=== PATIENT | male | born 1940 | race Caucasian/White ===

== ENCOUNTER → 2016-10-23 | Outpatient (CLI) | payer MEDICARE ==
[2016-10-23 11:53] LABS: Appearance,Urine Clear (Clear); Bilirubin,Urine Negative (Negative); Glucose,Urine (UA) Negative (Negative); Ketones,Urine Negative (Negative); Leukocyte Esterase,Urine Negative (Negative); Nitrite,Urine Negative (Negative); PH, Urine 5.5 (5.0-8.0); Protein,Urine Negative (Negative); Specific Gravity,Urine 1.016 (1.001-1.035); UA Billing (MACRO vs. MICRO) CHEM; Urobilinogen,Urine <2.0 mg/dL (<2.0)
[2016-10-23 11:55] LABS: Basophils % (A) 1 %; CH 29.1; CHCM 33.1; Eosinophils # (A) 0.2 k/uL (0-0.7); Eosinophils % (A) 4 %; HCT 38.5 % (39.0-53.0); HGB 12.7 gm/dL (13.0-17.5); Luc # (Auto) 0.13; Luc % (Auto) 2; Lymphocytes # (A) 1.7 k/uL (1.0-4.8); Lymphocytes % (A) 28 %; MCH 29.2 pg (25.0-35.0); MCHC 33.1 g/dL (31.0-37.0); MCV 88.2 fL (80.0-100.0); Mean Platelet Volume 7.8; Monocytes # (A) 0.4 k/uL (0-1.0); Monocytes % (A) 7 %; Neutrophils # (A) 3.4 k/uL (1.3-7.7); Neutrophils % (A) 59 %; RBC 4.36 m/uL (4.30-5.90); RDW 14.1 % (11.5-15.5); WBC 5.8 k/uL (3.8-10.6); WBC (Perox) 5.81
[2016-10-23 12:04] LABS: Partial Thromboplastin Time 23.5 sec (22.0-30.0); Prothrombin Time 10.4 sec (9.0-12.0)
[2016-10-23 12:15] LABS: Anion Gap 9 mmol/L; Blood Urea Nitrogen 23 mg/dL (9-20); Calcium 9.8 mg/dL (8.4-10.2); Carbon Dioxide 27 mmol/L (22-30); Chloride 105 mmol/L (98-107); Glucose 94 mg/dL (74-99); Non-African American GFR(MDRD) >60 (>60 ml/min/1.73 sqM); Sodium 141 mmol/L (137-145)
--- NOTE | 2016-10-23 15:12 | XR ---
EXAMINATION TYPE: XR chest 2V DATE OF EXAM: 10/23/2016 11:43 AM COMPARISON: None HISTORY: 75-year-old male presurgical testing for spine surgery TECHNIQUE: Frontal and lateral views FINDINGS: Heart is normal size. Mild elongation of the thoracic aorta with arch calcifications. Some strandy at electasis in the lower lungs. No consolidation or pleural effusion. IMPRESSION: No acute cardiopulmonary process.
== END | disposition home or self-care (01) ==
LOC: LABPAT 11:13
PROVIDERS: ATTEND Orthopaedic Surgery Orthopaedic Surgery of the Spine
DX: Z01.810 Encounter for preprocedural cardiovascular examination (principal); Z01.812 Encounter for preprocedural laboratory examination; M48.02 Spinal stenosis, cervical region
CPT/HCPCS: 71020; 80048; 81003; 85025; 85610; 85730; 86850; 86900; 86901; 87070

== ENCOUNTER 2016-11-05 08:03 | Inpatient (IN) | payer MEDICARE ==
[2016-10-27 14:37] VITALS: BMI 31.2
[~2016-11-05 08:03] MED LIST: BACITRACIN 50,000 UNIT, POLYMYXIN B 500,000 UNIT in SODIUM CHLORIDE 0.9% IRRIGATIO 1,00... IRRIGATION ONE; FAMOTIDINE 20 MG/2 ML VIAL IV PRN; HYDROmorphone 1 MG/ML 1 ML SYRINGE IVP PRN; LACTATED RINGERS 1,000 ML IV SCH; LIDOCAINE 1% 20 ML VIAL (10MG/ML) FOR IV START INTRADERMA PRN; MIDAZOLAM 2 MG/2 ML VIAL IV PRN; ONDANSETRON 4 MG/2 ML VIAL IVP PRN; ceFAZolin 2 GM in SODIUM CHLORIDE 0.9% 100 ML IVPB ONE
[2016-11-05] MEDS ORDERED: fentaNYL (PF) 50 MCG/ML 2 ML AMP IV ONE (12:01)
[2016-11-05] MEDS ORDERED: MIDAZOLAM 2 MG/2 ML VIAL ONE (12:30)
[2016-11-05] MEDS ORDERED: HYDROmorphone (PF) 1 MG/ML ONE (12:30)
[2016-11-05] MEDS ORDERED: SUCCINYLCHOLINE CHLORIDE 100 MG/5 ML SYR IV ONE (12:30)
[2016-11-05] MEDS ORDERED: ePHEDrine 50 MG/ML 1 ML AMP ONE (12:30)
[2016-11-05] MEDS ORDERED: fentaNYL (PF) 50 MCG/ML 2 ML AMP ONE (12:30)
[2016-11-05] MEDS ORDERED: GELATIN SPONGE,ABSORB (SMALL) 1 EACH SPONGE TOPICAL ONE (12:30)
[2016-11-05] MEDS ORDERED: PROPOFOL 10 MG/ML 20 ML VIAL IV ONE (12:30)
[2016-11-05] MEDS ORDERED: LIDOCAINE 0.5%-EPI 1:200,000 50 ML VIAL SQ ONE ×2 (12:30)
[2016-11-05] MEDS ORDERED: DEXAMETHASONE SOD PHOS (MDV) 100 MG/10 ML VIAL ONE (12:30)
[2016-11-05] MEDS ORDERED: THROMBIN (BOVINE) 5,000 UNIT VIAL TOPICAL ONE (12:30)
[2016-11-05] MEDS ORDERED: LIDOCAINE 1% INJ 10MG/ML (20 ML MDV) ONE (12:30)
[2016-11-05] MEDS ORDERED: BUPIVACAINE (PF) 0.25% 30 ML VIAL SQ ONE ×2 (13:34→14:18)
--- NOTE | 2016-11-05 13:48 | XR ---
EXAMINATION TYPE: XR cervical spine 1V DATE OF EXAM: 11/05/2016 COMPARISON: NONE HISTORY: Neck surgery. TECHNIQUE: Single portable crosstable lateral view of cervical spine is obtained intraoperatively FINDINGS: Metallic pointer is placed for surgical planning at C4-C5 disc space. IMPRESSION: As above
[2016-11-05] MEDS ORDERED: LACTATED RINGERS 1,000 ML IV ONE (14:05)
--- NOTE | 2016-11-05 14:16 | XR ---
EXAMINATION TYPE: XR cervical spine 1V DATE OF EXAM: 11/05/2016 COMPARISON: NONE HISTORY: Anterior cervical fusion TECHNIQUE: Cross table cervical spine FINDINGS: There is an anterior cervical fusion at C4-5. Patient is intubated. Prevertebral space appe ars normal. IMPRESSION: 1. Post C4-5 anterior cervical fusion.
--- NOTE | 2016-11-05 14:54 | P.OP ---
Date of Procedure: 11/05/16 Preoperative Diagnosis: Cervical stenosis C4 5, degenerative disc disease C4 5, history of prior fusion C5 6 C6 7, neck pain with upper extremity radiculopathy Left middle finger trigger finger Postoperative Diagnosis: Same Procedure(s) Performed: Anterior cervical discectomy and fusion C4 5 Placement of interbody allograft bone graft C4 5 Application of anterior cervical plate C4 5 Left middle finger A1 liseth release for trigger finger release, done as a separate procedure under the same anesthesia Implants: Anesthesia: GETA Pathology: none sent Condition: stable Disposition: PACU Indications for Procedure: Operative Findings: Description of Procedure: BRIEF OPERATIVE NOTE Preoperative Diagnosis: Cervical stenosis C4 5, degenerative disc disease C4 5, history of prior fusion C5 6 C6 7, neck pain with upper extremity radiculopathy Trigger finger left middle finger Postoperative Diagnosis: Same Procedure: Anterior cervical decompression and fusion C4 5 Placement of interbody graft C4 5 Application of anterior cervical plate C4 5 Trigger finger release with release of A1 liseth at left middle finger Surgeon: Dr. Salamanca Core Java Engineer: Julio Ng is present throughout the entire the case persistence during positioning, dissection, exposure, visualization, and all crucial elements of the case as well as closure. Anesthesia: General anesthesia Estimated blood loss: Approximately 75 mL Complications: None apparent Components implanted: K2M Jackson anterior cervical plate system with screws and Vikos interbody allograft bone graft Tourniquet time: Tourniquet was utilized during the A1 liseth release of the left middle finger for 12 minutes Disposition: To recovery room in good stable condition. OPERATIVE INDICATIONS The patient has had long-standing issues in their neck and upper extremities. He had a history of cervical issues in the past and had undergone anterior cervical deep compression and fusion at C5 6 and C6 7 in the past with overall good results. He developed adjacent level degeneration and further stenosis at C4 5 which was causing him increased pain and symptoms which correlated with his imaging findings of significant stenosis and adjacent level degeneration at C4 5. The patient was also having significant pain in his left middle finger with painful triggering at the site. He has been through injections at that area in the past with only brief relief. The patient has been through conservative treatment for his cervical spine and for his left middle finger. We discussed various treatment options including surgery, and the patient wishes to proceed with surgery We discussed the risk, patient's alternatives and benefits of surgery including but not limited to, risk of bleeding risk of infection, risk of need for further surgery, risk of decreased, loss of motion, muscle function, malunion nonunion, hardware failure , nerve damage, paralysis, heart attack, and . I answered all the patient' s questions to the best of my ability and leg which she can understand and elected to proceed with surgery at his cervical spine as well as his left middle finger. OPERATIVE SUMMARY After discussing all the risks, patient alternatives and benefits at length, the patient elected to proceed with surgical intervention, signed informed consent, and presented for their procedure. The patient was seen and examined in the preoperative holding area and the surgical site was marked. The patient was given antibiotics and brought to the operating room. The patient was positioned on the operating room table in a supine position being careful to pad any bony prominences and pressure points. The patient was sedated and intubated by anesthesia in standard fashion. Once the airway and C- spine were stabilized the patient's arms were padded and tucked at her side, with her shoulders gently taped. The head was placed in a donut pad with the neck in good neutral alignment and position. We were careful to maintain the patient's cervical spine and good neutral alignment and position throughout. The patient was prepped and draped in a normal standard fashion. An appropriate timeout and keystone protocol performed. We were able to proceed with the surgery. The local wound area was infiltrated with local anesthetic. An incision was made transversely approximately 2-1/2 cm over the appropriate levels of C4 5. Dissection was taken down subcutaneously to the level of the platysma which was split in line with its fibers. Dissection was taken with a carotid approach, with the trachea and esophagus medial and the carotid sheath laterally. We dissected down to the anterior surface of the vertebral bodies. Intraoperative x-ray was taken which showed a marker at the appropriate level at C4 5 over the prior fusion at C5 6 and 7. With the appropriate level positively confirmed, we were able to proceed with discectomy at the appropriate levels. All of the operative levels were exposed appropriately. The patient had all their twitches back, and there was no evidence of recurrent laryngeal issue. The wound was copiously irrigated and suctioned dry as had been done periodically throughout the case. At the appropriate level/levels, I established an annulotomy with an 11 blade scalpel. A discectomy was performed with a combination of pituitary rongeurs, curettes, a high-speed bur, and Kerrison rongeurs. The posterior longitudinal ligament was taken down as were any posterior osteophytes. Note was made of significant stenosis at the bilateral neural foramen particularly on the left. I was able to get excellent decompression with removal of posterior spurs and disc protrusion and the posterior longitudinal ligament. This gave good central and bilateral foraminal decompression. There is no evidence of any dural tear or leak. The endplates were prepared with a high-speed bur. With the endplates in good parallel position, I was able to size for the appropriate size interbody graft. The wound was irrigated and suctioned dry the graft was prepared and malleted into position. It had good alignment and position with the anterior surface flush with the anterior surface of the vertebral bodies. With the grafts intact, I was able to measure and contour and appropriate sized plate. The plate was positioned at the midline over the appropriate levels at C4 5. Screw holes were established with a hand drill and drill guide. Screws were placed in good alignment and position with excellent bony purchase. They were seated under the locking device. The construct was checked and found to be stable. Intraoperative x-ray was taken which showed good alignment and position of the implants at the appropriate levels at C4 5. There was no evidence of any dural tear or leak. Good hemostasis was maintained. The wound was copiously irrigated and suctioned dry as had been done periodically throughout the case. The platysma was closed with absorbable suture. The subcutaneous tissue was closed. The subcuticular tissue was closed with absorbable suture. The wound was cleaned and dried and dressed appropriately. A soft cervical collar was placed appropriately. At this point the drapes were broken down and under the same anesthesia with his cervical spine maintained we are able to prep and drape his left upper extremity for the procedure at his left middle finger. A nonsterile tourniquet was placed over his left arm and his hand was prepped and draped in normal standard fashion. An appropriate keystone protocol was established an appropriate timeout was completed. The left upper extremity was elevated and the tourniquet was inflated to 250 mmHg. It was utilized to total of 12 minutes. At the left middle finger we were able to identify the area over the A1 liseth at the distal metacarpal of the middle finger. The local wound area was infiltrated with plain anesthetic. An incision was made approximately 1-1/ 2 cm transversely dissection was taken down to level of the A1 liseth. The liseth was identified and split longitudinally with a 15 blade scalpel and careful to protect the flexor tendon underneath. Care was taken to release proximally and distally at the full extent of the A1 liseth. Flexor tendon was easily identified and mobilized taken through a range of motion and found to have no evidence of any further triggering. The wound was copiously irrigated and suctioned dry. We will proceed with closure. The skin was closed with 5-0 nylon. The area was cleaned and dried and dressed with Adaptic 4 x 4's and a bulky hand dressing. The drapes were broken down. The patient was woken up by anesthesia, extubated, transferred back gently to their hospital bed and brought to the recovery room in good stable condition. The patient will be admitted to the hospital for appropriate postoperative care , medical management and monitoring. We will continue to follow them closely about the postoperative course.
[2016-11-05] MEDS ORDERED: DIAZEPAM 5 MG TAB PO PRN (14:55)
[2016-11-05] MEDS ORDERED: ONDANSETRON 4 MG/2 ML VIAL IVP PRN (14:55)
[2016-11-05] MEDS ORDERED: HYDROmorphone 1 MG/ML 1 ML SYRINGE IVP PRN ×2 (14:55)
[2016-11-05] MEDS ORDERED: BENZOCAINE/MENTHOL LOZENG 1 EACH LOZENGE MUCOUS MEM PRN (14:55)
[2016-11-05] MEDS ORDERED: HYDROcodone/APAP 5-325MG 1 EACH TAB PO PRN (14:55)
[2016-11-05] MEDS ORDERED: ACETAMINOPHEN TAB 325 MG TAB PO PRN (14:57)
[2016-11-05] MEDS: SODIUM CHLORIDE 0.9% 1,000 ML IV SCH (16:38)
[2016-11-05] MEDS: ceFAZolin 2 GM in SODIUM CHLORIDE 0.9% 100 ML IVPB SCH ×2 (16:41→23:55)
[2016-11-05 16:52] VITALS: RESP 18
[2016-11-05] MEDS: traMADol 50 MG TAB PO PRN ×2 (18:08→23:55)
[2016-11-06] MEDS: SODIUM CHLORIDE 0.9% 1,000 ML IV SCH (06:04)
[2016-11-06 07:51] VITALS: BP 133/74; PULSE 72; TEMP 97.3
[2016-11-06 08:13] LABS: Basophils % (A) 0 %; CHCM 32.6; Eosinophils % (A) 0 %; HDW 2.51; HGB 11.8 gm/dL (13.0-17.5); Luc # (Auto) 0.07; Luc % (Auto) 1; Lymphocytes # (A) 1.1 k/uL (1.0-4.8); Lymphocytes % (A) 9 %; MCH 29.3 pg (25.0-35.0); MCHC 32.7 g/dL (31.0-37.0); MCV 89.5 fL (80.0-100.0); Mean Platelet Volume 7.8; Monocytes # (A) 0.3 k/uL (0-1.0); Monocytes % (A) 3 %; Neutrophils % (A) 88 %; RBC 4.03 m/uL (4.30-5.90); RDW 14.3 % (11.5-15.5); WBC 12.5 k/uL (3.8-10.6); WBC (Perox) 13.31
[2016-11-06] MEDS: traMADol 50 MG TAB PO PRN (08:29)
[2016-11-06] MEDS ORDERED: BACLOFEN 10 MG TAB PO SCH (09:00)
[2016-11-06] MEDS ORDERED: ATORVASTATIN 10 MG TAB PO SCH (09:00)
[2016-11-06] MEDS ORDERED: ASPIRIN 81 MG CHEW PO SCH (09:00)
[2016-11-06] MEDS ORDERED: LOSARTAN 50 MG TAB PO SCH (09:00)
--- NOTE | 2016-11-06 09:09 | P.DS ---
Providers Date of admission: 11/05/16 09:43 Attending physician: Nataliya Salamanca [facility] Course: The patient presented on the day of admission as per his operative note. He had severe cervical stenosis at C4 5 as well as painful trigger finger at the left middle finger. He underwent his surgery as per his operative note. He feels he is significant improving in terms of his neck and upper extremity. He is no longer triggering in his finger. He still has some soreness at his left finger. Physical Exam The incision site is clean dry and intact. There is no erythema no drainage. There is no purulence no evidence of infection. His neck does not have any significant swelling or erythema. His neck is soft and supple. His left hand dressings intact with no drainage or erythema. He is not triggering at his finger. Neurovascularly he is intact Abdomen soft and nontender. Chest has good excursion with deep inspiration and expiration. The patient has active and passive range of motion intact at the upper and lower extremities. There is no acute change in neurologic status. Hospital Course Postoperative day #1 status post anterior cervical discectomy and fusion at C4 5 for severe stenosis with degenerative disc disease as well as release of A1 liseth for his left middle finger trigger finger. The patient has been making good progress postoperatively. He feels he is making progress in terms of his overall symptoms at his neck and his left hand. They have completed the prophylactic antibiotics without any signs or symptoms of infection. The patient has been able to advance their diet, and is tolerating diet adequately. The pain was initially controlled with IV medications and is now controlled appropriately with oral medications. The patient has been able to increase their mobilization. The patient has progressed appropriately. I think they are in good stable condition for discharge today. They will be sent home with appropriate prescriptions. I answered their questions to the best of my ability in a language that they can understand and they are agreeable with the plan. They will follow up as directed in approximately 1 week or sooner if he is having problems. Patient Condition at Discharge: Good Plan - Discharge Summary New Discharge Prescriptions: New traMADol HCl [Ultram] 50 mg PO Q6H PRN #90 tab PRN Reason: Pain No Action Ibuprofen [Motrin] 200 mg PO Q6HR PRN PRN Reason: Pain Cetirizine HCl [Zyrtec] 10 mg PO DAILY PRN PRN Reason: seasonal allergies Acetaminophen Tab [Tylenol Tab] 325 mg PO Q4H PRN PRN Reason: Pain Simvastatin [Zocor] 20 mg PO DAILY Multivit-Min/FA/Lycopen/Lutein [Centrum Silver Tablet] 1 tab PO DAILY Losartan [Cozaar] 50 mg PO DAILY Baclofen [Lioresal] 10 mg PO DAILY Aspirin [Adult Low Dose Aspirin EC] 81 mg PO DAILY Discharge Medication List Acetaminophen Tab [Tylenol Tab] 325 mg PO Q4H PRN 10/27/16 [History] Aspirin [Adult Low Dose Aspirin EC] 81 mg PO DAILY 10/27/16 [History] Baclofen [Lioresal] 10 mg PO DAILY 10/27/16 [History] Cetirizine HCl [Zyrtec] 10 mg PO DAILY PRN 10/27/16 [History] Ibuprofen [Motrin] 200 mg PO Q6HR PRN 10/27/16 [History] Losartan [Cozaar] 50 mg PO DAILY 10/27/16 [History] Multivit-Min/FA/Lycopen/Lutein [Centrum Silver Tablet] 1 tab PO DAILY 10/27/16 [ History] Simvastatin [Zocor] 20 mg PO DAILY 10/27/16 [History] traMADol HCl [Ultram] 50 mg PO Q6H PRN #90 tab 11/06/16 [Rx] Follow up Appointment(s)/Referral(s): Nataliya Salamanca DO [Doctor of Osteopathic Medicine] - 1 Week (Follow-up for right hand and neck procedures) Activity/Diet/Wound Care/Special Instructions: For his cervical spine Keep site clean. May shower with waterproof Tegaderm intact. Do not soak in a tub. On Thursday remove dressing and then may shower with area uncovered. Leave Steri- Strips intact and allow them to fray off on their own. Avoid heavy or rigorous activity. May ambulate to tolerance. For his left hand Keep dressing intact for 48 hours. Then may remove dressing. Avoid heavy or rigorous activity with left hand. Keep sutures clean and intact Discharge Disposition: HOME SELF-CARE
[2016-11-06] MEDS ORDERED: MULTIVITAMINS, THERA 1 EACH TAB PO SCH (12:00)
== END 2016-11-06 10:13 | disposition home or self-care (01) | DRG 473 ==
LOC: 2ORMAIN 09:43 → 5MS5E 14:48 → 5ONC 11-06 03:28
PROVIDERS: ADMIT Orthopaedic Surgery Orthopaedic Surgery of the Spine; ATTEND Orthopaedic Surgery Orthopaedic Surgery of the Spine
PROC: 0LN80ZZ Release Left Hand Tendon, Open Approach (ICD-10-PCS; principal; 2016-11-05 11:45)
PROC: 0RG10K0 Fusion of Cervical Vertebral Joint with Nonautologous Tissue Substitute, Anterior Approach, Anterior Column, Open Approach (ICD-10-PCS; principal; 2016-11-05 11:45)
PROC: 0RT30ZZ Resection of Cervical Vertebral Disc, Open Approach (ICD-10-PCS; principal; 2016-11-05 11:45)
DX: M48.02 Spinal stenosis, cervical region (principal); E78.5 Hyperlipidemia, unspecified; Z79.899 Other long term (current) drug therapy; M50.11 Cervical disc disorder with radiculopathy, high cervical region; Z87.891 Personal history of nicotine dependence; M65.339 Trigger finger, unspecified middle finger
CPT/HCPCS: 72020; 85025; 86850; 86900; 86901

== ENCOUNTER 2016-12-11 06:36 | Observation (INO) | payer MEDICARE ==
[2016-12-11] MEDS ORDERED: RX INFO: IV CONTRAST WAS GIVEN 1 EACH MISC MISCELLANE PRN (07:22)
[2016-12-11] MEDS ORDERED: NITROGLYCERIN SL TABS 0.4 MG TAB SUBLINGUAL STA ×3 (07:22)
[2016-12-11] MEDS ORDERED: ASPIRIN 81 MG CHEW PO STA (07:22)
--- NOTE | 2016-12-11 07:25 | ED ---
General Adult HPI - General Chief complaint: Chest Pain Stated complaint: Chest Pain Time Seen by Provider: 12/11/16 07:00 Source: patient, family, RN notes reviewed Mode of arrival: ambulatory Limitations: no limitations - History of Present Illness Initial comments: Patient is a pleasant 75-year-old male presenting to the emergency department complaining of chest discomfort. Discomfort feels like squeezing under the left breast. Discomfort has been waxing and waning but progressively worsening since 8:00 last night. Patient did move some furniture prior to onset of symptoms, around an hour however did not notice any discomfort at that time. Patient states it hurts to take a deep breath otherwise is breathing okay. No nausea or diaphoresis. No history of similar symptoms previously. Discomfort is starting to get severe. Patient did have cervical fusion done just over 1 month ago. - Related Data Home Medications Medication Instructions Recorded Confirmed Acetaminophen Tab [Tylenol Tab] 650 mg PO Q4H PRN 10/27/16 12/11/16 Aspirin [Adult Low Dose Aspirin EC] 81 mg PO DAILY 10/27/16 12/11/16 Baclofen [Lioresal] 10 mg PO BID PRN 10/27/16 12/11/16 Cetirizine HCl [Zyrtec] 10 mg PO DAILY PRN 10/27/16 12/11/16 Losartan [Cozaar] 50 mg PO DAILY 10/27/16 12/11/16 Multivit-Min/FA/Lycopen/Lutein 1 tab PO DAILY 10/27/16 12/11/16 [Centrum Silver Tablet] Simvastatin [Zocor] 20 mg PO HS 10/27/16 12/11/16 HYDROcodone/APAP 5-325MG [[place] 1 tab PO Q8H PRN 12/11/16 12/11/16 5-325] Allergies Allergy/AdvReac Type Severity Reaction Status Date / Time morphine Allergy Severe Itching Verified 12/11/16 07:29 hydrocodone [From Vicodin] Allergy Itching Verified 12/11/16 07:29 Review of Systems ROS Statement: Those systems with pertinent positive or pertinent negative responses have been documented in the HPI. ROS Other: All systems not noted in ROS Statement are negative. Constitutional: Denies: fever Eyes: Denies: eye pain ENT: Denies: ear pain Respiratory: Denies: cough Cardiovascular: Reports: chest pain Endocrine: Denies: fatigue Gastrointestinal: Denies: abdominal pain Genitourinary: Denies: dysuria Musculoskeletal: Denies: back pain Skin: Denies: rash Neurological: Denies: weakness Past Medical History Past Medical History: Hyperlipidemia, Hypertension, Sleep Apnea/CPAP/BIPAP Additional Past Medical History / Comment(s): muscle spasms, seasonal allergies History of Any Multi-Drug Resistant Organisms: None Reported Past Surgical History: Appendectomy, Back Surgery, Heart Catheterization, Joint Replacement, Orthopedic Surgery, Tonsillectomy Additional Past Surgical History / Comment(s): lumbar and cervical fusion, left knee replaced, guera rotator cuff, guera cataract sx with implants, Past Anesthesia/Blood Transfusion Reactions: No Reported Reaction Past Psychological History: No Psychological Hx Reported Smoking Status: Former smoker - Past Family History Mother Family Medical History: Cancer Additional Family Medical History / Comment(s): colon General Exam Limitations: no limitations General appearance: alert, in no apparent distress Head exam: Present: atraumatic Eye exam: Present: normal appearance, PERRL ENT exam: Present: normal oropharynx Neck exam: Present: normal inspection Respiratory exam: Present: normal lung sounds bilaterally. Absent: chest wall tenderness Cardiovascular Exam: Present: regular rate, normal rhythm Expanded Peripheral pulses: 2+: Radial (R), Radial (L), Dorsalis Pedis (R), Dorsalis Pedis (L) GI/Abdominal exam: Present: soft. Absent: tenderness Extremities exam: Present: normal inspection. Absent: pedal edema, calf tenderness Neurological exam: Present: alert Psychiatric exam: Present: normal affect, normal mood Skin exam: Present: normal color Course Vital Signs 12/11/16 12/11/16 12/11/16 06:39 07:29 07:34 Temperature 97.8 F Pulse Rate 74 69 75 Respiratory 18 18 20 Rate Blood Pressure 125/69 121/66 89/50 O2 Sat by Pulse 96 95 94 L Oximetry 12/11/16 08:12 Temperature Pulse Rate 72 Respiratory 18 Rate Blood Pressure 114/60 O2 Sat by Pulse 96 Oximetry - Reevaluation(s) Reevaluation #1: 12/11/16 08:47 Patient reevaluated and resting comfortably in bed. Patient and family updated on results and plan. They were specifically updated on concerns for thoracic aneurysm and need for follow-up with this. Patient already has known aortic aneurysm and does see Dr. Barajas from vascular surgery for this. They are agreeable to follow-up for thoracic aneurysm as well. EKG Findings - EKG Comments: EKG Findings:: Sinus rhythm at 76. First-degree AV block NC of 228. QRS 76. QT 380. QTC 427. Normal axis. Normal QRS. No acute ST change. Medical Decision Making - Medical Decision Making Case was discussed with Dr. Morocho, who will admit for Dr. Dudley. - Lab Data Result diagrams: 12/11/16 07:03 12/11/16 07:03 Lab Results 12/11/16 12/11/16 12/11/16 Range/Units 07:03 07:03 07:03 WBC 10.6 (3.8-10.6) k/uL RBC 4.28 L (4.30-5.90) m/uL Hgb 12.5 L (13.0-17.5) gm/dL Hct 36.7 L (39.0-53.0) % MCV 85.7 (80.0-100.0) fL MCH 29.3 (25.0-35.0) pg MCHC 34.2 (31.0-37.0) g/dL RDW 13.9 (11.5-15.5) % Plt Count 133 L (150-450) k/uL Neutrophils % 73 % Lymphocytes % 19 % Monocytes % 4 % Eosinophils % 2 % Basophils % 1 % Neutrophils # 7.7 (1.3-7.7) k/uL Lymphocytes # 2.1 (1.0-4.8) k/uL Monocytes # 0.4 (0-1.0) k/uL Eosinophils # 0.2 (0-0.7) k/uL Basophils # 0.1 (0-0.2) k/uL PT (9.0-12.0) sec INR (<1.1) APTT (22.0-30.0) sec Sodium 140 (137-145) mmol/L Potassium 4.0 (3.5-5.1) mmol/L Chloride 104 (98-107) mmol/L Carbon Dioxide 23 (22-30) mmol/L Anion Gap 13 mmol/L BUN 23 H (9-20) mg/dL Creatinine 0.85 (0.66-1.25) mg/dL Est GFR (MDRD) Af Amer >60 (>60 ml/min/1.73 sqM) Est GFR (MDRD) Non-Af >60 (>60 ml/min/1.73 sqM) Glucose 110 H (74-99) mg/dL Calcium 9.3 (8.4-10.2) mg/dL Magnesium 2.1 (1.6-2.3) mg/dL Total Bilirubin 0.5 (0.2-1.3) mg/dL AST 21 (17-59) U/L ALT 26 (21-72) U/L Alkaline Phosphatase 81 (38-126) U/L Total Creatine Kinase 125 (55-170) U/L CK-MB (CK-2) 1.6 (0.0-2.4) ng/mL CK-MB (CK-2) Rel Index 1.3 Troponin I <0.012 (0.000-0.034) ng/mL Total Protein 7.3 (6.3-8.2) g/dL Albumin 4.2 (3.5-5.0) g/dL 12/11/16 Range/Units 07:03 WBC (3.8-10.6) k/uL RBC (4.30-5.90) m/uL Hgb (13.0-17.5) gm/dL Hct (39.0-53.0) % MCV (80.0-100.0) fL MCH (25.0-35.0) pg MCHC (31.0-37.0) g/dL RDW (11.5-15.5) % Plt Count (150-450) k/uL Neutrophils % % Lymphocytes % % Monocytes % % Eosinophils % % Basophils % % Neutrophils # (1.3-7.7) k/uL Lymphocytes # (1.0-4.8) k/uL Monocytes # (0-1.0) k/uL Eosinophils # (0-0.7) k/uL Basophils # (0-0.2) k/uL PT 10.1 (9.0-12.0) sec INR 1.0 (<1.1) APTT 24.7 (22.0-30.0) sec Sodium (137-145) mmol/L Potassium (3.5-5.1) mmol/L Chloride (98-107) mmol/L Carbon Dioxide (22-30) mmol/L Anion Gap mmol/L BUN (9-20) mg/dL Creatinine (0.66-1.25) mg/dL Est GFR (MDRD) Af Amer (>60 ml/min/1.73 sqM) Est GFR (MDRD) Non-Af (>60 ml/min/1.73 sqM) Glucose (74-99) mg/dL Calcium (8.4-10.2) mg/dL Magnesium (1.6-2.3) mg/dL Total Bilirubin (0.2-1.3) mg/dL AST (17-59) U/L ALT (21-72) U/L Alkaline Phosphatase (38-126) U/L Total Creatine Kinase (55-170) U/L CK-MB (CK-2) (0.0-2.4) ng/mL CK-MB (CK-2) Rel Index Troponin I (0.000-0.034) ng/mL Total Protein (6.3-8.2) g/dL Albumin (3.5-5.0) g/dL - Radiology Data Radiology results: report reviewed (CT of the chest does show no pulmonary embolism. There is thoracic aortic aneurysm. Atelectasis versus early consolidation lung bases.), image reviewed (X-ray shows possible left base developing infiltrate.) Disposition Clinical Impression: Chest pain Disposition: ADMITTED IP TO THIS [facility] Referrals: Em Em MD [Primary Care Provider] - 1-2 days Decision Time: 09:23
[2016-12-11 07:35] LABS: Basophils # (A) 0.1 k/uL (0-0.2); Basophils % (A) 1 %; CH 28.7; CHCM 33.6; Eosinophils # (A) 0.2 k/uL (0-0.7); Eosinophils % (A) 2 %; HCT 36.7 % (39.0-53.0); HDW 2.57; HGB 12.5 gm/dL (13.0-17.5); Luc # (Auto) 0.13; Luc % (Auto) 1; Lymphocytes # (A) 2.1 k/uL (1.0-4.8); Lymphocytes % (A) 19 %; MCH 29.3 pg (25.0-35.0); MCHC 34.2 g/dL (31.0-37.0); MCV 85.7 fL (80.0-100.0); Mean Platelet Volume 7.8; Monocytes # (A) 0.4 k/uL (0-1.0); Monocytes % (A) 4 %; Neutrophils # (A) 7.7 k/uL (1.3-7.7); Neutrophils % (A) 73 %; RBC 4.28 m/uL (4.30-5.90); RDW 13.9 % (11.5-15.5); WBC 10.6 k/uL (3.8-10.6); WBC (Perox) 10.06
[2016-12-11 07:44] LABS: Partial Thromboplastin Time 24.7 sec (22.0-30.0); Prothrombin Time 10.1 sec (9.0-12.0)
[2016-12-11 07:47] LABS: ALT 26 U/L (21-72); AST 21 U/L (17-59); Alkaline Phosphatase 81 U/L (38-126); Anion Gap 13 mmol/L; Blood Urea Nitrogen 23 mg/dL (9-20); Calcium 9.3 mg/dL (8.4-10.2); Carbon Dioxide 23 mmol/L (22-30); Chloride 104 mmol/L (98-107); Glucose 110 mg/dL (74-99); Magnesium 2.1 mg/dL (1.6-2.3); Non-African American GFR(MDRD) >60 (>60 ml/min/1.73 sqM); Sodium 140 mmol/L (137-145); Total Bilirubin 0.5 mg/dL (0.2-1.3); Total Protein 7.3 g/dL (6.3-8.2)
--- NOTE | 2016-12-11 08:00 | XR ---
EXAMINATION TYPE: XR chest 2V DATE OF EXAM: 12/11/2016 COMPARISON: 10/23/2016 HISTORY: Shortness of breath TECHNIQUE: Frontal and lateral views of the chest are obtained. FINDINGS: Scattered senescent parenchymal changes noted. Hyperinflation compatible with COPD. Patchy density left medial lung base may reflect developing infiltrate. Correlate clinically and prog ress studies may be of value. Heart size is stable. Mediastinal structures are stable and grossly unremarkable. No evidence for hilar prominence. Degenerative changes dorsal spine. IMPRESSION: 1. Patchy density left medial lung base may reflect developing infiltrate. Correlate clinically and p rogress studies may be of value.
[2016-12-11 08:02] LABS: Creatine Kinase 125 U/L (55-170)
[2016-12-11 08:14] LABS: Creatine Kinase MB 1.6 ng/mL (0.0-2.4); Troponin I <0.012 ng/mL (0.000-0.034)
--- NOTE | 2016-12-11 08:25 | CT ---
EXAMINATION TYPE: CT angio chest DATE OF EXAM: 12/11/2016 8:13 AM COMPARISON: NONE HISTORY: SOB, Lt upper chest pain CT DLP: 583 mGycm Automated exposure control for dose reduction was used. CONTRAST: CTA scan of the thorax is performed with IV Contrast, patient injected with 100 mL of Omnipaque 350, pulmonary embolism protocol. . FINDINGS: There is dependent atelectasis or early consolidation at the lung bases. There is no significant axillary, mediastinal or hilar adenopathy. There is no evidence of pulmonary embolus. The aortic root is dilated measuring 4.1 cm. At the level of the proximal arch, the aorta measures 3. 8 cm. The proximal descending aorta is aneurysmal measuring 4 cm. At the level of the aortic hiatus, the aorta measures 3.2 cm. The heart is enlarged. There is no pleural or pericardial fluid. There is a 5.7 cm hypoechoic rounded structure in the right upper quadrant likely emanating from the right kidney and likely representing a cyst. Visualized portions of the upper abdomen are otherwise u nremarkable. There is hypertrophic spondylosis within the spine. IMPRESSION: 1. THERE IS NO EVIDENCE OF PULMONARY EMBOLUS. 2. THORACIC AORTIC ANEURYSM. 3. CARDIOMEGALY. 4. ATELECTASIS VERSUS EARLY CONSOLIDATION, BOTH LUNG BASES. 5. PROBABLE CYST ARISING FROM THE RIGHT KIDNEY. THIS COULD BE CONFIRMED WITH ULTRASOUND. 6. DEGENERATIVE CHANGES WITHIN THE SPINE.
[2016-12-11] MEDS ORDERED: NITROGLYCERIN SL TABS 0.4 MG TAB SUBLINGUAL PRN (09:23)
[2016-12-11] MEDS ORDERED: HYDROmorphone 1 MG/ML 1 ML SYRINGE IVP STA (09:27)
[2016-12-11] MEDS ORDERED: BACLOFEN 10 MG TAB PO PRN (10:38)
[2016-12-11] MEDS ORDERED: HYDROcodone/APAP 5-325MG 1 EACH TAB PO PRN (10:38)
[2016-12-11] MEDS ORDERED: LORATADINE 10 MG TAB PO PRN (10:38)
--- NOTE | 2016-12-11 10:52 | P.HPIM ---
History of Present Illness H&P Date: 12/11/16 Chief Complaint: Chest pain This is a 75-year-old male, patient of Dr. Dudley. He has a known past medical history of hypertension, hyperlipidemia and obstructive sleep apnea. Patient did also have her cervical fusion recently in October [address] Salamanca. Patient reports that his neck had been showing improvement. He does wear cervical collar. Yesterday evening around 6:00 patient moved some heavy furniture from his truck bed into the garage. He patient reports that he was sliding it and pulling it. After that around 8 PM he started having pains along the left rib cage. Mostly on the side and then it moved into the chest. Patient clinically comfortable to sleep last night. And he was still having the pains this morning. Therefore he came into the emergency room for further evaluation and treatment. Patient was given nitroglycerin, aspirin and Dilaudid. At this time his pain has shown some improvement. 2 first troponin is negative. EKG shows normal sinus rhythm with a first-degree AV block. Chest x-ray showing opacity density in the left medial lung base with questionable developing pneumonia. CTA of the chest was negative for a PE it did reveal a thoracic aortic aneurysm cardiomegaly, atelectasis versus early consolidation, probable cysts arising in the right kidney. And degenerative changes within the spine. Cardiology has been consulted. Patient has been admitted to the observation unit. He reports his last stress test was in October 2016 and it was negative. He required that before he went for his neck fusion. He says he's had a stress test several years ago and that was negative. Patient has no prior history of any heart attacks coronary artery disease heart failure. He had a mother who of a heart attack. He also reports an a brother who is had kidney cancer and had to have kidney removed. Patient does have some shortness of breath at times. He has chest pain when taking a deep breath. He denies any nausea or vomiting denies any diaphoresis. Denies any bowel movement changes or urinary symptoms. Denies any cough fever or chills or sweats. Review of Systems Please refer to HPI otherwise unremarkable Past Medical History Past Medical History: Coronary Artery Disease (CAD), Hyperlipidemia, Prostate Disorder, Sleep Apnea/CPAP/BIPAP Additional Past Medical History / Comment(s): Aortic aneurysm (small), ALEJANDRA with CPAP, muscle spasms, benign polyps, BPH, possible nephrolithiaisis, sinus problems History of Any Multi-Drug Resistant Organisms: None Reported Past Surgical History: Appendectomy, Back Surgery, Heart Catheterization, Joint Replacement, Orthopedic Surgery, Tonsillectomy Additional Past Surgical History / Comment(s): lumbar and cervical fusions with last cervical fusion 11/05/16, left knee replaced, guera rotator cuff, guera cataract sx with implants, cardiac cath-treated medically, EGD/colonoscopy/ polypectomies, R great toe with pin, bilateral tennis elbow surgery. Past Anesthesia/Blood Transfusion Reactions: No Reported Reaction Smoking Status: Former smoker (Quit smoking over 40 years ago) Past Alcohol Use History: Occasional - Past Family History Mother Family Medical History: Cancer Additional Family Medical History / Comment(s): Mother of colon cancer at the age of 75yrs. Father Family Medical History: Chest Pain / Angina, Respiratory Disorder Additional Family Medical History / Comment(s): Father had black lung (worked in coal [employer]s). He at the age of 94 yrs. Medications and Allergies Home Medications Medication Instructions Recorded Confirmed Type Acetaminophen Tab [Tylenol Tab] 650 mg PO Q4H PRN 10/27/16 12/11/16 History Aspirin [Adult Low Dose Aspirin EC] 81 mg PO DAILY 10/27/16 12/11/16 History Baclofen [Lioresal] 10 mg PO BID PRN 10/27/16 12/11/16 History Cetirizine HCl [Zyrtec] 10 mg PO DAILY PRN 10/27/16 12/11/16 History Losartan [Cozaar] 50 mg PO DAILY 10/27/16 12/11/16 History Multivit-Min/FA/Lycopen/Lutein 1 tab PO DAILY 10/27/16 12/11/16 History [Centrum Silver Tablet] Simvastatin [Zocor] 20 mg PO HS 10/27/16 12/11/16 History HYDROcodone/APAP 5-325MG [[place] 1 tab PO Q8H PRN 12/11/16 12/11/16 History 5-325] Allergies Allergy/AdvReac Type Severity Reaction Status Date / Time morphine Allergy Severe Itching Verified 12/11/16 07:29 hydrocodone [From Vicodin] Allergy Itching Verified 12/11/16 07:29 Physical Exam Vitals: Vital Signs Temp Pulse Pulse Resp BP BP Pulse Ox 12/11/16 10:02 97.4 F L 69 18 125/70 94 L 12/11/16 09:48 97.6 F 73 20 122/74 95 12/11/16 08:12 72 18 114/60 96 12/11/16 07:34 75 20 89/50 94 L 12/11/16 07:29 69 18 121/66 95 12/11/16 06:39 97.8 F 74 18 125/69 96 Intake and Output 12/10/16 12/11/16 12/11/16 22:59 06:59 14:59 Other: Weight 105.687 kg 107.4 kg Patient Weight 12/12/16 06:59 Weight 107.4 kg Head normocephalic Neck cervical collar in place. Removal cervical collar. Patient has range of motion in his neck slightly limited. The patient reports improved since surgery. Surgical incision clean dry and intact. Lungs diminished at the bases Heart regular rate and rhythm S1-S2, no rub or gallop Abdomen is soft nontender nondistended positive bowel sounds no hepatosplenomegaly Extremities no edema Neuro alert and orientated to 3. Hand corporate driver equal bilaterally. Radial pulses intact bilaterally Results CBC & Chem 7: 12/11/16 07:03 12/11/16 07:03 Labs: Abnormal Lab Results - Last 24 Hours (Table) 12/11/16 12/11/16 Range/Units 07:03 07:03 RBC 4.28 L (4.30-5.90) m/uL Hgb 12.5 L (13.0-17.5) gm/dL Hct 36.7 L (39.0-53.0) % Plt Count 133 L (150-450) k/uL BUN 23 H (9-20) mg/dL Glucose 110 H (74-99) mg/dL Thrombosis Risk Factor Assmnt - Choose All That Apply Any of the Below Risk Factors Present?: Yes Each Factor Represents 1 point: Obesity (BMI >25) Other Risk Factors: Yes Each Risk Factor Represents 3 Points: Age 75 years or older Other congenital or acquired thrombophilia - If yes, enter type in comment: No Thrombosis Risk Factor Assessment Total Risk Factor Score: 4 Thrombosis Risk Factor Assessment Level: Moderate Risk Assessment and Plan Plan: 1. Chest pain: First troponin negative. We'll monitor for the cardiac enzymes. EKG normal sinus rhythm with first-degree AV block. Cardiology has been consulted. CTA negative for PE. Pain could be musculoskeletal. Continue with the [place] as needed. 2. Atelectasis: Order incentive spirometry. Doubt pneumonia. Patient has no cough no fever and no elevation in white count 3. Thoracic aortic aneurysm with a known abdominal aortic aneurysm. Patient follows up with Dr. Barajas outpatient 4. Possible right kidney cyst noted on CAT scan. Patient will require a renal ultrasound for further evaluation. 5. Essential hypertension: Blood pressure stable resume Cozaar 6. Hyperlipidemia: Continue simvastatin 7. Obstructive sleep apnea: Usually uses his CPAP however dense his neck surgery he has not been comfortable with using the CPAP. GI prophylaxis Pepcid and DVT prophylaxis subcu heparin Time with Patient: Greater than 30 (Greater than 50% of the total time spent in counseling and coordination of care.I performed an examination of the patient and discussed their management with the physician Supervisor Painting Department. I have reviewed the Physician Supervisor Painting Department's notes and agree with the documented findings and plan of care)
[2016-12-11 11:47] VITALS: BP 119/70; PULSE 72; RESP 17; TEMP 97.5
[2016-12-11] MEDS ORDERED: NITROGLYCERIN OINT 1 INCH/GM PACKET TOPICAL SCH (12:00)
--- NOTE | 2016-12-11 12:18 | P.CRDCN ---
History of Present Illness Reason for Consult (text): Chest pain History of present illness: This patient's medical records were reviewed us patient came to the emergency room with the persistent chest pain in the lower left rib cage area. Patient gives a history that the patient he was moving some heavy furniture from his truck into the garage. He was sliding it and pulling it. Is currently patient started having the pain in the lower left rib cage area. Pain persisted throughout the night and so he came to the emergency room. An denies any significant shortness of breath cough or fever or chills AG admitted cardiac enzymes were normal in the emergency room and had a CT of the chest done which was normal. Patient has a history of for mild coronary artery disease by cardiac catheterization in 2009. Patient to had a stress test done 3 months ago prior to his cervical fusion surgery which was normal and denies any history of exertional angina syndrome has a history of for hypertension and hyperlipidemia. Past Medical History Past Medical History: Coronary Artery Disease (CAD), Hyperlipidemia, Prostate Disorder, Sleep Apnea/CPAP/BIPAP Additional Past Medical History / Comment(s): Aortic aneurysm (small), ALEJANDRA with CPAP, muscle spasms, benign polyps, BPH, possible nephrolithiaisis, sinus problems History of Any Multi-Drug Resistant Organisms: None Reported Past Surgical History: Appendectomy, Back Surgery, Heart Catheterization, Joint Replacement, Orthopedic Surgery, Tonsillectomy Additional Past Surgical History / Comment(s): lumbar and cervical fusions with last cervical fusion 11/05/16, left knee replaced, guera rotator cuff, guera cataract sx with implants, cardiac cath-treated medically, EGD/colonoscopy/ polypectomies, R great toe with pin, bilateral tennis elbow surgery. Past Anesthesia/Blood Transfusion Reactions: No Reported Reaction Smoking Status: Former smoker (Quit smoking over 40 years ago) Past Alcohol Use History: Occasional - Past Family History Mother Family Medical History: Cancer Additional Family Medical History / Comment(s): Mother of colon cancer at the age of 75yrs. Father Family Medical History: Chest Pain / Angina, Respiratory Disorder Additional Family Medical History / Comment(s): Father had black lung (worked in [employer]). He at the age of 94 yrs. Medications and Allergies Home Medications Medication Instructions Recorded Confirmed Type Acetaminophen Tab [Tylenol Tab] 650 mg PO Q4H PRN 10/27/16 12/11/16 History Aspirin [Adult Low Dose Aspirin EC] 81 mg PO DAILY 10/27/16 12/11/16 History Baclofen [Lioresal] 10 mg PO BID PRN 10/27/16 12/11/16 History Cetirizine HCl [Zyrtec] 10 mg PO DAILY PRN 10/27/16 12/11/16 History Losartan [Cozaar] 50 mg PO DAILY 10/27/16 12/11/16 History Multivit-Min/FA/Lycopen/Lutein 1 tab PO DAILY 10/27/16 12/11/16 History [Centrum Silver Tablet] Simvastatin [Zocor] 20 mg PO HS 10/27/16 12/11/16 History HYDROcodone/APAP 5-325MG [[place] 1 tab PO Q8H PRN 12/11/16 12/11/16 History 5-325] Allergies Allergy/AdvReac Type Severity Reaction Status Date / Time morphine Allergy Severe Itching Verified 12/11/16 07:29 hydrocodone [From Vicodin] Allergy Itching Verified 12/11/16 07:29 Physical Exam Vitals: Vital Signs Temp Pulse Pulse Resp BP BP Pulse Ox 12/11/16 11:45 97.5 F L 72 17 119/70 94 L 12/11/16 10:20 67 18 12/11/16 10:02 97.4 F L 69 18 125/70 94 L 12/11/16 09:48 97.6 F 73 20 122/74 95 12/11/16 08:12 72 18 114/60 96 12/11/16 07:34 75 20 89/50 94 L 12/11/16 07:29 69 18 121/66 95 12/11/16 06:39 97.8 F 74 18 125/69 96 Intake and Output 12/10/16 12/11/16 12/11/16 22:59 06:59 14:59 Other: Weight 105.687 kg 107.4 kg Patient Weight 12/12/16 06:59 Weight 107.4 kg Vital signs are reviewed. HEENT negative. Neck supple. No increase in jugular venous pressure. No carotid bruit noted. Chest. There is a localized tenderness on the left side of the chest. Heart. First and second heart sounds are normal no murmurs are heard. Lungs. Clinically clear to auscultation and percussion. Abdomen is soft. Extremities peripheral pulses since are 2+. EKG shows normal sinus rhythm without any acute ischemic changes First troponin is normal. Results 12/11/16 07:03 12/11/16 07:03 Cardiac Enzymes 12/11/16 12/11/16 Range/Units 07:03 07:03 AST 21 (17-59) U/L CK-MB (CK-2) 1.6 (0.0-2.4) ng/mL Troponin I <0.012 (0.000-0.034) ng/mL Coagulation 12/11/16 Range/Units 07:03 PT 10.1 (9.0-12.0) sec APTT 24.7 (22.0-30.0) sec CBC 12/11/16 Range/Units 07:03 WBC 10.6 (3.8-10.6) k/uL RBC 4.28 L (4.30-5.90) m/uL Hgb 12.5 L (13.0-17.5) gm/dL Hct 36.7 L (39.0-53.0) % Plt Count 133 L (150-450) k/uL Comprehensive Metabolic Panel 12/11/16 Range/Units 07:03 Sodium 140 (137-145) mmol/L Potassium 4.0 (3.5-5.1) mmol/L Chloride 104 (98-107) mmol/L Carbon Dioxide 23 (22-30) mmol/L BUN 23 H (9-20) mg/dL Creatinine 0.85 (0.66-1.25) mg/dL Glucose 110 H (74-99) mg/dL Calcium 9.3 (8.4-10.2) mg/dL AST 21 (17-59) U/L ALT 26 (21-72) U/L Alkaline Phosphatase 81 (38-126) U/L Total Protein 7.3 (6.3-8.2) g/dL Albumin 4.2 (3.5-5.0) g/dL Current Medications Generic Name Dose Route Start Last Admin Trade Name Freq PRN Reason Stop Dose Admin Hydrocodone Bitart/Acetaminophen 1 each 12/11/16 10:38 [place] 5-325 PO Q8H PRN Pain Aspirin 325 mg 12/12/16 09:00 Aspirin PO DAILY CHANTELLE Atorvastatin Calcium 10 mg 12/11/16 21:00 Lipitor PO HS [facility]ANTELLE Baclofen 10 mg 12/11/16 10:38 Lioresal PO BID PRN Muscle Spasm Famotidine 20 mg 12/12/16 09:00 Pepcid PO DAILY [facility] Heparin Sodium (Porcine) 5,000 unit 12/11/16 21:00 Heparin SQ Q12HR [facility]ANTELLE Loratadine 10 mg 12/11/16 10:38 Claritin PO DAILY PRN seasonal allergies Losartan Potassium 50 mg 12/12/16 09:00 Cozaar PO DAILY [facility] Miscellaneous Information 1 each 12/11/16 07:22 Rx Info: Iv Contrast Was Given MISCELLANE 12/13/16 07:23 DAILY PRN Per Protocol Multivitamins 1 each 12/12/16 12:00 Theragran PO 1200 [facility] Nitroglycerin 1 inch 12/11/16 12:00 Nitro-Bid Oint TOPICAL Q6HR [facility] Nitroglycerin 0.4 mg 12/11/16 09:23 Nitrostat SUBLINGUAL Q5M PRN Chest Pain Sodium Chloride 10 ml 12/11/16 21:00 Saline Flush IV BID [facility] Intake and Output 12/10/16 12/11/16 12/11/16 22:59 06:59 14:59 Other: Weight 105.687 kg 107.4 kg Patient Weight 12/12/16 06:59 Weight 107.4 kg 12/11/16 07:03 12/11/16 07:03 EKG Interpretations (text) EKG shows normal sinus rhythm without any ischemic changes. Assessment and Plan Plan: This patient's chest pain appears to be musculoskeletal chest wall pain. She' ll EKGs and troponins are normal symptomatic medical therapy is recommended the recent stress test was normal. EKG is normal.
[2016-12-11] MEDS ORDERED: ATORVASTATIN 20 MG TAB PO SCH (12:45)
[2016-12-11 13:35] LABS: Creatine Kinase 105 U/L (55-170)
--- NOTE | 2016-12-11 13:39 | P.DS ---
Providers Date of admission: 12/11/16 09:26 Expected date of discharge: 12/11/16 Attending physician: Jade Andujar Consults: 12/11/16 09:26 Consult Physician Urgent Consulting Provider: Narinder Leone Consult Reason/Comments: cp Do you want consulting provider notified?: Yes Primary care physician: Em Em [facility] Course: 1. Chest pain: Likely musculoskeletal secondary to moving furniture. First troponin negative. EKG normal sinus rhythm with first-degree AV block. Evaluated by cardiology service. They recommend starting an NSAID. Dr. Salamanca' s service was notified and they okayed to restart the Aleve. CTA negative for PE. Patient also has [place] as needed every 8 hours 2. Atelectasis: Order incentive spirometry. Doubt pneumonia. Patient has no cough no fever and no elevation in white count 3. Thoracic aortic aneurysm with a known abdominal aortic aneurysm. Will have patient follow-up with Dr. Barajas in 1 week 4. Possible right kidney cyst noted on CAT scan. Patient will require a renal ultrasound for further evaluation outpatient 5. Essential hypertension: Blood pressure stable resume Cozaar 6. Hyperlipidemia: Continue simvastatin 7. Obstructive sleep apnea: Usually uses his CPAP however dense his neck surgery he has not been comfortable with using the CPAP. Hospital course This is a 75-year-old male, patient of Dr. Dudley. He has a known past medical history of hypertension, hyperlipidemia and obstructive sleep apnea. Patient did also have her cervical fusion recently in October [address] Salamanca. Patient reports that his neck had been showing improvement. He does wear cervical collar. Yesterday evening around 6:00 patient moved some heavy furniture from his truck bed into the garage. He patient reports that he was sliding it and pulling it. After that around 8 PM he started having pains along the left rib cage. Mostly on the side and then it moved into the chest. Patient clinically comfortable to sleep last night. And he was still having the pains this morning. Therefore he came into the emergency room for further evaluation and treatment. Patient was given nitroglycerin, aspirin and Dilaudid. At this time his pain has shown some improvement. 2 first troponin is negative. EKG shows normal sinus rhythm with a first-degree AV block. Chest x-ray showing opacity density in the left medial lung base with questionable developing pneumonia. CTA of the chest was negative for a PE it did reveal a thoracic aortic aneurysm cardiomegaly, atelectasis versus early consolidation, probable cysts arising in the right kidney. And degenerative changes within the spine. Cardiology has been consulted. Patient has been admitted to the observation unit. He reports his last stress test was in October 2016 and it was negative. He required that before he went for his neck fusion. He says he's had a stress test several years ago and that was negative. Patient has no prior history of any heart attacks coronary artery disease heart failure. He had a mother who of a heart attack. He also reports an a brother who is had kidney cancer and had to have kidney removed. Patient does have some shortness of breath at times. He has chest pain when taking a deep breath. He denies any nausea or vomiting denies any diaphoresis. Denies any bowel movement changes or urinary symptoms. Denies any cough fever or chills or sweats. Patient evaluated by cardiology. They felt that chest pain was likely musculoskeletal from patient moving furniture. They recommended starting an NSAID. This was okayed by Dr. Salamanca service. Dr. Salamanca had recommended no NSAIDs after patient had had a cervical fusion. But at this time Dr. Salamanca did okay to restart consulted. Patient doesn't like Aleve [id number]. Recommend that he takes one Aleve twice a day 1 week. And then after that take as needed. Patient is medically stable for discharge. Please refer to chart for any further details. Patient Condition at Discharge: Stable Plan - Discharge Summary New Discharge Prescriptions: New Naproxen Sodium [Aleve] 220 mg PO Q12HR #14 tab Continue Cetirizine HCl [Zyrtec] 10 mg PO DAILY PRN PRN Reason: seasonal allergies Acetaminophen Tab [Tylenol] 650 mg PO Q4H PRN PRN Reason: Pain Simvastatin [Zocor] 20 mg PO HS Multivit-Min/FA/Lycopen/Lutein [[place] Silver Tablet] 1 tab PO DAILY Losartan [Cozaar] 50 mg PO DAILY Baclofen [Lioresal] 10 mg PO BID PRN PRN Reason: Muscle Spasm Aspirin [Adult Low Dose Aspirin EC] 81 mg PO DAILY HYDROcodone/APAP 5-325MG [[place] 5-325] 1 tab PO Q8H PRN PRN Reason: Pain Discharge Medication List Acetaminophen Tab [Tylenol] 650 mg PO Q4H PRN 10/27/16 [History] Aspirin [Adult Low Dose Aspirin EC] 81 mg PO DAILY 10/27/16 [History] Baclofen [Lioresal] 10 mg PO BID PRN 10/27/16 [History] Cetirizine HCl [Zyrtec] 10 mg PO DAILY PRN 10/27/16 [History] Losartan [Cozaar] 50 mg PO DAILY 10/27/16 [History] Multivit-Min/FA/Lycopen/Lutein [[place] Silver Tablet] 1 tab PO DAILY 10/27/16 [ History] Simvastatin [Zocor] 20 mg PO HS 10/27/16 [History] HYDROcodone/APAP 5-325MG [[place] 5-325] 1 tab PO Q8H PRN 12/11/16 [History] Naproxen Sodium [Aleve] 220 mg PO Q12HR #14 tab 12/11/16 [Rx] Follow up Appointment(s)/Referral(s): Em Em MD [Primary Care Provider] - 1 Week Rosendo Barajas DO [Doctor of Osteopathic Medicine] - 1 Week Activity/Diet/Wound Care/Special Instructions: diet: cardiac Activity: as tolerated Discharge Disposition: HOME SELF-CARE
[2016-12-11 13:47] LABS: Creatine Kinase MB 1.5 ng/mL (0.0-2.4); Troponin I <0.012 ng/mL (0.000-0.034)
[2016-12-11] MEDS ORDERED: HEPARIN SODIUM,PORCINE 5,000 UNIT/ML 1 ML VIAL SQ SCH (21:00)
[2016-12-11] MEDS ORDERED: ATORVASTATIN 10 MG TAB PO SCH (21:00)
[2016-12-12] MEDS ORDERED: ASPIRIN 325 MG TAB PO SCH (09:00)
[2016-12-12] MEDS ORDERED: FAMOTIDINE 20 MG TAB PO SCH (09:00)
[2016-12-12] MEDS ORDERED: LOSARTAN 50 MG TAB PO SCH (09:00)
[2016-12-12] MEDS ORDERED: MULTIVITAMINS, THERA 1 EACH TAB PO SCH (12:00)
== END 2016-12-11 15:00 | disposition home or self-care (01) ==
LOC: EC 06:36 → 3OBS 09:26
PROVIDERS: ADMIT Internal Medicine; ATTEND Internal Medicine
DX: R07.89 Other chest pain (principal); J98.11 Atelectasis; I10 Essential (primary) hypertension; E78.5 Hyperlipidemia, unspecified; I44.0 Atrioventricular block, first degree; I71.2 Thoracic aortic aneurysm, without rupture; I25.10 Atherosclerotic heart disease of native coronary artery without angina pectoris; G47.33 Obstructive sleep apnea (adult) (pediatric); N40.0 Benign prostatic hyperplasia without lower urinary tract symptoms; I71.4 Abdominal aortic aneurysm, without rupture; Z79.899 Other long term (current) drug therapy; Z79.82 Long term (current) use of aspirin; Z88.5 Allergy status to narcotic agent; Z82.49 Family history of ischemic heart disease and other diseases of the circulatory system; Z87.891 Personal history of nicotine dependence; Z98.1 Arthrodesis status
CPT/HCPCS: 99285; 36415; 93005; 80053; 82550; 82553; 83735; 84484; 85025; 85610; 85730; 71020; 71275; G0378; Q9967; J1170

== ENCOUNTER → 2018-04-07 | Outpatient (CLI) | payer MEDICARE ==
--- NOTE | 2018-04-07 14:44 | US ---
EXAMINATION TYPE: US venous doppler duplex LE DATE OF EXAM: 04/07/2018 1:12 PM COMPARISON: LOWER EXTREMITY VENOUS INSUFFICIENCY SIDE PERFORMED: bilateral 1) Color flow is present and patency is documented in the following vessels. No DVT or SVT is noted . EIV Common Femoral Vein Deep Femoral Vein Femoral Vein Popliteal Vein Proximal Calf Veins Greater Saph Vein Upper Small Saph Vein 2) There is venous reflux noted at the following venous levels: No reflux visualized IMPRESSION: No evidence for reflux at this time. No evidence for DVT.
== END | disposition home or self-care (01) ==
LOC: RADUSWWP 13:10
PROVIDERS: ATTEND Thoracic Surgery (Cardiothoracic Vascular Surgery)
DX: S91.302A Unspecified open wound, left foot, initial encounter (principal); M79.605 Pain in left leg
CPT/HCPCS: 93923; 93970

== ENCOUNTER 2018-04-11 11:21 | Inpatient (IN) | payer MEDICARE ==
--- NOTE | 2018-04-11 11:39 | ED ---
General Adult HPI - General Chief complaint: Skin/Abscess/Foreign Body Stated complaint: wound on foot Time Seen by Provider: 04/11/18 11:37 Source: patient, RN notes reviewed Mode of arrival: ambulatory Limitations: no limitations - History of Present Illness Initial comments: 77-year-old male with a past medical history of coronary artery disease, hyperlipidemia presents to the emergency department for a chief complaint of infection of the left foot. Patient states this has been exacerbated in the past one day. He states he had a bunionectomy performed 3 months ago. He states that since that time he has had difficulty wound healing and has been seeing wound care. He states he has a chronic wound to the dorsal first mtp joint. He states that he has been on multiple rounds of oral antibiotics. He states the last round of antibiotics was 2 weeks ago when he had Keflex and Bactrim. He states that the erythema did improve at that time but then worsened again today. He states he has pain on the dorsal and plantar aspect of the foot. He states Dr. Ivey has been seeing him for this issue and is concerned he may be rejecting the metal pins from his surgery. He denies any fevers or chills. He denies any history of diabetes. Patient is currently being evaluated for PAD. Patient has no other complaints at this time including shortness of breath, chest pain, abdominal pain, nausea or vomiting, headache, or visual changes. - Related Data Home Medications Medication Instructions Recorded Confirmed Acetaminophen Tab [Tylenol] 650 mg PO Q4H PRN 10/27/16 04/06/18 Aspirin [Adult Low Dose Aspirin EC] 81 mg PO DAILY 10/27/16 04/06/18 Cetirizine HCl [Zyrtec] 10 mg PO DAILY PRN 10/27/16 04/06/18 Losartan [Cozaar] 50 mg PO DAILY 10/27/16 04/06/18 Simvastatin [Zocor] 20 mg PO HS 10/27/16 04/06/18 Previous Rx's Medication Instructions Recorded Naproxen Sodium [Aleve] 220 mg PO Q12HR #14 tab 12/11/16 Allergies Allergy/AdvReac Type Severity Reaction Status Date / Time morphine Allergy Severe Itching Verified 04/11/18 11:26 hydrocodone [From Vicodin] Allergy Itching Verified 04/11/18 11:26 Review of Systems ROS Statement: Those systems with pertinent positive or pertinent negative responses have been documented in the HPI. ROS Other: All systems not noted in ROS Statement are negative. Past Medical History Past Medical History: Coronary Artery Disease (CAD), Hyperlipidemia, Prostate Disorder, Sleep Apnea/CPAP/BIPAP Additional Past Medical History / Comment(s): Aortic aneurysm (small), ALEJANDRA with CPAP, muscle spasms, benign polyps, BPH, possible nephrolithiaisis, sinus problems History of Any Multi-Drug Resistant Organisms: None Reported Past Surgical History: Appendectomy, Back Surgery, Heart Catheterization, Joint Replacement, Orthopedic Surgery, Tonsillectomy Additional Past Surgical History / Comment(s): lumbar and cervical fusions with last cervical fusion 11/05/16, left knee replaced, guera rotator cuff, guera cataract sx with implants, cardiac cath-treated medically, EGD/colonoscopy/ polypectomies, R great toe with pin, bilateral tennis elbow surgery, left foot surgery 01/28/18 Past Anesthesia/Blood Transfusion Reactions: No Reported Reaction Past Psychological History: No Psychological Hx Reported Smoking Status: Former smoker Past Alcohol Use History: Occasional Past Drug Use History: None Reported - Past Family History Mother Family Medical History: Cancer Additional Family Medical History / Comment(s): Mother of colon cancer at the age of 75yrs. Father Family Medical History: Chest Pain / Angina, Respiratory Disorder Additional Family Medical History / Comment(s): Father had black lung (worked in [employer]). He at the age of 94 yrs. General Exam Limitations: no limitations General appearance: alert, in no apparent distress Head exam: Present: atraumatic, normocephalic, normal inspection Eye exam: Present: normal appearance, PERRL, EOMI. Absent: scleral icterus, conjunctival injection, periorbital swelling ENT exam: Present: normal exam, mucous membranes moist Neck exam: Present: normal inspection, full ROM. Absent: tenderness, meningismus, lymphadenopathy Respiratory exam: Present: normal lung sounds bilaterally. Absent: respiratory distress, wheezes, rales, rhonchi, stridor Cardiovascular Exam: Present: regular rate, normal rhythm, normal heart sounds. Absent: systolic murmur, diastolic murmur, rubs, gallop, clicks Extremities exam: Present: full ROM (Full range of motion of the left lower extremity), tenderness (tenderness to the distal left foot), normal capillary refill (Capillary refill less than 2 seconds and DP pulse 2+ in the left lower extremity), other (Patient has erythema extending from the distal first left toe to the mid foot. Patient does appear to have a chronic wound over the dorsal first MTP joint, it does appear to be healing.) Course Vital Signs 04/11/18 11:24 Temperature 98.4 F Pulse Rate 66 Respiratory 16 Rate Blood Pressure 162/80 O2 Sat by Pulse 98 Oximetry Medical Decision Making - Medical Decision Making 77-year-old male presents to the emergency department for a chief complaint of cellulitis and chronic wound over the left first MTP joint. Patient states he had a bunionectomy 3 months ago and has been on oral antibiotics 3 times since then. He states they do help somewhat but the infection continues to recur. He denies fevers or chills. Patient states today the erythema is worsened. On exam patient does have what is noted to be a healing chronic wound over the dorsal first MTP joint of the left great toe. He also has an erythema consistent with a cellulitic infection extending into the forefoot. CBC and CMP are unremarkable. Lactate 1.0. CRP is 59. X-ray cannot exclude osteomyelitis of the first great toe. Patient was started on Rocephin and vancomycin here in the emergency department. Blood cultures were drawn prior to this. Patient will be admitted for IV antibiotics at this time. - Lab Data Result diagrams: 04/11/18 12:40 04/11/18 12:40 Lab Results 04/11/18 04/11/18 04/11/18 Range/Units 12:40 12:40 12:40 WBC 9.1 (3.8-10.6) k/uL RBC 4.27 L (4.30-5.90) m/uL Hgb 12.3 L (13.0-17.5) gm/dL Hct 37.0 L (39.0-53.0) % MCV 86.7 (80.0-100.0) fL MCH 28.7 (25.0-35.0) pg MCHC 33.1 (31.0-37.0) g/dL RDW 14.1 (11.5-15.5) % Plt Count 138 L (150-450) k/uL Neutrophils % 70 % Lymphocytes % 20 % Monocytes % 6 % Eosinophils % 2 % Basophils % 1 % Neutrophils # 6.3 (1.3-7.7) k/uL Lymphocytes # 1.9 (1.0-4.8) k/uL Monocytes # 0.6 (0-1.0) k/uL Eosinophils # 0.2 (0-0.7) k/uL Basophils # 0.0 (0-0.2) k/uL Sodium 137 (137-145) mmol/L Potassium 4.7 (3.5-5.1) mmol/L Chloride 105 (98-107) mmol/L Carbon Dioxide 23 (22-30) mmol/L Anion Gap 9 mmol/L BUN 25 H (9-20) mg/dL Creatinine 0.93 (0.66-1.25) mg/dL Est GFR (CKD-EPI)AfAm >90 (>60 ml/min/1.73 sqM) Est GFR (CKD-EPI)NonAf 79 (>60 ml/min/1.73 sqM) Glucose 97 (74-99) mg/dL Plasma Lactic Acid Valeriy 1.0 (0.7-2.0) mmol/L Calcium 9.4 (8.4-10.2) mg/dL Total Bilirubin 0.7 (0.2-1.3) mg/dL AST 27 (17-59) U/L ALT 24 (21-72) U/L Alkaline Phosphatase 44 (38-126) U/L C-Reactive Protein 59.4 H (<10.0) mg/L Total Protein 7.4 (6.3-8.2) g/dL Albumin 4.0 (3.5-5.0) g/dL Disposition Clinical Impression: Chronic wound of extremity, Cellulitis, Osteomyelitis Disposition: ADMITTED IP TO THIS [facility] Condition: Poor Referrals: Em Em MD [Primary Care Provider] - 1-2 days
[2018-04-11] MEDS ORDERED: SODIUM CHLORIDE 0.9% 500 ML 500 ML IV STA (12:07)
[2018-04-11 13:04] LABS: Basophils % (A) 1 %; Eosinophils # (A) 0.2 k/uL (0-0.7); Eosinophils % (A) 2 %; HGB 12.3 gm/dL (13.0-17.5); Lymphocytes # (A) 1.9 k/uL (1.0-4.8); Lymphocytes % (A) 20 %; MCH 28.7 pg (25.0-35.0); MCHC 33.1 g/dL (31.0-37.0); MCV 86.7 fL (80.0-100.0); Mean Platelet Volume 7.8; Monocytes # (A) 0.6 k/uL (0-1.0); Monocytes % (A) 6 %; Neutrophils # (A) 6.3 k/uL (1.3-7.7); Neutrophils % (A) 70 %; Platelet Count 138 k/uL (150-450); RBC 4.27 m/uL (4.30-5.90); RDW 14.1 % (11.5-15.5); WBC 9.1 k/uL (3.8-10.6)
--- NOTE | 2018-04-11 13:23 | XR ---
EXAMINATION TYPE: XR foot complete LT , 3 VIEWS DATE OF EXAM ORDERED: 04/11/2018 HISTORY: Pain. COMPARISON: None. FINDINGS: Previous bunionectomy. There is been sideplate and screw fixation and arthrodesis of the first MTP alee int. There is loss of cortical distinctness in the distal first metatarsal. There are hammertoe defor mities of the second through fifth digits. There is a plantar calcaneal spur. IMPRESSION: I CANNOT EXCLUDE OSTEOMYELITIS OF THE DISTAL FIRST METATARSAL.
[2018-04-11 13:25] LABS: Anion Gap 9 mmol/L; Blood Urea Nitrogen 25 mg/dL (9-20); C Reactive Protein 59.4 mg/L (<10.0); Calcium 9.4 mg/dL (8.4-10.2); Carbon Dioxide 23 mmol/L (22-30); Chloride 105 mmol/L (98-107); Glucose 97 mg/dL (74-99); Sodium 137 mmol/L (137-145); Total Bilirubin 0.7 mg/dL (0.2-1.3); Total Protein 7.4 g/dL (6.3-8.2)
[2018-04-11 13:29] LABS: ALT 24 U/L (21-72); AST 27 U/L (17-59); Alkaline Phosphatase 44 U/L (38-126); Potassium 4.7 mmol/L (3.5-5.1)
[2018-04-11] MEDS ORDERED: VANCOMYCIN IV PER PHARMACY 1 EACH MISC MISCELLANE PRN (13:54)
[2018-04-11] MEDS ORDERED: NALOXONE 0.4 MG/ML 1 ML VIAL IV PRN (14:01)
[2018-04-11] MEDS ORDERED: ACETAMINOPHEN TAB 500 MG TAB PO PRN (14:07)
[2018-04-11] MEDS ORDERED: VANCOMYCIN 2,000 MG in SODIUM CHLORIDE 0.9% 500 ML 500 ML IVPB ONE (14:30)
[2018-04-11] MEDS: SODIUM CHLORIDE 0.9% 1,000 ML IV SCH (15:02)
[2018-04-11 15:59] VITALS: BMI 30.9
[2018-04-11] MEDS ORDERED: ACETAMINOPHEN TAB 325 MG TAB PO PRN (19:07)
[2018-04-11] MEDS: HYDROcodone/APAP 5-325MG 1 EACH TAB PO SCH (21:49)
[2018-04-11] MEDS: ATORVASTATIN 10 MG TAB PO SCH (21:49)
[2018-04-11] MEDS: NAPROXEN 250 MG TAB PO SCH (21:49)
[2018-04-12] MEDS: SODIUM CHLORIDE 0.9% 1,000 ML IV SCH ×3 (00:17→19:59)
[2018-04-12] MEDS: ceFAZolin IN SWFI 2 GM/20 ML SYRINGE IVP SCH ×4 (00:18→23:55)
[2018-04-12] MEDS: VANCOMYCIN 2,000 MG in SODIUM CHLORIDE 0.9% 500 ML 500 ML IVPB SCH ×3 (00:18→23:55)
[2018-04-12] MEDS ORDERED: COLLAGENASE 250 UNIT/GM OINTMENT 30 GM TUBE TOPICAL SCH (09:00)
[2018-04-12 09:06] LABS: Basophils % (A) 0 %; Eosinophils # (A) 0.2 k/uL (0-0.7); Eosinophils % (A) 4 %; HCT 34.1 % (39.0-53.0); HGB 11.2 gm/dL (13.0-17.5); Lymphocytes # (A) 1.3 k/uL (1.0-4.8); Lymphocytes % (A) 21 %; MCH 28.5 pg (25.0-35.0); MCHC 32.8 g/dL (31.0-37.0); MCV 86.7 fL (80.0-100.0); Mean Platelet Volume 7.9; Monocytes # (A) 0.3 k/uL (0-1.0); Monocytes % (A) 5 %; Neutrophils # (A) 4.4 k/uL (1.3-7.7); Neutrophils % (A) 70 %; Platelet Count 123 k/uL (150-450); RBC 3.94 m/uL (4.30-5.90); RDW 14.2 % (11.5-15.5); WBC 6.4 k/uL (3.8-10.6)
[2018-04-12] MEDS: LOSARTAN 50 MG TAB PO SCH (09:20)
[2018-04-12] MEDS: ASPIRIN 81 MG PO SCH (09:20)
[2018-04-12] MEDS: NAPROXEN 250 MG TAB PO SCH ×2 (09:20→21:25)
[2018-04-12] MEDS: HYDROcodone/APAP 5-325MG 1 EACH TAB PO SCH ×4 (09:22→23:09)
[2018-04-12 09:24] LABS: Albumin 3.3 g/dL (3.5-5.0); Calcium 8.9 mg/dL (8.4-10.2); Potassium 3.9 mmol/L (3.5-5.1); Total Bilirubin 0.5 mg/dL (0.2-1.3); Total Protein 6.2 g/dL (6.3-8.2)
--- NOTE | 2018-04-12 10:49 | P.HPIM ---
History of Present Illness H&P Date: 04/12/18 Chief Complaint: Chronic wound cellulitis This is a 77-year-old male patient of Dr. De La Cruz. Patient presented to the emergency room with complaints of left greater toe pain and swelling. Patient states in January of this year he had a bunion surgery with Dr. Villa to that left toe and patient states that ever since surgery he's had multiple issues with healing and required antibiotics. Patient recently referred to Dr. Silverman and underwent debridement of left toe. Patient states Thursday morning he woke up with increased pain to left foot. Patient noticed there was increased redness and swelling. Patient also reports he's had intermittent chills over the past week denies fever. Patient was brought into emergency room by his . Patient has a known past medical history 1 artery disease, hyperlipidemia , prostate disorder, sleep apnea, small aortic aneurysm, sleep apnea, BPH, multiple joint replacements, Lumbar and cervical fusions, and bilateral tennis elbow surgery repair. Foot x-ray completed showing a cannot exclude active osteomyelitis of the distal first metatarsal. Dr. Silverman from infectious disease have been consulted. Patient has been started on Rocephin and vancomycin for IV antibiotics. At this time patient denies chest pain or shortness of breath. Patient denies nausea vomiting or diarrhea. Patient denies any urinary burning or frequency. Review of Systems Please refer to HPI otherwise unremarkable Past Medical History Past Medical History: Coronary Artery Disease (CAD), Hyperlipidemia, Prostate Disorder, Sleep Apnea/CPAP/BIPAP Additional Past Medical History / Comment(s): Aortic aneurysm (small), ALEJANDRA with CPAP, muscle spasms, benign polyps, BPH, possible nephrolithiaisis, sinus problems History of Any Multi-Drug Resistant Organisms: None Reported Past Surgical History: Appendectomy, Back Surgery, Heart Catheterization, Joint Replacement, Orthopedic Surgery, Tonsillectomy Additional Past Surgical History / Comment(s): lumbar and cervical fusions with last cervical fusion 11/05/16, left knee replaced, guera rotator cuff, guera cataract sx with implants, cardiac cath-treated medically, EGD/colonoscopy/ polypectomies, R great toe with pin, bilateral tennis elbow surgery, left foot bunionectomy 01/28/18 Past Anesthesia/Blood Transfusion Reactions: No Reported Reaction Past Psychological History: No Psychological Hx Reported Additional Psychological History / Comment(s): Pt resides with his spouse. He is independent. Smoking Status: Former smoker Past Alcohol Use History: Occasional Additional Past Alcohol Use History / Comment(s): Pt started smoking in his teens and quit in 1986. Past Drug Use History: None Reported - Past Family History Mother Family Medical History: Cancer Additional Family Medical History / Comment(s): Mother of colon cancer at the age of 75yrs. Father Family Medical History: Chest Pain / Angina, Respiratory Disorder Additional Family Medical History / Comment(s): Father had black lung (worked in [employer]). He at the age of 94 yrs. Medications and Allergies Home Medications Medication Instructions Recorded Confirmed Type Acetaminophen Tab [Tylenol] 650 mg PO Q4H PRN 10/27/16 04/11/18 History Aspirin [Adult Low Dose Aspirin EC] 81 mg PO DAILY 10/27/16 04/11/18 History Losartan [Cozaar] 50 mg PO DAILY 10/27/16 04/11/18 History Simvastatin [Zocor] 20 mg PO HS 10/27/16 04/11/18 History Naproxen Sodium [Aleve] 220 mg PO Q12HR #14 tab 12/11/16 04/11/18 Rx Collagenase [Santyl] 1 applicate TOPICAL DAILY 04/11/18 04/11/18 History HYDROcodone/APAP 5-325MG [[place] 1 tab PO QID 04/11/18 04/11/18 History 5-325] Allergies Allergy/AdvReac Type Severity Reaction Status Date / Time morphine Allergy Severe Itching Verified 04/11/18 15:33 hydrocodone [From Vicodin] Allergy Itching Verified 04/11/18 15:33 Physical Exam Vitals: Vital Signs Temp Pulse Pulse Resp BP BP Pulse Ox 04/12/18 04:23 98.1 F 70 16 146/76 96 04/11/18 20:30 97.7 F 73 16 152/72 97 04/11/18 16:05 98.0 F 80 16 169/80 97 04/11/18 15:07 97.7 F 63 18 132/95 97 04/11/18 11:24 98.4 F 66 16 162/80 98 Intake and Output 04/11/18 04/12/18 04/12/18 22:59 06:59 14:59 Intake Total 1150 Balance 1150 Intake: Intake, IV Titration 1150 Amount Sodium Chloride 0.9% 1, 650 000 ml @ 75 mls/hr IV . [id number] [facility] Rx#:[id number] Vancomycin 2,000 mg In 500 Sodium Chloride 0.9% 500 ml 500 ml @ 167 mls/hr IVPB Q12H [facility] Rx#: [id number] Other: Voiding Method Toilet Toilet Toilet # Voids 1 1 Weight 106.594 kg Head normocephalic Neck supple Lungs clear to auscultation bilaterally no wheezing or crackles Heart regular rate and rhythm S1-S2, no rub or gallop Abdomen is soft nontender nondistended positive bowel sounds no hepatosplenomegaly Extremities no edema. Left greater toe edematous and reddened. Incision site noted minimal drainage. Neuro alert and orientated to 3 Results CBC & Chem 7: 04/12/18 08:49 04/12/18 08:49 Labs: Abnormal Lab Results - Last 24 Hours (Table) 04/11/18 04/11/18 04/12/18 Range/Units 12:40 12:40 08:49 RBC 4.27 L 3.94 L (4.30-5.90) m/uL Hgb 12.3 L 11.2 L (13.0-17.5) gm/dL Hct 37.0 L 34.1 L (39.0-53.0) % Plt Count 138 L 123 L (150-450) k/uL Chloride (98-107) mmol/L BUN 25 H (9-20) mg/dL Glucose (74-99) mg/dL ALT (21-72) U/L C-Reactive Protein 59.4 H (<10.0) mg/L Total Protein (6.3-8.2) g/dL Albumin (3.5-5.0) g/dL 04/12/18 Range/Units 08:49 RBC (4.30-5.90) m/uL Hgb (13.0-17.5) gm/dL Hct (39.0-53.0) % Plt Count (150-450) k/uL Chloride 108 H (98-107) mmol/L BUN (9-20) mg/dL Glucose 117 H (74-99) mg/dL ALT 20 L (21-72) U/L C-Reactive Protein (<10.0) mg/L Total Protein 6.2 L (6.3-8.2) g/dL Albumin 3.3 L (3.5-5.0) g/dL Thrombosis Risk Factor Assmnt - Choose All That Apply Each Factor Represents 1 point: Obesity (BMI >25) Each Risk Factor Represents 3 Points: Age 75 years or older Thrombosis Risk Factor Assessment Total Risk Factor Score: 4 Thrombosis Risk Factor Assessment Level: Moderate Risk Assessment and Plan Assessment: 1. Left greater toe cellulitis. Status post bunion removal in January 2018. Foot x-ray completed, showing an impression that cannot exclude ostium mellitus of the distal first metatarsal. Patient started on vancomycin and Kefzol for IV antibiotics. Dr. Silverman consulted for ID. blood culture has been ordered 2. Bunion removal in January 2018. Patient has had multiple debridements of the left toe since initial surgery. 3. History of coronary artery disease. Medically managed 4. History of hyperlipidemia 5. History of sleep apnea with CPAP machine 6. History of BPH 7. History of small aortic aneurysm that is managed by Dr. Treviño 8. History of cervical fusions 9. History of osteoarthritis with multiple joint replacements DVT prophylaxis Lovenox GI prophylaxis Protonix Time with Patient: Greater than 30 (Greater than 60% of the total time spent in counseling and coordination of care. I performed an examination of the patient and discussed their management with the Nurse Practitioner. I have reviewed the Nurse Practitioner's notes and agree with the documented findings and plan of care)
--- NOTE | 2018-04-12 11:52 | P.CONS ---
History of Present Illness - Reason for Consult Consult date: 04/12/18 Osteomyelitis - History of Present Illness This is a 77-year-old male patient who [facility] under the care of Dr. Barajas and Mark Bergman NP, for a nonhealing surgical wound on the left foot. Patient gives history of having bunion surgery in January [address] Villa. He initially went to see him for bone spur at the left ankle and had a cortisone shot for that. Subsequently scheduled for bunion surgery. He has had nonhealing of the wound and started at the wound healing center on March 30. His most recent visit was on April 06 which time a debridement was done to the wound on the left first MTP joint. He was scheduled for an outpatient venous duplex which was negative for DVT. Arterial studies have been done and results are pending. Patient states that on Thursday, he sat for several hours playing poker and when he woke up on Thursday he had increasing redness and swelling to the left foot. He came into [facility] emergency center for evaluation. He has been afebrile with normal white count of 6.4, creatinine 1.01. Albumin 3.3 and recent pre-albumin was 27. He had a sed rate done on March 30 which was 17 and C-reactive protein was less than 5. Repeat C- reactive protein on this admission is 59.4.. Patient has been started on Kefzol and vancomycin. Local wound care as Santyl. Recent wound culture in February was positive for MSSA. Patient also gives history of duck hunting about 3 weeks ago and was wearing chest high waders and ended up with water into his waders on the right side only. He is sure that there was no contamination on his left foot. He denies any injury to his foot Review of Systems All systems: negative Constitutional: Reports chills, Denies anorexia, Denies fatigue, Denies fever, Denies lethargy, Denies malaise, Denies poor appetite, Denies sweats, Denies weakness Eyes: denies blurred vision, denies pain Ears, nose, mouth and throat: Denies dental pain, Denies dysphagia, Denies headache, Denies mouth pain, Denies sore throat, Denies vertigo Cardiovascular: Denies chest pain, Denies decreased exercise tolerance, Denies dyspnea on exertion, Denies edema, Denies leg edema, Denies lightheadedness, Denies shortness of breath, Denies syncope Respiratory: Denies cough, Denies cough with sputum, Denies dyspnea, Denies excessive sputum, Denies hemoptysis, Denies home oxygen, Denies wheezing Gastrointestinal: Denies abdominal pain, Denies diarrhea, Denies loss of appetite, Denies nausea, Denies vomiting Genitourinary: Denies dysuria, Denies urinary retention Musculoskeletal: Denies frequent falls, Denies gait dysfunction, Denies myalgias Integumentary: Reports color changes, Reports darkening of skin, Reports wounds , Denies pruritus, Denies rash Neurological: Denies change in mentation, Denies confusion, Denies numbness, Denies weakness Psychiatric: Denies anxiety, Denies depression Endocrine: Denies fatigue, Denies weight change Past Medical History Past Medical History: Coronary Artery Disease (CAD), Hyperlipidemia, Prostate Disorder, Sleep Apnea/CPAP/BIPAP Additional Past Medical History / Comment(s): Aortic aneurysm (small), ALEJANDRA with CPAP, muscle spasms, benign polyps, BPH, possible nephrolithiaisis, sinus problems History of Any Multi-Drug Resistant Organisms: None Reported Past Surgical History: Appendectomy, Back Surgery, Heart Catheterization, Joint Replacement, Orthopedic Surgery, Tonsillectomy Additional Past Surgical History / Comment(s): lumbar and cervical fusions with last cervical fusion 11/05/16, left knee replaced, guera rotator cuff, guera cataract sx with implants, cardiac cath-treated medically, EGD/colonoscopy/ polypectomies, R great toe with pin, bilateral tennis elbow surgery, left foot bunionectomy 01/28/18 Past Anesthesia/Blood Transfusion Reactions: No Reported Reaction Past Psychological History: No Psychological Hx Reported Additional Psychological History / Comment(s): Pt resides with his spouse. He is independent. Smoking Status: Former smoker Past Alcohol Use History: Occasional Additional Past Alcohol Use History / Comment(s): Pt started smoking in his teens and quit in 1986. No medical marijuana or marijuana, street drug or alcohol use. He lives at home with his . No animals in the home. He does moya, fish and plays golf. He is retired from his own excavating business and had worked in [employer]. Past Drug Use History: None Reported - Past Family History Mother Family Medical History: Cancer Additional Family Medical History / Comment(s): Mother of colon cancer at the age of 75yrs. Father Family Medical History: Chest Pain / Angina, Respiratory Disorder Additional Family Medical History / Comment(s): Father had black lung (worked in coal [employer]). He at the age of 94 yrs. Medications and Allergies Home Medications Medication Instructions Recorded Confirmed Type Acetaminophen Tab [Tylenol] 650 mg PO Q4H PRN 10/27/16 04/11/18 History Aspirin [Adult Low Dose Aspirin EC] 81 mg PO DAILY 10/27/16 04/11/18 History Losartan [Cozaar] 50 mg PO DAILY 10/27/16 04/11/18 History Simvastatin [Zocor] 20 mg PO HS 10/27/16 04/11/18 History Naproxen Sodium [Aleve] 220 mg PO Q12HR #14 tab 12/11/16 04/11/18 Rx Collagenase [Santyl] 1 applicate TOPICAL DAILY 04/11/18 04/11/18 History HYDROcodone/APAP 5-325MG [[place] 1 tab PO QID 04/11/18 04/11/18 History 5-325] Allergies Allergy/AdvReac Type Severity Reaction Status Date / Time morphine Allergy Severe Itching Verified 04/11/18 15:33 hydrocodone [From Vicodin] Allergy Itching Verified 04/11/18 15:33 Physical Exam Vitals: Vital Signs Temp Pulse Pulse Resp BP BP Pulse Ox 04/12/18 04:23 98.1 F 70 16 146/76 96 04/11/18 20:30 97.7 F 73 16 152/72 97 04/11/18 16:05 98.0 F 80 16 169/80 97 04/11/18 15:07 97.7 F 63 18 132/95 97 04/11/18 11:24 98.4 F 66 16 162/80 98 Intake and Output 04/11/18 04/12/18 04/12/18 22:59 06:59 14:59 Intake Total 1150 Balance 1150 Intake: Intake, IV Titration 1150 Amount Sodium Chloride 0.9% 1, 650 000 ml @ 75 mls/hr IV . [id number] [facility] Rx#:[id number] Vancomycin 2,000 mg In 500 Sodium Chloride 0.9% 500 ml 500 ml @ 167 mls/hr IVPB Q12H [facility] Rx#: [id number] Other: Voiding Method Toilet Toilet Toilet # Voids 1 1 Weight 106.594 kg Gen: This is a 77-year-old male. He is sitting in a chair at the bedside with feet in a dependent position. HEENT: Head is atraumatic, normocephalic. Pupils equal, round. Sclerae is anicteric. Conjunctiva pink. Mucous members of the mouth are moist. Dentition is in good order. No lesions noted. NECK: Supple. No JVD. No lymphadenopathy. No thyromegaly. LUNGS: Clear to auscultation. No wheezes or rhonchi. No intercostal retractions. HEART: Regular rate and rhythm. No murmur. ABDOMEN: Soft. Bowel sounds are present. No masses. No tenderness. EXTREMITIES: There is erythema to the first toe and into the mid dorsal foot. Open wound over the MPJ with scant amount of drainage. Edema to the foot. Dorsalis pedis palpable bilaterally. No edema, wounds to the right foot. NEUROLOGICAL: Patient is awake, alert and oriented x3. Cranial nerves 2 through 12 are grossly intact. Results Results: Laboratory Results WBC 6.4 k/uL (3.8-10.6) 04/12/18 08:49 RBC 3.94 m/uL (4.30-5.90) L 04/12/18 08:49 Hgb 11.2 gm/dL (13.0-17.5) L 04/12/18 08:49 Hct 34.1 % (39.0-53.0) L 04/12/18 08:49 MCV 86.7 fL (80.0-100.0) 04/12/18 08:49 MCH 28.5 pg (25.0-35.0) 04/12/18 08:49 MCHC 32.8 g/dL (31.0-37.0) 04/12/18 08:49 RDW 14.2 % (11.5-15.5) 04/12/18 08:49 Plt Count 123 k/uL (150-450) L 04/12/18 08:49 Neutrophils % 70 % 04/12/18 08:49 Lymphocytes % 21 % 04/12/18 08:49 Monocytes % 5 % 04/12/18 08:49 Eosinophils % 4 % 04/12/18 08:49 Basophils % 0 % 04/12/18 08:49 Neutrophils # 4.4 k/uL (1.3-7.7) 04/12/18 08:49 Lymphocytes # 1.3 k/uL (1.0-4.8) 04/12/18 08:49 Monocytes # 0.3 k/uL (0-1.0) 04/12/18 08:49 Eosinophils # 0.2 k/uL (0-0.7) 04/12/18 08:49 Basophils # 0.0 k/uL (0-0.2) 04/12/18 08:49 Sodium 139 mmol/L (137-145) 04/12/18 08:49 Potassium 3.9 mmol/L (3.5-5.1) 04/12/18 08:49 Chloride 108 mmol/L (98-107) H 04/12/18 08:49 Carbon Dioxide 24 mmol/L (22-30) 04/12/18 08:49 Anion Gap 7 mmol/L 04/12/18 08:49 BUN 20 mg/dL (9-20) 04/12/18 08:49 Creatinine 1.01 mg/dL (0.66-1.25) 04/12/18 08:49 Est GFR (CKD-EPI)AfAm 83 (>60 ml/min/1.73 sqM) 04/12/18 08:49 Est GFR (CKD-EPI)NonAf 72 (>60 ml/min/1.73 sqM) 04/12/18 08:49 Glucose 117 mg/dL (74-99) H 04/12/18 08:49 Plasma Lactic Acid Valeriy 1.0 mmol/L (0.7-2.0) 04/11/18 12:40 Calcium 8.9 mg/dL (8.4-10.2) 04/12/18 08:49 Total Bilirubin 0.5 mg/dL (0.2-1.3) 04/12/18 08:49 AST 18 U/L (17-59) 04/12/18 08:49 ALT 20 U/L (21-72) L 04/12/18 08:49 Alkaline Phosphatase 44 U/L (38-126) 04/12/18 08:49 C-Reactive Protein 59.4 mg/L (<10.0) H 04/11/18 12:40 Total Protein 6.2 g/dL (6.3-8.2) L 04/12/18 08:49 Albumin 3.3 g/dL (3.5-5.0) L 04/12/18 08:49 CBC & Chem 7: 04/12/18 08:49 04/12/18 08:49 Labs: Abnormal Lab Results - Last 24 Hours (Table) 04/11/18 04/11/18 04/12/18 Range/Units 12:40 12:40 08:49 RBC 4.27 L 3.94 L (4.30-5.90) m/uL Hgb 12.3 L 11.2 L (13.0-17.5) gm/dL Hct 37.0 L 34.1 L (39.0-53.0) % Plt Count 138 L 123 L (150-450) k/uL Chloride (98-107) mmol/L BUN 25 H (9-20) mg/dL Glucose (74-99) mg/dL ALT (21-72) U/L C-Reactive Protein 59.4 H (<10.0) mg/L Total Protein (6.3-8.2) g/dL Albumin (3.5-5.0) g/dL 04/12/18 Range/Units 08:49 RBC (4.30-5.90) m/uL Hgb (13.0-17.5) gm/dL Hct (39.0-53.0) % Plt Count (150-450) k/uL Chloride 108 H (98-107) mmol/L BUN (9-20) mg/dL Glucose 117 H (74-99) mg/dL ALT 20 L (21-72) U/L C-Reactive Protein (<10.0) mg/L Total Protein 6.2 L (6.3-8.2) g/dL Albumin 3.3 L (3.5-5.0) g/dL Assessment and Plan Plan: This is a 77-year-old male who had bunion surgery on January 28 currently has a pin in the first MPJ and open wound. X-ray is concerning for osteomyelitis. Bone scan will be ordered to further evaluate. Patient is currently on Vancomycin Which Will Be Continued. Further Recommendations As Patient Progresses. The above dictated assessment and findings were discussed with Dr. Silverman. The impression and plan of care have been directed as dictated. Aracelis Coleman nurse practitioner acting as scribe for Dr. Silverman.
[2018-04-12] MEDS: ATORVASTATIN 10 MG TAB PO SCH (21:25)
--- NOTE | 2018-04-12 22:58 | P.CON ---
Consult Note - . Consult date: 04/12/18 Assessment/Plan:: This is a 77-year-old male patient who is currently [facility] under the care of Dr. Barajas and Mark Bergman NP, for a nonhealing surgical wound on the left foot. Patient gives history of having bunion surgery in January [address] Villa. He initially went to see him for bone spur at the left ankle and had a cortisone shot for that. Subsequently scheduled for bunion surgery. He has had nonhealing of the wound and started at the wound healing center on March 30. His most recent visit was on April 06 which time a debridement was done to the wound on the left first MTP joint. He was scheduled for an outpatient venous duplex which was negative for DVT. Arterial studies have been done and results are pending. Patient states that on Thursday, he sat for several hours playing poker and when he woke up on Thursday he had increasing redness and swelling to the left foot. He came into [facility] emergency center for evaluation. He has been afebrile with normal white count of 6.4, creatinine 1.01. Albumin 3.3 and recent pre-albumin was 27. He had a sed rate done on March 30 which was 17 and C-reactive protein was less than 5. Repeat C- reactive protein on this admission is 59.4.. Patient has been started on Kefzol and vancomycin. Local wound care as Santyl. Recent wound culture in February was positive for MSSA. Patient also gives history of duck hunting about 3 weeks ago and was wearing chest high waders and ended up with water into his waders on the right side only. He is sure that there was no contamination on his left foot. He denies any injury to his foot. Please see the consult note is dictated by nurse practitioner Aracelis [place]. This pleasant gentleman is highly active and is very discouraged that the current cellulitis occurring which will get him off track for his deer hunting which is coming up just in a few days. He is a very discouraged by this difficulty. At this time evaluation of underlying deeper infection as requested and bone scan has been ordered given the hardware that is present MRI not likely to be helpful. Kefzol is added vancomycin with the potential history of MSSA infection. Current cultures are pending. Local wound care with Silvadene will be applied to the foot in a wrap she'll be utilized. Elevate while he is at rest. Patient likely will require an outpatient course of intravenous antibiotic therapy, he does not desire to be homebound and likely will be coming to the outpatient clinic for antimicrobial therapy. Findings on the bone scan will be communicated with the orthopedic foot and ankle surgeon as to the next course of action. We'll should his proteins are adequate and make sure he gets a multivitamin with his ongoing elevation. Would happy to follow him in the wound healing center after discharge. I agree with evaluation, assessment and plan as dictated by nurse practitioner Mrs. Aracelis Coleman.
[2018-04-13] MEDS: PANTOPRAZOLE 40 MG TABLET PO SCH (08:02)
[2018-04-13] MEDS: ASPIRIN 81 MG PO SCH (08:03)
[2018-04-13] MEDS: ENOXAPARIN 40 MG/0.4 ML SYRINGE SQ SCH (08:03)
[2018-04-13] MEDS: HYDROcodone/APAP 5-325MG 1 EACH TAB PO SCH ×4 (08:03→21:21)
[2018-04-13] MEDS: LOSARTAN 50 MG TAB PO SCH (08:05)
[2018-04-13] MEDS: NAPROXEN 250 MG TAB PO SCH ×2 (08:06→21:20)
[2018-04-13 09:18] LABS: Albumin 3.7 g/dL (3.5-5.0); Calcium 9.2 mg/dL (8.4-10.2); Potassium 4.3 mmol/L (3.5-5.1); Total Bilirubin 0.6 mg/dL (0.2-1.3)
[2018-04-13 09:23] LABS: Basophils % (A) 0 %; Eosinophils # (A) 0.4 k/uL (0-0.7); Eosinophils % (A) 5 %; HCT 36.1 % (39.0-53.0); HGB 11.5 gm/dL (13.0-17.5); Lymphocytes # (A) 1.4 k/uL (1.0-4.8); Lymphocytes % (A) 18 %; MCH 27.4 pg (25.0-35.0); MCHC 31.9 g/dL (31.0-37.0); Mean Platelet Volume 7.4; Monocytes # (A) 0.3 k/uL (0-1.0); Monocytes % (A) 4 %; Neutrophils # (A) 5.4 k/uL (1.3-7.7); Neutrophils % (A) 71 %; Platelet Count 152 k/uL (150-450); RDW 13.9 % (11.5-15.5); WBC 7.6 k/uL (3.8-10.6)
--- NOTE | 2018-04-13 09:34 | P.CNOR ---
History of Present Illness - [facility] Consult date: 04/13/18 Requesting physician: Sandip Villa Consult reason: other History of present illness: Patient is a 77-year-old male seen at bedside this morning in consultation for his left foot. He is s/p bunion correction with hardware implantation performed on 01/28/[address] Villa. He has struggled with some cellulitis for the past month and has been seen and treated by the wound care clinic. Patient presented to the emergency room 04/11/18 with increased complaints of left greater toe pain and swelling. Patient also reports he's had intermittent chills over the past week denies fever. Patient was brought into emergency room by his . Patient has a known past medical history 1 artery disease, hyperlipidemia, prostate disorder, sleep apnea, small aortic aneurysm, sleep apnea, BPH, multiple joint replacements, Lumbar and cervical fusions, and bilateral tennis elbow surgery repair. Foot x-ray completed showing a cannot exclude active osteomyelitis of the distal first metatarsal. Dr. Silverman from infectious disease have been consulted. Patient has been started on Rocephin and vancomycin for IV antibiotics. At this time patient denies chest pain or shortness of breath. Patient denies nausea vomiting or diarrhea. Patient denies any urinary burning or frequency. Review of Systems All systems: negative Constitutional: Denies chills, Denies fever Eyes: denies blurred vision, denies pain Ears, nose, mouth and throat: Denies headache, Denies sore throat Cardiovascular: Denies chest pain, Denies shortness of breath Respiratory: Denies cough Gastrointestinal: Denies abdominal pain, Denies diarrhea, Denies nausea, Denies vomiting Musculoskeletal: Denies myalgias Integumentary: Denies pruritus, Denies rash Neurological: Denies numbness, Denies weakness Psychiatric: Denies anxiety, Denies depression Endocrine: Denies fatigue, Denies weight change Past Medical History Past Medical History: Coronary Artery Disease (CAD), Hyperlipidemia, Prostate Disorder, Sleep Apnea/CPAP/BIPAP Additional Past Medical History / Comment(s): Aortic aneurysm (small), ALEJANDRA with CPAP, muscle spasms, benign polyps, BPH, possible nephrolithiaisis, sinus problems History of Any Multi-Drug Resistant Organisms: None Reported Past Surgical History: Appendectomy, Back Surgery, Heart Catheterization, Joint Replacement, Orthopedic Surgery, Tonsillectomy Additional Past Surgical History / Comment(s): lumbar and cervical fusions with last cervical fusion 11/05/16, left knee replaced, guera rotator cuff, guera cataract sx with implants, cardiac cath-treated medically, EGD/colonoscopy/ polypectomies, R great toe with pin, bilateral tennis elbow surgery, left foot bunionectomy 01/28/18 Past Anesthesia/Blood Transfusion Reactions: No Reported Reaction Past Psychological History: No Psychological Hx Reported Additional Psychological History / Comment(s): Pt resides with his spouse. He is independent. Smoking Status: Former smoker Past Alcohol Use History: Occasional Additional Past Alcohol Use History / Comment(s): Pt started smoking in his teens and quit in 1986. No medical marijuana or marijuana, street drug or alcohol use. He lives at home with his . No animals in the home. He does moya, fish and plays golf. He is retired from his own [employer] business and had worked in [employer]. Past Drug Use History: None Reported - Past Family History Mother Family Medical History: Cancer Additional Family Medical History / Comment(s): Mother of colon cancer at the age of 75yrs. Father Family Medical History: Chest Pain / Angina, Respiratory Disorder Additional Family Medical History / Comment(s): Father had black lung (worked in coal [employer]). He at the age of 94 yrs. Medications and Allergies Home Medications Medication Instructions Recorded Confirmed Type Acetaminophen Tab [Tylenol] 650 mg PO Q4H PRN 10/27/16 04/11/18 History Aspirin [Adult Low Dose Aspirin EC] 81 mg PO DAILY 10/27/16 04/11/18 History Losartan [Cozaar] 50 mg PO DAILY 10/27/16 04/11/18 History Simvastatin [Zocor] 20 mg PO HS 10/27/16 04/11/18 History Naproxen Sodium [Aleve] 220 mg PO Q12HR #14 tab 12/11/16 04/11/18 Rx Collagenase [Santyl] 1 applicate TOPICAL DAILY 04/11/18 04/11/18 History HYDROcodone/APAP 5-325MG [[place] 1 tab PO QID 04/11/18 04/11/18 History 5-325] Allergies Allergy/AdvReac Type Severity Reaction Status Date / Time morphine Allergy Severe Itching Verified 04/11/18 15:33 hydrocodone [From Vicodin] Allergy Itching Verified 04/11/18 15:33 Physical Examination Inspection shows diffuse erythema along the first ray/great toe and metatarsal. There is no active bleeding or drainage. There is an area at the proximal first metatarsal that is mildly fluctuant. It is tender throughout the first ray. Neurovascular status is intact with active ROM at the ankle, foot and toes. There is less than 2 sec cap refill present. 2+ DP pulse present. Sensation to light touch is intact throughout foot. Results - Labs Labs: Abnormal Lab Results - Last 24 Hours (Table) 04/12/18 04/13/18 Range/Units 08:49 08:29 Chloride 108 H (98-107) mmol/L Glucose 117 H 125 H (74-99) mg/dL ALT 20 L 19 L (21-72) U/L Total Protein 6.2 L (6.3-8.2) g/dL Albumin 3.3 L (3.5-5.0) g/dL Microbiology - Last 24 Hours (Table) 04/11/18 12:40 Blood Culture - Preliminary Blood No Growth after 24 hours H & H 04/11/18 04/12/18 Range/Units 12:40 08:49 Hgb 12.3 L 11.2 L (13.0-17.5) gm/dL Hct 37.0 L 34.1 L (39.0-53.0) % Result Diagrams: 04/12/18 08:49 04/13/18 08:29 - Diagnostic results Ankle/Foot x-ray: report reviewed, image reviewed (hardware intact. no gas in tissue ) Assessment and Plan (1) Cellulitis Narrative/Plan: Patient has been reviewed with Dr. Villa. He would like to discuss options with with Dr. Silverman. Continue pain management, wound care, IV antibiotics, elevation, and medical management. Will make recommendations accordingly. Current Visit: Yes Status: Acute Code(s): L03.90 - CELLULITIS, UNSPECIFIED SNOMED Code(s): 896742954 (2) Chronic wound of extremity Current Visit: Yes Status: Acute Code(s): SCN8494 - SNOMED Code(s): 707404311 (3) Non-healing surgical wound Current Visit: No Status: Acute Code(s): T81.89XA - OTH COMPLICATIONS OF PROCEDURES, NEC, INIT SNOMED Code(s): 207855648 Time with Patient: Less than 30
[2018-04-13] MEDS ORDERED: BISACODYL 10 MG SUPP RECTAL PRN (09:35)
[2018-04-13] MEDS ORDERED: MAGNESIUM HYDROXIDE 2,400 MG/10 ML CUP PO PRN (09:35)
[2018-04-13] MEDS: ceFAZolin IN SWFI 2 GM/20 ML SYRINGE IVP SCH ×2 (10:39→16:43)
[2018-04-13] MEDS ORDERED: VANCOMYCIN TROUGH DUE 1 EACH MISC MISCELLANE ONE (11:00)
--- NOTE | 2018-04-13 11:22 | P.PN ---
Subjective Progress Note Date: 04/13/18 This is a 77-year-old male patient of Dr. De La Cruz. Patient presented to the emergency room with complaints of left greater toe pain and swelling. Patient states in January of this year he had a bunion surgery with Dr. Villa to that left toe and patient states that ever since surgery he's had multiple issues with healing and required antibiotics. Patient recently referred to Dr. Silverman and underwent debridement of left toe. Patient states Thursday morning he woke up with increased pain to left foot. Patient noticed there was increased redness and swelling. Patient also reports he's had intermittent chills over the past week denies fever. Patient was brought into emergency room by his . Patient has a known past medical history 1 artery disease, hyperlipidemia , prostate disorder, sleep apnea, small aortic aneurysm, sleep apnea, BPH, multiple joint replacements, Lumbar and cervical fusions, and bilateral tennis elbow surgery repair. Foot x-ray completed showing a cannot exclude active osteomyelitis of the distal first metatarsal. Dr. Silverman from infectious disease have been consulted. Patient has been started on Rocephin and vancomycin for IV antibiotics. At this time patient denies chest pain or shortness of breath. Patient denies nausea vomiting or diarrhea. Patient denies any urinary burning or frequency. On 04/13/2018 patient is currently sitting up in chair. Patient is alert and oriented 3. Patient complains of occasional pain with activity to left foot. Time patient denies chest pain or shortness breath. Denies nausea vomiting or diarrhea. Patient denies any urinary burning or frequency Objective - Vital Signs Vital signs: Vital Signs Temp 98.2 F 04/13/18 05:00 Pulse 72 04/13/18 05:00 Resp 18 04/13/18 08:45 BP 144/70 04/13/18 05:00 Pulse Ox 94 L 04/13/18 05:00 Intake & Output 04/12/18 04/13/18 04/13/18 18:59 06:59 18:59 Intake Total 1700 1190 Balance 1700 1190 Weight 106.594 kg Intake: Intake, IV Titration 1100 Amount Sodium Chloride 0.9% 1, 600 000 ml @ 75 mls/hr IV . [id number] [facility] Rx#:[id number] Vancomycin 2,000 mg In 500 Sodium Chloride 0.9% 500 ml 500 ml @ 167 mls/hr IVPB Q12H [facility] Rx#: [id number] Oral 600 1190 Other: Voiding Method Toilet Toilet Toilet # Voids 2 2 - Exam Head normocephalic Neck supple Lungs clear to auscultation bilaterally no wheezing or crackles Heart regular rate and rhythm S1-S2, no rub or gallop Abdomen is soft nontender nondistended positive bowel sounds no hepatosplenomegaly Extremities no edema. Left greater toe edematous and reddened. Incision site noted minimal drainage. Neuro alert and orientated to 3 - Labs CBC & Chem 7: 04/13/18 08:29 04/13/18 08:29 Labs: Abnormal Lab Results - Last 24 Hours (Table) 04/13/18 04/13/18 Range/Units 08:29 08:29 RBC 4.20 L (4.30-5.90) m/uL Hgb 11.5 L (13.0-17.5) gm/dL Hct 36.1 L (39.0-53.0) % Glucose 125 H (74-99) mg/dL ALT 19 L (21-72) U/L Microbiology - Last 24 Hours (Table) 04/11/18 12:40 Blood Culture - Preliminary Blood No Growth after 24 hours Assessment and Plan Assessment: 1. Left greater toe cellulitis. Status post bunion removal in January 2018. Foot x-ray completed, showing an impression that cannot exclude ostium mellitus of the distal first metatarsal. Patient started on vancomycin and Kefzol for IV antibiotics. Dr. Silverman consulted for ID. blood culture has been ordered. 2. Bunion removal in January 2018. Patient has had multiple debridements of the left toe since initial surgery. Dr. Villa per surgical service is consulted. Planning to do further testing in regards to assess for bone involvement with infection 3. History of coronary artery disease. Medically managed 4. History of hyperlipidemia 5. History of sleep apnea with CPAP machine 6. History of BPH 7. History of small aortic aneurysm that is managed by Dr. Treviño 8. History of cervical fusions 9. History of osteoarthritis with multiple joint replacements DVT prophylaxis Lovenox GI prophylaxis Protonix I performed an examination of the patient and discussed their management with the Nurse Practitioner. I have reviewed the Nurse Practitioner's notes and agree with the documented findings and plan of care
[2018-04-13] MEDS: MULTIVITAMINS, THERA 1 EACH TAB PO SCH (12:33)
[2018-04-13] MEDS: VANCOMYCIN 2,000 MG in SODIUM CHLORIDE 0.9% 500 ML 500 ML IVPB SCH (12:33)
--- NOTE | 2018-04-13 12:39 | NM ---
EXAMINATION TYPE: NM bone 3 phase DATE OF EXAM: 04/13/2018 COMPARISON: Plain films 04/11/2018 HISTORY: Left metatarsal phalangeal joint abnormality Triple phase bone scintigraphy was performed following the injection of 24.0 mCi Tc 99m MDP. Immedia te images and 3.5 hours post injection images acquired. FINDINGS: Blood flow: There is increased radiotracer accumulation over the medial mid and distal left foot. Blood pool: There is increased radiotracer accumulation in the left midfoot and left first metatarsop halangeal joint space. Static images: There is increased radiotracer accumulation at the left first metatarsophalangeal join t space. Some focal radiotracer accumulation is in the region of the first or second metatarsal of th e right foot. Mild increased uptake is near the distal portion right great toe. IMPRESSION: 1. Increased blood flow, blood pool, and static image signal at the first left metatarsophalangeal alee int space which correlates with the area of a wound. Underlying osteomyelitis at the joint should be considered. Given some increased signal towards the more proximal metatarsal of the left foot, infect ion along the plate and screws is not excluded.
--- NOTE | 2018-04-13 13:04 | CDI ---
Last Revision, May 2017 Documentation Clarification Form Date: 04/13/2018 12:55:16 PM From: Marilin HernandezGottiQUITA, CCDS Admit Date: 04/11/2018 2:43:00 PM Patient Name: Alfonso Garnett Visit Number: [id number] Discharge Date: ATTENTION: The Clinical Documentation Specialists (CDI) and [facility] Coding Staff appreciate your assistance in clarifying documentation. Please respond to the clarification below the line at the bottom and electronically sign. The CDI & [facility] Coding staff will review the response and follow-up if needed. Please note: Queries are made part of the Legal Health Record. If you have any questions, please contact the author of this message via ITS. Urbano Cummings MD: Osteomyelitis has been documented in the Infectious Disease consult as "This is a 77-year-old male who had bunion surgery on January 28 currently has a pin in the first MPJ and open wound.X-ray is concerning for osteomyelitis." History/Risk Factors: CAD, Hyperlipidemia, ALEJANDRA, BPH, former smoker. Clinical Indicators: Status post bunionectomy 01/28/18 with nonhealing wound on left great toe since surgery, being treated as outpatient. Labs: CRP 59.4^ Left foot Xray: Cannot exclude osteomyelitis of the distal first metatarsal. Treatment: IV fluid bolus, IV Rocephin, IV Vancomycin, IV Kefzol Pending bone scan. In your professional opinion, please specify the acuity of the patient's osteomyelitis if known: Acuity: Acute Chronic Subacute Osteomyelitis ruled out Unable to Determine Acute MTDD
[2018-04-13] MEDS: ATORVASTATIN 10 MG TAB PO SCH (21:20)
[2018-04-13] MEDS: SENNOSIDES-DOCUSATE SODIUM 1 EACH TAB PO SCH (21:21)
[2018-04-13] MEDS: SODIUM CHLORIDE 0.9% 1,000 ML IV SCH (21:21)
[2018-04-14] MEDS ORDERED: VANCOMYCIN 2,250 MG in SODIUM CHLORIDE 0.9% 500 ML 500 ML IVPB SCH ×2
[2018-04-14] MEDS: ceFAZolin IN SWFI 2 GM/20 ML SYRINGE IVP SCH ×3 (00:01→18:12)
[2018-04-14 07:53] LABS: Basophils % (A) 1 %; Eosinophils # (A) 0.3 k/uL (0-0.7); Eosinophils % (A) 6 %; HCT 33.2 % (39.0-53.0); HGB 11.2 gm/dL (13.0-17.5); Lymphocytes # (A) 1.2 k/uL (1.0-4.8); Lymphocytes % (A) 22 %; MCHC 33.7 g/dL (31.0-37.0); MCV 86.1 fL (80.0-100.0); Mean Platelet Volume 7.7; Monocytes # (A) 0.3 k/uL (0-1.0); Monocytes % (A) 5 %; Neutrophils # (A) 3.6 k/uL (1.3-7.7); Neutrophils % (A) 65 %; Platelet Count 141 k/uL (150-450); RBC 3.86 m/uL (4.30-5.90); RDW 13.9 % (11.5-15.5); WBC 5.6 k/uL (3.8-10.6)
[2018-04-14 08:26] LABS: Albumin 3.1 g/dL (3.5-5.0); Potassium 4.2 mmol/L (3.5-5.1); Total Bilirubin 0.3 mg/dL (0.2-1.3)
[2018-04-14] MEDS: PANTOPRAZOLE 40 MG TABLET PO SCH (09:07)
[2018-04-14] MEDS: NAPROXEN 250 MG TAB PO SCH ×2 (09:08→22:11)
[2018-04-14] MEDS: ASPIRIN 81 MG PO SCH (09:08)
[2018-04-14] MEDS: ENOXAPARIN 40 MG/0.4 ML SYRINGE SQ SCH (09:10)
[2018-04-14] MEDS: LOSARTAN 50 MG TAB PO SCH (09:11)
[2018-04-14] MEDS: HYDROcodone/APAP 5-325MG 1 EACH TAB PO SCH ×4 (09:23→22:12)
[2018-04-14] MEDS ORDERED: VANCOMYCIN TROUGH DUE 1 EACH MISC MISCELLANE ONE ×2 (11:00→18:00)
[2018-04-14] MEDS: SODIUM CHLORIDE 0.9% 1,000 ML IV SCH (11:24)
--- NOTE | 2018-04-14 12:44 | P.PN ---
Subjective Progress Note Date: 04/14/18 This is a 77-year-old male patient of Dr. De La Cruz. Patient presented to the emergency room with complaints of left greater toe pain and swelling. Patient states in January of this year he had a bunion surgery with Dr. Villa to that left toe and patient states that ever since surgery he's had multiple issues with healing and required antibiotics. Patient recently referred to Dr. Silverman and underwent debridement of left toe. Patient states Thursday morning he woke up with increased pain to left foot. Patient noticed there was increased redness and swelling. Patient also reports he's had intermittent chills over the past week denies fever. Patient was brought into emergency room by his . Patient has a known past medical history 1 artery disease, hyperlipidemia , prostate disorder, sleep apnea, small aortic aneurysm, sleep apnea, BPH, multiple joint replacements, Lumbar and cervical fusions, and bilateral tennis elbow surgery repair. Foot x-ray completed showing a cannot exclude active osteomyelitis of the distal first metatarsal. Dr. Silverman from infectious disease have been consulted. Patient has been started on Rocephin and vancomycin for IV antibiotics. At this time patient denies chest pain or shortness of breath. Patient denies nausea vomiting or diarrhea. Patient denies any urinary burning or frequency. On 04/13/2018 patient is currently sitting up in chair. Patient is alert and oriented 3. Patient complains of occasional pain with activity to left foot. Time patient denies chest pain or shortness breath. Denies nausea vomiting or diarrhea. Patient denies any urinary burning or frequency On 04/14/2018 patient is currently resting comfortably in bed. Patient remains alert and oriented 3. Patient is still complaining of occasional pain with activity to left foot. Patient denies chest pain or shortness of breath. Patient denies nausea vomiting or diarrhea. Patient denies any urinary burning or frequency Objective - Vital Signs Vital signs: Vital Signs Temp 98.2 F 04/14/18 11:45 Pulse 66 04/14/18 11:45 Resp 16 04/14/18 11:45 BP 149/77 04/14/18 11:45 Pulse Ox 94 L 04/14/18 05:00 Intake & Output 04/13/18 04/14/18 04/14/18 18:59 06:59 18:59 Intake Total 450 1610 Balance 450 1610 Weight 106.594 kg Intake: Intake, IV Titration 450 300 Amount Sodium Chloride 0.9% 1, 450 300 000 ml @ 75 mls/hr IV . [id number] [facility] Rx#:[id number] Oral 1310 Other: Voiding Method Toilet Toilet Toilet # Voids 2 - Exam Head normocephalic Neck supple Lungs clear to auscultation bilaterally no wheezing or crackles Heart regular rate and rhythm S1-S2, no rub or gallop Abdomen is soft nontender nondistended positive bowel sounds no hepatosplenomegaly Extremities no edema. Left greater toe edematous and reddened. Incision site noted minimal drainage. Neuro alert and orientated to 3 - Labs CBC & Chem 7: 04/14/18 07:24 04/14/18 07:24 Labs: Abnormal Lab Results - Last 24 Hours (Table) 04/14/18 04/14/18 Range/Units 07:24 07:24 RBC 3.86 L (4.30-5.90) m/uL Hgb 11.2 L (13.0-17.5) gm/dL Hct 33.2 L (39.0-53.0) % Plt Count 141 L (150-450) k/uL Chloride 110 H (98-107) mmol/L Total Protein 6.0 L (6.3-8.2) g/dL Albumin 3.1 L (3.5-5.0) g/dL Microbiology - Last 24 Hours (Table) 04/11/18 12:40 Blood Culture - Preliminary Blood No Growth after 48 hours Assessment and Plan Assessment: 1. Left greater toe cellulitis. Status post bunion removal in January 2018. Foot x-ray completed, showing an impression that cannot exclude ostium mellitus of the distal first metatarsal. Patient started on vancomycin and Kefzol for IV antibiotics. Dr. Silverman consulted for ID. blood culture has been ordered. 2. Bunion removal in January 2018. Patient has had multiple debridements of the left toe since initial surgery. Dr. Villa per surgical service is consulted. Planning to do further testing in regards to assess for bone involvement with infection. Bone scan completed showing underlining ostium mellitus at the joint should be considered given some increased signal towards the more proximal metatarsal of the left foot, infection along the plate and screws is not excluded. Awaiting Ortho surgical and infectious disease for further recommendations. 3. History of coronary artery disease. Medically managed 4. History of hyperlipidemia 5. History of sleep apnea with CPAP machine 6. History of BPH 7. History of small aortic aneurysm that is managed by Dr. Treviño 8. History of cervical fusions 9. History of osteoarthritis with multiple joint replacements DVT prophylaxis Lovenox GI prophylaxis Protonix I performed an examination of the patient and discussed their management with the Nurse Practitioner. I have reviewed the Nurse Practitioner's notes and agree with the documented findings and plan of care
[2018-04-14] MEDS: MULTIVITAMINS, THERA 1 EACH TAB PO SCH (13:15)
--- NOTE | 2018-04-14 14:37 | P.PN ---
Progress Note - Text Progress Note Date: 04/14/18 Mr. Garnett was seen at bedside today. He is slowly improving on IV ankle myosin. He has diffuse erythema over his first MTP joint and a fluid collection over the proximal aspect of the incision. The skin over the fluid collection was prepped with ChloraPrep and an 18-gauge needle was used to aspirate the fluid collection. 1 mL of cloudy tinged fluid was aspirated and sent for cultures. I was also able to express a small amount of fluid which was also swabbed and sent for cultures. I spoke with Dr. Silverman earlier today and our plan is to continue nonoperative treatment with antibiotics. Hopefully the cultures will help to guide choice of antibiotic. If the patient does not improve he may require a formal incision and drainage in the operating room. Our goal is to suppress the infection until the fusion site heals and then remove the hardware down the road.
[2018-04-14] MEDS: VANCOMYCIN 2,250 MG in SODIUM CHLORIDE 0.9% 500 ML 500 ML IVPB SCH (22:10)
[2018-04-14] MEDS: SENNOSIDES-DOCUSATE SODIUM 1 EACH TAB PO SCH (22:11)
[2018-04-14] MEDS: ATORVASTATIN 10 MG TAB PO SCH (22:11)
--- NOTE | 2018-04-15 00:02 | P.PN ---
Subjective Progress Note Date: 04/14/18 This is a 77-year-old male patient who is [facility] under the care of Dr. Barajas and Mark Bergman NP, for a nonhealing surgical wound on the left foot. Patient gives history of having bunion surgery in January [address] Villa. He initially went to see him for bone spur at the left ankle and had a cortisone shot for that. Subsequently scheduled for bunion surgery. He has had nonhealing of the wound and started at the wound healing center on March 30. His most recent visit was on April 06 which time a debridement was done to the wound on the left first MTP joint. He was scheduled for an outpatient venous duplex which was negative for DVT. Arterial studies have been done and results are pending. Patient states that on Thursday, he sat for several hours playing poker and when he woke up on Thursday he had increasing redness and swelling to the left foot. He came into [facility] emergency center for evaluation. He has been afebrile with normal white count of 6.4, creatinine 1.01. Albumin 3.3 and recent pre-albumin was 27. He had a sed rate done on March 30 which was 17 and C-reactive protein was less than 5. Repeat C- reactive protein on this admission is 59.4.. Patient has been started on Kefzol and vancomycin. Local wound care as Santyl. Recent wound culture in February was positive for MSSA. Patient also gives history of duck hunting about 3 weeks ago and was wearing chest high waders and ended up with water into his waders on the right side only. He is sure that there was no contamination on his left foot. He denies any injury to his foot 04/14/2018 the patient is feeling somewhat better. The case is discussed with the orthopedic surgeon. An aspiration to the site will be obtained. This will further help direct antibiotic therapy. Objective - Vital Signs Vital signs: Vital Signs Temp 97.4 F L 04/14/18 20:10 Pulse 68 04/14/18 20:10 Resp 16 04/14/18 20:10 BP 159/79 04/14/18 20:10 Pulse Ox 96 04/14/18 20:10 Intake & Output 04/14/18 04/14/18 04/15/18 06:59 18:59 06:59 Intake Total 1610 1700 Balance 1610 1700 Weight 106.594 kg Intake: Intake, IV Titration 300 1100 Amount Sodium Chloride 0.9% 1, 300 600 000 ml @ 75 mls/hr IV . [id number] [facility] Rx#:[id number] Vancomycin 2,250 mg In 500 Sodium Chloride 0.9% 500 ml 500 ml @ 167 mls/hr IVPB Q12H [facility] Rx#: [id number] Oral 1310 600 Other: Voiding Method Toilet Toilet # Voids 2 2 - Exam Gen: This is a 77-year-old male. He is sitting in a chair at the bedside with feet in a dependent position. HEENT: Head is atraumatic, normocephalic. Pupils equal, round. Sclerae is anicteric. Conjunctiva pink. Mucous members of the mouth are moist. Dentition is in good order. No lesions noted. NECK: Supple. No JVD. No lymphadenopathy. No thyromegaly. LUNGS: Clear to auscultation. No wheezes or rhonchi. No intercostal retractions. HEART: Regular rate and rhythm. No murmur. ABDOMEN: Soft. Bowel sounds are present. No masses. No tenderness. EXTREMITIES: There is erythema to the first toe and into the mid dorsal foot. Open wound over the MPJ with scant amount of drainage. there is definitely some effusion Edema to the foot. Dorsalis pedis palpable bilaterally. No edema, wounds to the right foot. NEUROLOGICAL: Patient is awake, alert and oriented x3. - Labs CBC & Chem 7: 04/14/18 07:24 04/14/18 07:24 Labs: Abnormal Lab Results - Last 24 Hours (Table) 04/14/18 04/14/18 Range/Units 07:24 07:24 RBC 3.86 L (4.30-5.90) m/uL Hgb 11.2 L (13.0-17.5) gm/dL Hct 33.2 L (39.0-53.0) % Plt Count 141 L (150-450) k/uL Chloride 110 H (98-107) mmol/L Total Protein 6.0 L (6.3-8.2) g/dL Albumin 3.1 L (3.5-5.0) g/dL Microbiology - Last 24 Hours (Table) 04/11/18 12:40 Blood Culture - Preliminary Blood No Growth after 72 hours Laboratory Results WBC 5.6 k/uL (3.8-10.6) 04/14/18 07:24 RBC 3.86 m/uL (4.30-5.90) L 04/14/18 07:24 Hgb 11.2 gm/dL (13.0-17.5) L 04/14/18 07:24 Hct 33.2 % (39.0-53.0) L 04/14/18 07:24 MCV 86.1 fL (80.0-100.0) 04/14/18 07:24 MCH 29.0 pg (25.0-35.0) 04/14/18 07:24 MCHC 33.7 g/dL (31.0-37.0) 04/14/18 07:24 RDW 13.9 % (11.5-15.5) 04/14/18 07:24 Plt Count 141 k/uL (150-450) L 04/14/18 07:24 Neutrophils % 65 % 04/14/18 07:24 Lymphocytes % 22 % 04/14/18 07:24 Monocytes % 5 % 04/14/18 07:24 Eosinophils % 6 % 04/14/18 07:24 Basophils % 1 % 04/14/18 07:24 Neutrophils # 3.6 k/uL (1.3-7.7) 04/14/18 07:24 Lymphocytes # 1.2 k/uL (1.0-4.8) 04/14/18 07:24 Monocytes # 0.3 k/uL (0-1.0) 04/14/18 07:24 Eosinophils # 0.3 k/uL (0-0.7) 04/14/18 07:24 Basophils # 0.0 k/uL (0-0.2) 04/14/18 07:24 Sodium 141 mmol/L (137-145) 04/14/18 07:24 Potassium 4.2 mmol/L (3.5-5.1) 04/14/18 07:24 Chloride 110 mmol/L (98-107) H 04/14/18 07:24 Carbon Dioxide 24 mmol/L (22-30) 04/14/18 07:24 Anion Gap 7 mmol/L 04/14/18 07:24 BUN 18 mg/dL (9-20) 04/14/18 07:24 Creatinine 1.01 mg/dL (0.66-1.25) 04/14/18 07:24 Est GFR (CKD-EPI)AfAm 83 (>60 ml/min/1.73 sqM) 04/14/18 07:24 Est GFR (CKD-EPI)NonAf 72 (>60 ml/min/1.73 sqM) 04/14/18 07:24 Glucose 97 mg/dL (74-99) 04/14/18 07:24 Plasma Lactic Acid Valeriy 1.0 mmol/L (0.7-2.0) 04/11/18 12:40 Calcium 9.0 mg/dL (8.4-10.2) 04/14/18 07:24 Total Bilirubin 0.3 mg/dL (0.2-1.3) 04/14/18 07:24 AST 20 U/L (17-59) 04/14/18 07:24 ALT 21 U/L (21-72) 04/14/18 07:24 Alkaline Phosphatase 47 U/L (38-126) 04/14/18 07:24 C-Reactive Protein 59.4 mg/L (<10.0) H 04/11/18 12:40 Total Protein 6.0 g/dL (6.3-8.2) L 04/14/18 07:24 Albumin 3.1 g/dL (3.5-5.0) L 04/14/18 07:24 Vancomycin Trough 13.4 ug/mL 04/14/18 20:00 Microbiology 04/11/18 12:40 Blood Blood Culture - Preliminary No Growth after 72 hours Assessment and Plan (1) Chronic wound of extremity Narrative/Plan: This pleasant gentleman is highly active and is very discouraged that the current cellulitis occurring which will get him off track for his deer hunting which is coming up just in a few days. He is a very discouraged by this difficulty. At this time evaluation of underlying deeper infection as requested and bone scan has been ordered given the hardware that is present MRI not likely to be helpful. Kefzol is added vancomycin with the potential history of MSSA infection. Current cultures are pending. Local wound care with Silvadene will be applied to the foot in a wrap she'll be utilized. Elevate while he is at rest. Patient likely will require an outpatient course of intravenous antibiotic therapy, he does not desire to be homebound and likely will be coming to the outpatient clinic for antimicrobial therapy. Findings on the bone scan will be communicated with the orthopedic foot and ankle surgeon as to the next course of action. We'll should his proteins are adequate and make sure he gets a multivitamin with his ongoing elevation. 04/14/2018 the patient will have the Site aspirated by orthopedic surgery. This will further help direct antibiotic therapy at discharge. Elevation of the limb at rest is helpful. Continue antibiotic therapy at this time with Ancef and vancomycin pending culture results. Has a prior history of MSSA infection. bone scan is suggestive of abnormality but could be post operative in nature. Current Visit: Yes Status: Acute Code(s): [id number] - SNOMED Code(s): 090804478
[2018-04-15] MEDS: ceFAZolin IN SWFI 2 GM/20 ML SYRINGE IVP SCH ×4 (00:11→23:29)
[2018-04-15] MEDS ORDERED: VANCOMYCIN TROUGH DUE 1 EACH MISC MISCELLANE ONE (06:00)
[2018-04-15] MEDS: VANCOMYCIN 2,250 MG in SODIUM CHLORIDE 0.9% 500 ML 500 ML IVPB SCH ×2 (07:24→18:04)
[2018-04-15] MEDS: PANTOPRAZOLE 40 MG TABLET PO SCH (07:25)
[2018-04-15 07:44] LABS: Basophils % (A) 1 %; Eosinophils # (A) 0.3 k/uL (0-0.7); Eosinophils % (A) 6 %; HCT 32.9 % (39.0-53.0); HGB 10.7 gm/dL (13.0-17.5); Lymphocytes # (A) 1.3 k/uL (1.0-4.8); Lymphocytes % (A) 25 %; MCH 28.4 pg (25.0-35.0); MCHC 32.5 g/dL (31.0-37.0); MCV 87.5 fL (80.0-100.0); Mean Platelet Volume 7.2; Monocytes # (A) 0.3 k/uL (0-1.0); Monocytes % (A) 6 %; Neutrophils # (A) 3.2 k/uL (1.3-7.7); Neutrophils % (A) 61 %; Platelet Count 153 k/uL (150-450); RBC 3.76 m/uL (4.30-5.90); RDW 13.7 % (11.5-15.5); WBC 5.3 k/uL (3.8-10.6)
[2018-04-15 07:56] LABS: ALT 20 U/L (21-72); AST 22 U/L (17-59); Albumin 3.3 g/dL (3.5-5.0); Alkaline Phosphatase 47 U/L (38-126); Anion Gap 7 mmol/L; Blood Urea Nitrogen 21 mg/dL (9-20); Calcium 9.1 mg/dL (8.4-10.2); Carbon Dioxide 26 mmol/L (22-30); Chloride 109 mmol/L (98-107); Glucose 94 mg/dL (74-99); Potassium 4.3 mmol/L (3.5-5.1); Sodium 142 mmol/L (137-145); Total Bilirubin 0.3 mg/dL (0.2-1.3); Total Protein 6.3 g/dL (6.3-8.2)
[2018-04-15] MEDS: ENOXAPARIN 40 MG/0.4 ML SYRINGE SQ SCH (08:48)
[2018-04-15] MEDS: LOSARTAN 50 MG TAB PO SCH (08:48)
[2018-04-15] MEDS: ASPIRIN 81 MG PO SCH (08:48)
[2018-04-15] MEDS: NAPROXEN 250 MG TAB PO SCH ×2 (08:49→20:28)
[2018-04-15] MEDS: SODIUM CHLORIDE 0.9% 1,000 ML IV SCH ×2 (09:20→12:49)
[2018-04-15] MEDS: HYDROcodone/APAP 5-325MG 1 EACH TAB PO SCH ×4 (10:07→20:40)
--- NOTE | 2018-04-15 10:11 | P.PN ---
Subjective Progress Note Date: 04/15/18 This is a 77-year-old male patient of Dr. De La Cruz. Patient presented to the emergency room with complaints of left greater toe pain and swelling. Patient states in January of this year he had a bunion surgery with Dr. Villa to that left toe and patient states that ever since surgery he's had multiple issues with healing and required antibiotics. Patient recently referred to Dr. Silverman and underwent debridement of left toe. Patient states Thursday morning he woke up with increased pain to left foot. Patient noticed there was increased redness and swelling. Patient also reports he's had intermittent chills over the past week denies fever. Patient was brought into emergency room by his . Patient has a known past medical history 1 artery disease, hyperlipidemia , prostate disorder, sleep apnea, small aortic aneurysm, sleep apnea, BPH, multiple joint replacements, Lumbar and cervical fusions, and bilateral tennis elbow surgery repair. Foot x-ray completed showing a cannot exclude active osteomyelitis of the distal first metatarsal. Dr. Silverman from infectious disease have been consulted. Patient has been started on Rocephin and vancomycin for IV antibiotics. At this time patient denies chest pain or shortness of breath. Patient denies nausea vomiting or diarrhea. Patient denies any urinary burning or frequency. On 04/13/2018 patient is currently sitting up in chair. Patient is alert and oriented 3. Patient complains of occasional pain with activity to left foot. Time patient denies chest pain or shortness breath. Denies nausea vomiting or diarrhea. Patient denies any urinary burning or frequency On 04/14/2018 patient is currently resting comfortably in bed. Patient remains alert and oriented 3. Patient is still complaining of occasional pain with activity to left foot. Patient denies chest pain or shortness of breath. Patient denies nausea vomiting or diarrhea. Patient denies any urinary burning or frequency On 04/15/2018 patient is resting comfortably in bed alert and oriented 3. Patient underwent aspiration of foot per Dr. Daisy Silverman yesterday patient remains on vancomycin and Kefzol for IV antibiotics. At this time patient denies chest pain or shortness of breath. Patient denies nausea vomiting or diarrhea. Patient denies any urinary burning or frequency. Patient states that he did receive some relief post aspiration of of left foot. Objective - Vital Signs Vital signs: Vital Signs Temp 97.5 F L 04/15/18 05:00 Pulse 61 04/15/18 05:00 Resp 14 04/15/18 09:16 BP 165/89 04/15/18 05:00 Pulse Ox 95 04/15/18 05:00 Intake & Output 04/14/18 04/15/18 04/15/18 18:59 06:59 18:59 Intake Total 1700 2900 Balance 1700 2900 Weight 106.594 kg Intake: Intake, IV Titration 1100 1700 Amount Sodium Chloride 0.9% 1, 600 1200 000 ml @ 75 mls/hr IV . [id number] [facility] Rx#:[id number] Vancomycin 2,250 mg In 500 500 Sodium Chloride 0.9% 500 ml 500 ml @ 167 mls/hr IVPB Q12H [facility] Rx#: [id number] Oral 600 1200 Other: Voiding Method Toilet Toilet Toilet # Voids 2 2 - Exam Head normocephalic Neck supple Lungs clear to auscultation bilaterally no wheezing or crackles Heart regular rate and rhythm S1-S2, no rub or gallop Abdomen is soft nontender nondistended positive bowel sounds no hepatosplenomegaly Extremities no edema. Left greater toe edematous and reddened. Incision site noted minimal drainage. Neuro alert and orientated to 3 - Labs CBC & Chem 7: 04/15/18 06:58 04/15/18 06:58 Labs: Abnormal Lab Results - Last 24 Hours (Table) 04/15/18 04/15/18 Range/Units 06:58 06:58 RBC 3.76 L (4.30-5.90) m/uL Hgb 10.7 L (13.0-17.5) gm/dL Hct 32.9 L (39.0-53.0) % Chloride 109 H (98-107) mmol/L BUN 21 H (9-20) mg/dL ALT 20 L (21-72) U/L Albumin 3.3 L (3.5-5.0) g/dL Microbiology - Last 24 Hours (Table) 04/14/18 14:51 Gram Stain - Preliminary Aspirate Body Fluid Culture - Preliminary 04/11/18 12:40 Blood Culture - Preliminary Blood No Growth after 72 hours Assessment and Plan Assessment: 1. Left greater toe cellulitis. Status post bunion removal in January 2018. Foot x-ray completed, showing an impression that cannot exclude ostium mellitus of the distal first metatarsal. Patient started on vancomycin and Kefzol for IV antibiotics. Per Dr. Silverman with infectious disease continue antibiotic therapy at this time awaiting final culture results to guide antibiotics post discharge. 2. Bunion removal in January 2018. Patient has had multiple debridements of the left toe since initial surgery. Dr. Villa per surgical service is consulted. Planning to do further testing in regards to assess for bone involvement with infection. Bone scan completed showing underlining ostium mellitus at the joint should be considered given some increased signal towards the more proximal metatarsal of the left foot, infection along the plate and screws is not excluded. Per Dr. Villa 1 mL of cloudy tinge fluid was aspirated from left foot site and sent for cultures. If the patient does not improve he may require formal incision and drainage in the operating room. Per orthopedics goal is to suppress the infection into the fusion site heals in the removal of hardware down the road 3. History of coronary artery disease. Medically managed 4. History of hyperlipidemia 5. History of sleep apnea with CPAP machine 6. History of BPH 7. History of small aortic aneurysm that is managed by Dr. Treviño 8. History of cervical fusions 9. History of osteoarthritis with multiple joint replacements 10. Anemia. Hemoglobin up to 10.7. Iron studies have been ordered DVT prophylaxis Lovenox GI prophylaxis Protonix I performed an examination of the patient and discussed their management with the Nurse Practitioner. I have reviewed the Nurse Practitioner's notes and agree with the documented findings and plan of care
--- NOTE | 2018-04-15 10:17 | P.PN ---
Progress Note - Text Progress Note Date: 04/15/18 Patient is currently showering and unavailable for exam. Vital signs are currently stable and preliminary culture results reveal a rare gram-positive cocci in clusters. We will continue to follow patient and await final culture results. If patient does not improve on antibiotics he may require formal I&D in operating room.
--- NOTE | 2018-04-15 11:04 | CDI ---
Last Revision, May 2017 Documentation Clarification Form Date: 04/15/2018 10:56:23 AM From: Marilin HernandezGottiQUITA, CCDS Admit Date: 04/11/2018 2:43:00 PM Patient Name: Alfonso Garnett Visit Number: [id number] Discharge Date: ATTENTION: The Clinical Documentation Specialists (CDI) and [facility] Coding Staff appreciate your assistance in clarifying documentation. Please respond to the clarification below the line at the bottom and electronically sign. The CDI & [facility] Coding staff will review the response and follow-up if needed. Please note: Queries are made part of the Legal Health Record. If you have any questions, please contact the author of this message via ITS. Jaxson Florez MD: A diagnosis of anemia lacks specificity to accurately reflect your patients severity of condition and clarification is needed. Per the 04/15 medical management progress note: "Anemia. Hemoglobin up to 10.7.Iron studies have been ordered." History/Risk Factors: CAD, Hyperlipidemia, BPH, Sleep apnea, Small aortic aneurysm, Multiple joint replacements, Lumbar & cervical fusions and former smoker. Clinical indicators: Presented with a chronic non healing wound & cellulitis to the left great toe with pain & swelling. Patient had bunionectomy in January. Hemoglobin: 12.3 - 11.2 - 11.5 - 11.2 - 10.7 Hematocrit: 37.0 - 34.1 - 36.1 - 33.2 - 32.9 Treatment: IV fluid bolus, IV Rocephin, IV Narcan, IV fl 75, IV Vanco, IV Kefzol , Aspiration of wound with pending cultures. In order to capture the severity of condition, please clarify the type of anemia and etiology if known: Acute blood loss anemia Acute on chronic blood loss anemia Chronic blood loss anemia Iron deficiency anemia Hemolytic anemia Drug induced anemia Nutritional anemia Unable to determine Other, please specify iron deficiency anemia MTDD
[2018-04-15 12:46] LABS: Prothrombin Time 9.5 sec (9.0-12.0)
[2018-04-15] MEDS: MULTIVITAMINS, THERA 1 EACH TAB PO SCH (12:49)
[2018-04-15] MEDS ORDERED: LIDOCAINE 1% INJ 10MG/ML (20 ML MDV) SQ ONE (14:41)
--- NOTE | 2018-04-15 15:06 | IR ---
PICC LINE PLACEMENT: HISTORY: Infection requiring long-term antibiotic therapy PROCEDURE: Ultrasound and fluoroscopic guidance of PICC line placement. COMPLICATIONS: None ANESTHESIA: 1. 1% Lidocaine locally. FINDINGS/TECHNIQUE: The procedure was explained to the patient. The risks, complications, benefits and alternatives were discussed and any questions were answered. Informed consent was obtained. The patient was placed supine on the fluoroscopic table and prepped and draped in the usual sterile fash ion. Utilizing a 21 gauge needle and sonographic and fluoroscopic guidance, access in the left basi lic vein was achieved and there is placement of a 0.018 guidewire. The vein is patent. A 4-F sheath was placed over the guidewire. The guidewire and dilator were removed and a 4-F. PICC line was plac ed through the sheath with the tip at the level of the SVC. The sheath was removed, the catheter was flushed and sutured into position. The patient was stable throughout the procedure and remained sta ble upon discharge from the Department of Radiology. The vein puncture was patent under ultrasound. A carcamo scale image was obtained to document patency of the vein punctured. All elements of the maximal barrier technique were utilized. FLUOROSCOPY TIME: 1.6 minutes, one image submitted IMPRESSION: Successful PICC line placement under ultrasound and fluoroscopic guidance.
[2018-04-15 18:04] LABS: Iron Saturation 8.5 (15.00-50.00)
[2018-04-15] MEDS: SENNOSIDES-DOCUSATE SODIUM 1 EACH TAB PO SCH (20:27)
[2018-04-15] MEDS: ATORVASTATIN 10 MG TAB PO SCH (20:28)
--- NOTE | 2018-04-15 22:20 | P.PN ---
Subjective Progress Note Date: 04/15/18 This is a 77-year-old male patient who [facility] under the care of Dr. Barajas and Mark Bergman NP, for a nonhealing surgical wound on the left foot. Patient gives history of having bunion surgery in January [address] Villa. He initially went to see him for bone spur at the left ankle and had a cortisone shot for that. Subsequently scheduled for bunion surgery. He has had nonhealing of the wound and started at the wound healing center on March 30. His most recent visit was on April 06 which time a debridement was done to the wound on the left first MTP joint. He was scheduled for an outpatient venous duplex which was negative for DVT. Arterial studies have been done and results are pending. Patient states that on Thursday, he sat for several hours playing poker and when he woke up on Thursday he had increasing redness and swelling to the left foot. He came into [facility] emergency center for evaluation. He has been afebrile with normal white count of 6.4, creatinine 1.01. Albumin 3.3 and recent pre-albumin was 27. He had a sed rate done on March 30 which was 17 and C-reactive protein was less than 5. Repeat C- reactive protein on this admission is 59.4.. Patient has been started on Kefzol and vancomycin. Local wound care as Santyl. Recent wound culture in February was positive for MSSA. Patient also gives history of duck hunting about 3 weeks ago and was wearing chest high waders and ended up with water into his waders on the right side only. He is sure that there was no contamination on his left foot. He denies any injury to his foot 04/14/2018 the patient is feeling somewhat better. The case is discussed with the orthopedic surgeon. An aspiration to the site will be obtained. This will further help direct antibiotic therapy. 04/15/2018 patient is doing better after the aspiration. This is reduced the pressure and the toe and his pain is much improved. He is denying fevers or chills. IV access was then placed awaiting culture for his outpatient antibiotic therapy. Objective - Vital Signs Vital signs: Vital Signs Temp 97.7 F 04/15/18 21:00 Pulse 62 04/15/18 21:00 Resp 16 04/15/18 21:00 BP 176/89 04/15/18 21:00 Pulse Ox 96 04/15/18 21:00 Intake & Output 04/15/18 04/15/18 04/16/18 06:59 18:59 06:59 Intake Total 2900 Balance 2900 Weight 106.594 kg Intake: Intake, IV Titration 1700 Amount Sodium Chloride 0.9% 1, 1200 000 ml @ 75 mls/hr IV . [id number] [facility] Rx#:[id number] Vancomycin 2,250 mg In 500 Sodium Chloride 0.9% 500 ml 500 ml @ 167 mls/hr IVPB Q12H [facility] Rx#: [id number] Oral 1200 Other: Voiding Method Toilet Toilet # Voids 2 3 2 - Exam Gen: This is a 77-year-old male. He is sitting in a chair at the bedside with feet in a dependent position. HEENT: Head is atraumatic, normocephalic. Pupils equal, round. Sclerae is anicteric. Conjunctiva pink. Mucous members of the mouth are moist. Dentition is in good order. No lesions noted. NECK: Supple. No JVD. No lymphadenopathy. No thyromegaly. LUNGS: Clear to auscultation. No wheezes or rhonchi. No intercostal retractions. HEART: Regular rate and rhythm. No murmur. ABDOMEN: Soft. Bowel sounds are present. No masses. No tenderness. EXTREMITIES: There is erythema to the first toe and into the mid dorsal foot. Open wound over the MPJ with scant amount of drainage. there is definitely some effusion Edema to the foot. Dorsalis pedis palpable bilaterally. No edema, wounds to the right foot. NEUROLOGICAL: Patient is awake, alert and oriented x3. - Labs CBC & Chem 7: 04/15/18 06:58 04/15/18 06:58 Labs: Abnormal Lab Results - Last 24 Hours (Table) 04/15/18 04/15/18 04/15/18 Range/Units 06:58 06:58 06:58 RBC 3.76 L (4.30-5.90) m/uL Hgb 10.7 L (13.0-17.5) gm/dL Hct 32.9 L (39.0-53.0) % Chloride 109 H (98-107) mmol/L BUN 21 H (9-20) mg/dL Iron 25 L (65-175) ug/dL Iron Saturation 8.50 L (15.00-50.00) ALT 20 L (21-72) U/L Albumin 3.3 L (3.5-5.0) g/dL Microbiology - Last 24 Hours (Table) 04/14/18 14:51 Gram Stain - Preliminary Aspirate Body Fluid Culture - Preliminary Presumptive Staph aureus 04/11/18 12:40 Blood Culture - Preliminary Blood No Growth after 96 hours Laboratory Results WBC 5.3 k/uL (3.8-10.6) 04/15/18 06:58 RBC 3.76 m/uL (4.30-5.90) L 04/15/18 06:58 Hgb 10.7 gm/dL (13.0-17.5) L 04/15/18 06:58 Hct 32.9 % (39.0-53.0) L 04/15/18 06:58 MCV 87.5 fL (80.0-100.0) 04/15/18 06:58 MCH 28.4 pg (25.0-35.0) 04/15/18 06:58 MCHC 32.5 g/dL (31.0-37.0) 04/15/18 06:58 RDW 13.7 % (11.5-15.5) 04/15/18 06:58 Plt Count 153 k/uL (150-450) 04/15/18 06:58 Neutrophils % 61 % 04/15/18 06:58 Lymphocytes % 25 % 04/15/18 06:58 Monocytes % 6 % 04/15/18 06:58 Eosinophils % 6 % 04/15/18 06:58 Basophils % 1 % 04/15/18 06:58 Neutrophils # 3.2 k/uL (1.3-7.7) 04/15/18 06:58 Lymphocytes # 1.3 k/uL (1.0-4.8) 04/15/18 06:58 Monocytes # 0.3 k/uL (0-1.0) 04/15/18 06:58 Eosinophils # 0.3 k/uL (0-0.7) 04/15/18 06:58 Basophils # 0.0 k/uL (0-0.2) 04/15/18 06:58 PT 9.5 sec (9.0-12.0) 04/15/18 12:20 INR 1.0 (<1.2) 04/15/18 12:20 Sodium 142 mmol/L (137-145) 04/15/18 06:58 Potassium 4.3 mmol/L (3.5-5.1) 04/15/18 06:58 Chloride 109 mmol/L (98-107) H 04/15/18 06:58 Carbon Dioxide 26 mmol/L (22-30) 04/15/18 06:58 Anion Gap 7 mmol/L 04/15/18 06:58 BUN 21 mg/dL (9-20) H 04/15/18 06:58 Creatinine 0.94 mg/dL (0.66-1.25) 04/15/18 06:58 Est GFR (CKD-EPI)AfAm >90 (>60 ml/min/1.73 sqM) 04/15/18 06:58 Est GFR (CKD-EPI)NonAf 78 (>60 ml/min/1.73 sqM) 04/15/18 06:58 Glucose 94 mg/dL (74-99) 04/15/18 06:58 Plasma Lactic Acid Valeriy 1.0 mmol/L (0.7-2.0) 04/11/18 12:40 Calcium 9.1 mg/dL (8.4-10.2) 04/15/18 06:58 Iron 25 ug/dL (65-175) L 04/15/18 06:58 TIBC 294 ug/dL (228-460) 04/15/18 06:58 Iron Saturation 8.50 (15.00-50.00) L 04/15/18 06:58 Ferritin 163.0 ng/mL (22.0-322.0) 04/15/18 06:58 Total Bilirubin 0.3 mg/dL (0.2-1.3) 04/15/18 06:58 AST 22 U/L (17-59) 04/15/18 06:58 ALT 20 U/L (21-72) L 04/15/18 06:58 Alkaline Phosphatase 47 U/L (38-126) 04/15/18 06:58 C-Reactive Protein 59.4 mg/L (<10.0) H 04/11/18 12:40 Total Protein 6.3 g/dL (6.3-8.2) 04/15/18 06:58 Albumin 3.3 g/dL (3.5-5.0) L 04/15/18 06:58 Vancomycin Trough 20.2 ug/mL 04/15/18 06:58 Microbiology 04/14/18 14:51 Aspirate Gram Stain - Preliminary 04/14/18 14:51 Aspirate Body Fluid Culture - Preliminary Presumptive Staph aureus 04/11/18 12:40 Blood Blood Culture - Preliminary No Growth after 96 hours Assessment and Plan (1) Chronic wound of extremity Narrative/Plan: This pleasant gentleman is highly active and is very discouraged that the current cellulitis occurring which will get him off track for his deer hunting which is coming up just in a few days. He is a very discouraged by this difficulty. At this time evaluation of underlying deeper infection as requested and bone scan has been ordered given the hardware that is present MRI not likely to be helpful. Kefzol is added vancomycin with the potential history of MSSA infection. Current cultures are pending. Local wound care with Silvadene will be applied to the foot in a wrap she'll be utilized. Elevate while he is at rest. Patient likely will require an outpatient course of intravenous antibiotic therapy, he does not desire to be homebound and likely will be coming to the outpatient clinic for antimicrobial therapy. Findings on the bone scan will be communicated with the orthopedic foot and ankle surgeon as to the next course of action. We'll should his proteins are adequate and make sure he gets a multivitamin with his ongoing elevation. 04/14/2018 the patient will have the Site aspirated by orthopedic surgery. This will further help direct antibiotic therapy at discharge. Elevation of the limb at rest is helpful. Continue antibiotic therapy at this time with Ancef and vancomycin pending culture results. Has a prior history of MSSA infection. bone scan is suggestive of abnormality but could be post operative in nature. 04/15/2018 H and is having improvement status post the aspiration. Likely MSSA to be isolated from the foot. Bone scan is abnormal cannot exclude deep infection. We'll plan on outpatient intravenous antibiotic therapy with Rocephin likely in the office, patient does not want to be homebound. IV access has been placed Current Visit: Yes Status: Acute Code(s): AOS3025 - SNOMED Code(s): 203504480
[2018-04-16 07:43] LABS: Basophils % (A) 1 %; Eosinophils # (A) 0.3 k/uL (0-0.7); Eosinophils % (A) 6 %; HCT 33.4 % (39.0-53.0); HGB 11.3 gm/dL (13.0-17.5); Lymphocytes # (A) 1.3 k/uL (1.0-4.8); Lymphocytes % (A) 24 %; MCH 29.3 pg (25.0-35.0); MCV 86.3 fL (80.0-100.0); Mean Platelet Volume 7.8; Monocytes # (A) 0.3 k/uL (0-1.0); Monocytes % (A) 5 %; Neutrophils # (A) 3.5 k/uL (1.3-7.7); Neutrophils % (A) 63 %; Platelet Count 158 k/uL (150-450); RBC 3.87 m/uL (4.30-5.90); WBC 5.6 k/uL (3.8-10.6)
[2018-04-16 07:45] LABS: ALT 20 U/L (21-72); AST 26 U/L (17-59); Albumin 3.5 g/dL (3.5-5.0); Alkaline Phosphatase 48 U/L (38-126); Anion Gap 7 mmol/L; Blood Urea Nitrogen 19 mg/dL (9-20); Calcium 9.6 mg/dL (8.4-10.2); Carbon Dioxide 25 mmol/L (22-30); Chloride 109 mmol/L (98-107); Glucose 102 mg/dL (74-99); Potassium 4.3 mmol/L (3.5-5.1); Sodium 141 mmol/L (137-145); Total Bilirubin 0.3 mg/dL (0.2-1.3); Total Protein 6.6 g/dL (6.3-8.2)
[2018-04-16] MEDS: NAPROXEN 250 MG TAB PO SCH (08:05)
[2018-04-16] MEDS: PANTOPRAZOLE 40 MG TABLET PO SCH (08:06)
[2018-04-16] MEDS: LOSARTAN 50 MG TAB PO SCH (08:06)
[2018-04-16] MEDS: ENOXAPARIN 40 MG/0.4 ML SYRINGE SQ SCH (08:06)
[2018-04-16] MEDS: ASPIRIN 81 MG PO SCH (08:06)
[2018-04-16] MEDS: HYDROcodone/APAP 5-325MG 1 EACH TAB PO SCH ×2 (08:07→12:38)
[2018-04-16] MEDS: VANCOMYCIN 2,250 MG in SODIUM CHLORIDE 0.9% 500 ML 500 ML IVPB SCH (08:21)
[2018-04-16] MEDS: ceFAZolin IN SWFI 2 GM/20 ML SYRINGE IVP SCH ×2 (08:23→16:35)
[2018-04-16] MEDS ORDERED: FERROUS SULFATE 325 MG TAB PO SCH (09:00)
[2018-04-16] MEDS: SODIUM CHLORIDE 0.9% 1,000 ML IV SCH ×2 (09:25→16:37)
[2018-04-16 11:48] VITALS: BP 146/78; PULSE 60; RESP 14; TEMP 98.6
--- NOTE | 2018-04-16 12:43 | P.DS ---
Providers Date of admission: 04/11/18 14:43 Expected date of discharge: 04/16/18 Attending physician: Jaxson Machado Consults: 04/11/18 19:08 Consult Physician Routine Consulting Provider: Urbano Silverman Consult Reason/Comments: osteomyelitis Do you want consulting provider notified?: Yes 04/12/18 13:21 Consult Physician Routine Consulting Provider: Sandip Villa Consult Reason/Comments: recent surgery Do you want consulting provider notified?: Yes Primary care physician: Em Em Hospital Course: Discharge diagnosis 1. Left greater toe cellulitis. Status post bunion removal in January 2018. Foot x-ray completed, showing an impression that cannot exclude ostium mellitus of the distal first metatarsal. Patient started on vancomycin and Kefzol for IV antibiotics. Per Dr. Silverman with infectious disease continue antibiotic therapy at this time awaiting final culture results to guide antibiotics post discharge. Infectious disease has cleared patient for discharge. patient has PICC line in place. Per infectious disease outpatient anti-biotic IV therapy with Rocephin likely in the office. Wound cultures currently growing presumptive staph aureus. She cleared for discharge from infectious disease standpoint. 2. Bunion removal in January 2018. Patient has had multiple debridements of the left toe since initial surgery. Dr. Villa per surgical service is consulted. Planning to do further testing in regards to assess for bone involvement with infection. Bone scan completed showing underlining ostium mellitus at the joint should be considered given some increased signal towards the more proximal metatarsal of the left foot, infection along the plate and screws is not excluded. Per Dr. Villa 1 mL of cloudy tinge fluid was aspirated from left foot site and sent for cultures. If the patient does not improve he may require formal incision and drainage in the operating room. Per orthopedics goal is to suppress the infection into the fusion site heals in the removal of hardware down the road 3. History of coronary artery disease. Medically managed 4. History of hyperlipidemia 5. History of sleep apnea with CPAP machine 6. History of BPH 7. History of small aortic aneurysm that is managed by Dr. Treviño 8. History of cervical fusions 9. History of osteoarthritis with multiple joint replacements 10. Iron deficiency Anemia. Hemoglobin up to 10.7. Iron low at 25 and iron saturation 8.50. Ferrous sulfate has been ordered Hospital course This is a 77-year-old male patient of Dr. De La Cruz. Patient presented to the emergency room with complaints of left greater toe pain and swelling. Patient states in January of this year he had a bunion surgery with Dr. Villa to that left toe and patient states that ever since surgery he's had multiple issues with healing and required antibiotics. Patient recently referred to Dr. Silverman and underwent debridement of left toe. Patient states Thursday morning he woke up with increased pain to left foot. Patient noticed there was increased redness and swelling. Patient also reports he's had intermittent chills over the past week denies fever. Patient was brought into emergency room by his . Patient has a known past medical history 1 artery disease, hyperlipidemia , prostate disorder, sleep apnea, small aortic aneurysm, sleep apnea, BPH, multiple joint replacements, Lumbar and cervical fusions, and bilateral tennis elbow surgery repair. Foot x-ray completed showing a cannot exclude active osteomyelitis of the distal first metatarsal. Dr. Silverman from infectious disease have been consulted. Patient has been started on Rocephin and vancomycin for IV antibiotics. At this time patient denies chest pain or shortness of breath. Patient denies nausea vomiting or diarrhea. Patient denies any urinary burning or frequency. On 04/13/2018 patient is currently sitting up in chair. Patient is alert and oriented 3. Patient complains of occasional pain with activity to left foot. Time patient denies chest pain or shortness breath. Denies nausea vomiting or diarrhea. Patient denies any urinary burning or frequency On 04/14/2018 patient is currently resting comfortably in bed. Patient remains alert and oriented 3. Patient is still complaining of occasional pain with activity to left foot. Patient denies chest pain or shortness of breath. Patient denies nausea vomiting or diarrhea. Patient denies any urinary burning or frequency On 04/15/2018 patient is resting comfortably in bed alert and oriented 3. Patient underwent aspiration of foot per Dr. Daisy Silverman yesterday patient remains on vancomycin and Kefzol for IV antibiotics. At this time patient denies chest pain or shortness of breath. Patient denies nausea vomiting or diarrhea. Patient denies any urinary burning or frequency. Patient states that he did receive some relief post aspiration of of left foot. On 04/16/2018 patient is very eager to go home. Patient is alert and oriented 3. Patient has PICC line placed yesterday. Discussed case with Aracelis RAMÍREZ per with Dr. Silverman. Patient has been cleared for discharge from infectious disease standpoint. Patient will be discharged home on IV antibiotic Rocephin. Patient to follow-up closely with Dr. Silverman, Dr. Villa and primary care provider. This time patient denies chest pain or shortness of breath. Patient denies nausea vomiting or diarrhea. Patient denies any urinary burning or frequency I performed an examination of the patient and discussed their management with the Nurse Practitioner. I have reviewed the Nurse Practitioner's notes and agree with the documented findings and plan of care Patient Condition at Discharge: Stable Plan - Discharge Summary Discharge Rx Participant: No New Discharge Prescriptions: New cefTRIAXone [Rocephin] 2,000 mg IVPB Q24HR #42 vial Ferrous Sulfate [Iron (65 MG Elemental)] 325 mg PO BID #60 tab Multivitamins, Thera [Multivitamin (formulary)] 1 each PO DAILY@1200 #30 tab SILVER sulfADIAZINE CREAM [Silvadene Cream] 1 applic TOPICAL BID #1 tube Continue Acetaminophen Tab [Tylenol] 650 mg PO Q4H PRN PRN Reason: Pain Simvastatin [Zocor] 20 mg PO HS Losartan [Cozaar] 50 mg PO DAILY Aspirin [Adult Low Dose Aspirin EC] 81 mg PO DAILY Naproxen Sodium [Aleve] 220 mg PO Q12HR #14 tab HYDROcodone/APAP 5-325MG [Free Soil 5-325] 1 tab PO QID Collagenase [Santyl] 1 applicate TOPICAL DAILY Discharge Medication List Acetaminophen Tab [Tylenol] 650 mg PO Q4H PRN 10/27/16 [History] Aspirin [Adult Low Dose Aspirin EC] 81 mg PO DAILY 10/27/16 [History] Losartan [Cozaar] 50 mg PO DAILY 10/27/16 [History] Simvastatin [Zocor] 20 mg PO HS 10/27/16 [History] Naproxen Sodium [Aleve] 220 mg PO Q12HR #14 tab 12/11/16 [Rx] Collagenase [Santyl] 1 applicate TOPICAL DAILY 04/11/18 [History] HYDROcodone/APAP 5-325MG [Free Soil 5-325] 1 tab PO QID 04/11/18 [History] Ferrous Sulfate [Iron (65 MG Elemental)] 325 mg PO BID #60 tab 04/16/18 [Rx] Multivitamins, Thera [Multivitamin (formulary)] 1 each PO DAILY@1200 #30 tab 02/23 [Rx] SILVER sulfADIAZINE CREAM [Silvadene Cream] 1 applic TOPICAL BID #1 tube [Rx] cefTRIAXone [Rocephin] 2,000 mg IVPB Q24HR #42 vial 04/16/18 [Rx] Follow up Appointment(s)/Referral(s): Urbano Silverman MD [STAFF PHYSICIAN] - 1 Week Em Em MD [Primary Care Provider] - 1-2 days Ambulatory/Diagnostic Orders: Miscellaneous Lab Order [LAB.AMB] Location: None Selected Basic Metabolic Panel [LAB.AMB] Location: None Selected Complete Blood Count w/diff [LAB.AMB] Location: None Selected Activity/Diet/Wound Care/Special Instructions: Activity as tolerated Diet regular Discharge Disposition: HOME SELF-CARE
[2018-04-16] MEDS: MULTIVITAMINS, THERA 1 EACH TAB PO SCH (16:36)
--- NOTE | 2018-04-16 19:02 | P.PN ---
Subjective Progress Note Date: 04/16/18 Principal diagnosis: Chronic wound lower extremity Patient states he is feeling well today. He states the pain in his left foot has decreased since the aspiration was done. Patient denies fevers or chills. Objective - Vital Signs Vital signs: Vital Signs Temp 98.6 F 04/16/18 11:46 Pulse 60 04/16/18 11:46 Resp 14 04/16/18 11:46 BP 146/78 04/16/18 11:46 Pulse Ox 98 04/16/18 11:46 Intake & Output 04/15/18 04/16/18 04/16/18 18:59 06:59 18:59 Other: Voiding Method Toilet Toilet Toilet # Voids 3 2 - Exam Exam revealed patient sitting up in chair in no acute distress. There is erythema and swelling to the left foot with an open wound over the mid foot with minimal drainage. Dorsalis pedis pulse +2 bilaterally. Active range of motion of the ankle, foot, and toes. Sensation to light touch is intact throughout foot. No edema, wounds of the right foot. - Labs CBC & Chem 7: 04/16/18 07:21 04/16/18 07:21 Labs: Abnormal Lab Results - Last 24 Hours (Table) 04/15/18 04/16/18 04/16/18 Range/Units 06:58 07:21 07:21 RBC 3.87 L (4.30-5.90) m/uL Hgb 11.3 L (13.0-17.5) gm/dL Hct 33.4 L (39.0-53.0) % Chloride 109 H (98-107) mmol/L Glucose 102 H (74-99) mg/dL Iron 25 L (65-175) ug/dL Iron Saturation 8.50 L (15.00-50.00) ALT 20 L (21-72) U/L Microbiology - Last 24 Hours (Table) 04/14/18 14:51 Gram Stain - Preliminary Aspirate Body Fluid Culture - Preliminary Presumptive Staph aureus 04/11/18 12:40 Blood Culture - Preliminary Blood No Growth after 96 hours Assessment and Plan Assessment: Chronic wound lower extremity Plan: Aspirate cultures reveal presumptive staph aureus, and patient to be discharged for outpatient antibiotics under the care of Dr. Silverman.
[2018-04-17] MEDS ORDERED: VANCOMYCIN TROUGH DUE 1 EACH MISC MISCELLANE ONE (06:00)
== END 2018-04-16 17:46 | disposition home or self-care (01) | DRG 863 ==
LOC: EC 11:21 → 3NMEDONC 14:43
PROVIDERS: ADMIT Internal Medicine; ATTEND Internal Medicine
PROC: 02HV33Z Insertion of Infusion Device into Superior Vena Cava, Percutaneous Approach (ICD-10-PCS; principal; 2018-04-15 14:16)
DX: T81.42XA Infection following a procedure, deep incisional surgical site, initial encounter (principal); M86.172 Other acute osteomyelitis, left ankle and foot; L03.032 Cellulitis of left toe; I25.10 Atherosclerotic heart disease of native coronary artery without angina pectoris; E78.5 Hyperlipidemia, unspecified; G47.33 Obstructive sleep apnea (adult) (pediatric); D50.9 Iron deficiency anemia, unspecified; A49.01 Methicillin susceptible Staphylococcus aureus infection, unspecified site; N40.0 Benign prostatic hyperplasia without lower urinary tract symptoms; I71.9 Aortic aneurysm of unspecified site, without rupture; Z96.1 Presence of intraocular lens; Z96.652 Presence of left artificial knee joint; Z86.19 Personal history of other infectious and parasitic diseases; Z99.89 Dependence on other enabling machines and devices; Z98.1 Arthrodesis status; Z98.42 Cataract extraction status, left eye; Z98.41 Cataract extraction status, right eye; Z87.891 Personal history of nicotine dependence; Z80.0 Family history of malignant neoplasm of digestive organs; Z79.82 Long term (current) use of aspirin; Z79.899 Other long term (current) drug therapy; Z79.1 Long term (current) use of non-steroidal anti-inflammatories (NSAID); Z79.891 Long term (current) use of opiate analgesic; Z88.5 Allergy status to narcotic agent; Z90.49 Acquired absence of other specified parts of digestive tract
CPT/HCPCS: 36415; 36569; 76937; 77001; 78315; 80053; 80202; 82728; 83540; 83550; 83605; 85025; 85610; 86140; 87040; 87070; 87077; 87186; 87205; 96361; 96365; 96367; 99284

== ENCOUNTER 2018-06-01 11:38 | Emergency (ER) | payer MEDICARE ==
[2018-06-01 11:45] VITALS: RESP 18
[2018-06-01] MEDS ORDERED: SODIUM CHLORIDE 0.9% 1,000 ML IV STA (12:09)
--- NOTE | 2018-06-01 12:23 | ED ---
General Adult HPI <Lon Pappas - Last Filed: 06/01/18 14:06> - General Source: patient, RN notes reviewed, old records reviewed Mode of arrival: ambulatory Limitations: no limitations <Jose Lorenz - Last Filed: 06/04/18 12:27> - General Chief complaint: Extremity Injury, Lower Stated complaint: L Great Toe swollen - History of Present Illness Initial comments: 77-year-old male patient past medical history of hypertension, hyperlipidemia, right bunionectomy, L postsurgical wound infection presents to ED with erythema , edema of left hallux and surrounding area. Patient had a bunionectomy performed by Dr. Villa in january 2018 approximately 7 weeks ago patient developed a wound infection. Patient was already care of infectious disease physician Dr. Silverman and received IV abx for the last 6 weeks. Pt was given IV daptomycin. Patient also followed by the wound clinic. Patient was discharged from the wound clinic this past Thursday. On Thursday patient went to [employer], did lots of walking, more exertion than he had previously done on his foot. Patient notices redness swelling of left hallux after physical exertion. Patient states that this erythema and edema has persisted until today. Patient denies all other symptoms. Patient denies nausea vomiting diarrhea, fever chills, chest pain, shortness of breath, abdominal pain, dysuria. Patient is ambulatory. Systemic: Pt denies fatigue, myalgia, fever/chills, rash. Pt denies weakness, night sweats, weight loss. Neuro: Pt denies headache, visual disturbances, syncope or pre-syncope. HEENT: Pt denies ocular discharge or irritation, otalgia, rhinorrhea, pharyngitis or notable lymphadenopathy. Cardiopulmonary: Pt denies chest pain, SOB, heart palpitations, dyspnea on exertion. Abdominal/GI: Pt denies abdominal pain, n/v/d. : Pt denies dysuria, burning w/ urination, frequency/urgency. Denies new onset urinary or bowel incontinence. MSK: Pt denies myalgia, loss of strength or function in extremities. Neuro: Pt denies new onset weakness, paresthesias. (Jose Lorenz) - Related Data Home Medications Medication Instructions Recorded Confirmed Acetaminophen Tab [Tylenol] 650 mg PO Q4H PRN 10/27/16 05/25/18 Aspirin [Adult Low Dose Aspirin EC] 81 mg PO DAILY 10/27/16 05/25/18 Losartan [Cozaar] 50 mg PO DAILY 10/27/16 05/25/18 Simvastatin [Zocor] 20 mg PO HS 10/27/16 05/25/18 DAPTOmycin [Cubicin] 500 mg IV DAILY 05/25/18 05/25/18 Previous Rx's Medication Instructions Recorded Naproxen Sodium [Aleve] 220 mg PO Q12HR #14 tab 12/11/16 Ferrous Sulfate [Iron (65 MG 325 mg PO BID #60 tab 04/16/18 Elemental)] Multivitamins, Thera [Multivitamin 1 each PO DAILY@1200 #30 tab 04/16/18 (formulary)] Allergies Allergy/AdvReac Type Severity Reaction Status Date / Time morphine Allergy Severe Itching Verified 06/01/18 11:42 ceftriaxone [From Rocephin] Allergy Rash/Hives Verified 06/01/18 11:42 ertapenem [From Invanz] Allergy Itching Verified 06/01/18 11:42 hydrocodone [From Vicodin] Allergy Itching Verified 06/01/18 11:42 Review of Systems ROS Other: All systems not noted in ROS Statement are negative. <Lon Pappas - Last Filed: 06/01/18 14:06> ROS Other: All systems not noted in ROS Statement are negative. <Jose Lorenz - Last Filed: 06/04/18 12:27> ROS Statement: Those systems with pertinent positive or pertinent negative responses have been documented in the HPI. Past Medical History Past Medical History: Coronary Artery Disease (CAD), Hyperlipidemia, Prostate Disorder, Sleep Apnea/CPAP/BIPAP Additional Past Medical History / Comment(s): Aortic aneurysm (small), ALEJANDRA with CPAP, muscle spasms, benign polyps, BPH, possible nephrolithiaisis, sinus problems History of Any Multi-Drug Resistant Organisms: None Reported Past Surgical History: Appendectomy, Back Surgery, Heart Catheterization, Joint Replacement, Orthopedic Surgery, Tonsillectomy Additional Past Surgical History / Comment(s): lumbar and cervical fusions with last cervical fusion 11/05/16, left knee replaced, guera rotator cuff, guera cataract sx with implants, cardiac cath-treated medically, EGD/colonoscopy/ polypectomies, R great toe with pin, bilateral tennis elbow surgery, left foot bunionectomy 01/28/18 Past Anesthesia/Blood Transfusion Reactions: No Reported Reaction Past Psychological History: No Psychological Hx Reported Smoking Status: Former smoker Past Alcohol Use History: Occasional Past Drug Use History: None Reported - Past Family History Mother Family Medical History: Cancer Additional Family Medical History / Comment(s): Mother of colon cancer at the age of 75yrs. Father Family Medical History: Chest Pain / Angina, Respiratory Disorder Additional Family Medical History / Comment(s): Father had black lung (worked in [employer]). He at the age of 94 yrs. <Jose Lorenz - Last Filed: 06/04/18 12:27> General Exam <Lon Pappas - Last Filed: 06/01/18 14:06> Limitations: no limitations <Jose Lorenz - Last Filed: 06/04/18 12:27> - General Exam Comments Initial Comments: Constitutional: NAD, AOX3, Pt has pleasant affect. HEENT: NC/AT, trachea midline, neck supple, no lymphadenopathy. Posterior pharynx non erythematous, without exudates. External ears appear normal, without discharge. Mucous membranes moist. Eyes PERRLA, EOM intact. There is no scleral icterus. No pallor noted. Cardiopulmonary: RRR, no murmurs, rubs or gallops, no JVD noted. Lungs CTAB in anterior and posterior york. No peripheral edema. Abdominal exam: Abdomen soft and non-distended. Abdomen non-tender to palpation in all 4 quadrants. Bowel sounds active in LLQ. No hepatosplenomegaly. No ecchymosis Neuro: CN II-XII grossly intact. No nuchal rigidity. MSK: Left mildly erythematous, edematous, hallux with healed ulceration, localized erythema. No discharge. No posterior calf tenderness bilaterally, homans sign negative bilaterally. Posterior tibialis and radial pulse +2 bilaterally. Sensation intact in upper and lower extremities. Full active ROM in upper and lower extremities, 5/5 strength. Patient is ambulatory. (Jose Lorenz) Course <Lon Pappas - Last Filed: 06/01/18 14:06> <Jose Lorenz - Last Filed: 06/04/18 12:27> Vital Signs 06/01/18 06/01/18 11:42 15:46 Temperature 97.9 F 98.2 F Pulse Rate 74 71 Respiratory 18 18 Rate Blood Pressure 111/69 116/78 O2 Sat by Pulse 95 98 Oximetry - Reevaluation(s) Reevaluation #1: 06/01/18 14:06 EMRE supervision: I proceeded a [id number] evaluation the patient and did inspect the patient's left foot there is evidence of cellulitis of the right great toe laceration increased localized temperature. The patient does state he looks consistent with his prior infection. He just finished IV antibiotics 4 days ago. He does state he was walking around he went to [employer] 2 days ago he woke up yesterday morning with the foot inflamed and red again looking as it did with his prior infection. Patient's had no fevers chills or sweats his lab work is within normal limits the x-ray shows the hardware with no evidence of osteomyelitis at this time. I did have a long discussion with the patient has regarding the findings and recommendations for admission for IV antibiotics. Patient does not want be admitted. He will prefer to follow up outpatient tomorrow. He will receive a dose of daptomycin prior to his discharge as he was just on this. He will follow-up first thing in the morning with wound care and is any problems she will return this afternoon or this evening if needed. This does seem reasonable at this time. ( Lon Pappas) Medical Decision Making - Lab Data Result diagrams: 06/01/18 12:38 06/01/18 12:38 <Lon Pappas - Last Filed: 06/01/18 14:06> - Lab Data Result diagrams: 06/01/18 12:38 06/01/18 12:38 <Jose Lorenz - Last Filed: 06/04/18 12:27> - Medical Decision Making 77-year-old male patient past medical history of hypertension, hyperlipidemia, right bunionectomy, L postsurgical wound infection presents to ED with erythema , edema of left hallux and surrounding area. Patient had a bunionectomy performed by Dr. Villa in january 2018 approximately 7 weeks ago patient developed a wound infection. Patient was already care of infectious disease physician Dr. Silverman and received IV abx for the last 6 weeks. Pt was given IV daptomycin. Patient also followed by the wound clinic. Patient was discharged from the wound clinic this past Thursday. On Thursday patient went to [employer], did lots of walking, more exertion than he had previously done on his foot. Patient notices redness swelling of left hallux after physical exertion. Patient states that this erythema and edema has persisted until today. Physical exam displayed Left mildly erythematous, edematous, hallux with healed ulceration, localized erythema. No discharge. Laboratory investigations were conducted, CBC displayed no leukocytosis. CMP was non- impressive. Lactic acid was within normal limits. Patient vital signs stable afebrile. Plain film of left foot did not display any evidence for acute osteomyelitis, no significant change from prior x-ray. Plain film of left ankle displayed no radiographic evidence for acute osteomyelitis, no significant change from prior x-ray. Long discussion was initiated with patient , Dr. Pappas and myself. Discussed with patient that erythema and edema was concerning for potential recurrence of infection. Patient verbalizes understanding. Explained to patient that we would like to admit him to hospital for IV antibiotics. Patient stated that he did not wish to be admitted in the hospital, declined. Patient given 750 mg of daptomycin in ED. Dosing was discussed with Pharm Zarina Hernandez. Patient assured that he'll follow-up first thing in the morning with Dr. Silverman and the wound clinic. Patient given strict return precautions. Patient to return to ED if any new signs symptoms develop including worsening erythema, edema and foot, fever chills, nausea vomiting diarrhea, any other new symptoms. Patient to also follow-up with his primary care physician one to 2 days. Patient evaluated and discussed at length with Dr. Pappas. Spoke with pt via phone on 06/03/18 for close follow up. Pt stated that they had attempted to f/u and were in contact with wound clinic / Dr silverman office but had not yet been evaluated by Physician, stated they had appt on 06/04/18 and were taking a PO abx. Recommended pt to present urgently to ED for evaluation. Pt verbalized understanding. (Jose Lorenz) - Lab Data Lab Results 06/01/18 06/01/18 06/01/18 Range/Units 12:38 12:38 12:38 WBC 8.9 (3.8-10.6) k/uL RBC 4.87 (4.30-5.90) m/uL Hgb 13.3 (13.0-17.5) gm/dL Hct 41.5 (39.0-53.0) % MCV 85.2 (80.0-100.0) fL MCH 27.3 (25.0-35.0) pg MCHC 32.0 (31.0-37.0) g/dL RDW 14.7 (11.5-15.5) % Plt Count 158 (150-450) k/uL Neutrophils % 68 % Lymphocytes % 20 % Monocytes % 5 % Eosinophils % 4 % Basophils % 1 % Neutrophils # 6.1 (1.3-7.7) k/uL Lymphocytes # 1.8 (1.0-4.8) k/uL Monocytes # 0.4 (0-1.0) k/uL Eosinophils # 0.4 (0-0.7) k/uL Basophils # 0.1 (0-0.2) k/uL Sodium 139 (137-145) mmol/L Potassium 4.6 (3.5-5.1) mmol/L Chloride 107 (98-107) mmol/L Carbon Dioxide 23 (22-30) mmol/L Anion Gap 9 mmol/L BUN 24 H (9-20) mg/dL Creatinine 0.91 (0.66-1.25) mg/dL Est GFR (CKD-EPI)AfAm >90 (>60 ml/min/1.73 sqM) Est GFR (CKD-EPI)NonAf 81 (>60 ml/min/1.73 sqM) Glucose 87 (74-99) mg/dL Plasma Lactic Acid Valeriy 1.2 (0.7-2.0) mmol/L Calcium 9.7 (8.4-10.2) mg/dL Total Bilirubin 0.7 (0.2-1.3) mg/dL AST 26 (17-59) U/L ALT 38 (21-72) U/L Alkaline Phosphatase 58 (38-126) U/L Total Protein 7.1 (6.3-8.2) g/dL Albumin 3.9 (3.5-5.0) g/dL Disposition <Lon Pappas - Last Filed: 06/01/18 14:06> Is patient prescribed a controlled substance at d/c from ED?: No Time of Disposition: 15:52 <Jose Lorenz - Last Filed: 06/04/18 12:27> Clinical Impression: Erythema of foot Disposition: HOME SELF-CARE Condition: Good Instructions: Bunionectomy (DC) Additional Instructions: Patient to adhere to previously discussed treatment plan and will take medication(s) as directed. Patient to follow up with PCP in 1-2 days. Patient to return to ED if symptoms do not improve. Referrals: Em Em MD [Primary Care Provider] - 1-2 days
[2018-06-01 13:20] LABS: Basophils # (A) 0.1 k/uL (0-0.2); Basophils % (A) 1 %; Eosinophils # (A) 0.4 k/uL (0-0.7); Eosinophils % (A) 4 %; HCT 41.5 % (39.0-53.0); HGB 13.3 gm/dL (13.0-17.5); Lymphocytes # (A) 1.8 k/uL (1.0-4.8); Lymphocytes % (A) 20 %; MCH 27.3 pg (25.0-35.0); MCV 85.2 fL (80.0-100.0); Mean Platelet Volume 7.3; Monocytes # (A) 0.4 k/uL (0-1.0); Monocytes % (A) 5 %; Neutrophils # (A) 6.1 k/uL (1.3-7.7); Neutrophils % (A) 68 %; Platelet Count 158 k/uL (150-450); RBC 4.87 m/uL (4.30-5.90); RDW 14.7 % (11.5-15.5); WBC 8.9 k/uL (3.8-10.6)
[2018-06-01 13:33] LABS: ALT 38 U/L (21-72); AST 26 U/L (17-59); Albumin 3.9 g/dL (3.5-5.0); Alkaline Phosphatase 58 U/L (38-126); Anion Gap 9 mmol/L; Blood Urea Nitrogen 24 mg/dL (9-20); Calcium 9.7 mg/dL (8.4-10.2); Carbon Dioxide 23 mmol/L (22-30); Chloride 107 mmol/L (98-107); Glucose 87 mg/dL (74-99); Potassium 4.6 mmol/L (3.5-5.1); Sodium 139 mmol/L (137-145); Total Bilirubin 0.7 mg/dL (0.2-1.3); Total Protein 7.1 g/dL (6.3-8.2)
--- NOTE | 2018-06-01 13:38 | XR ---
EXAMINATION TYPE: XR ankle limited LT, XR foot complete LT DATE OF EXAM: 06/01/2018 CLINICAL HISTORY: Infection after bunion surgery in January. TECHNIQUE: Frontal and lateral images of the left ankle and foot are obtained. Additional oblique chasidy ges left foot is acquired. COMPARISON: Prior left foot x-ray April 11, 2018. Prior 3-phase bone scan April 13, 2018. FINDINGS: There is no acute fracture/dislocation evident in the left ankle. The ankle mortise appea rs within normal limits. Mild diffuse subcutaneous edema is present without significant swelling. The re is large inferior calcaneal spur redemonstrated. Posterior vascular calcification is noted. Images of the left foot redemonstrate fusion plating and screw first metatarsal phalangeal joint whic h is stable and satisfactory in alignment. Some ossific fusion or arthrodesis is noted similar to andrew or. There is marked flexion in the toes present. No new suspicious cortical destruction or periosteal reaction is seen. Accessory ossicle near the base of navicular bone is redemonstrated. IMPRESSION: There is no convincing radiographic evidence for acute osteomyelitis. No significant teodora nge from prior x-ray. Note is made of prior positive more sensitive three-phase bone scan.
[2018-06-01] MEDS ORDERED: DAPTOmycin 750 MG in SODIUM CHLORIDE 0.9% 50 ML IVPB STA (14:09)
[2018-06-01 15:48] VITALS: BP 116/78; PULSE 71; TEMP 98.2
== END 2018-06-01 15:58 | disposition home or self-care (01) ==
LOC: EC 11:38
DX: L58.9 Radiodermatitis, unspecified (principal); M79.89 Other specified soft tissue disorders; D72.829 Elevated white blood cell count, unspecified; I25.10 Atherosclerotic heart disease of native coronary artery without angina pectoris; E78.5 Hyperlipidemia, unspecified; G47.33 Obstructive sleep apnea (adult) (pediatric); Z99.89 Dependence on other enabling machines and devices; N40.0 Benign prostatic hyperplasia without lower urinary tract symptoms; Z87.891 Personal history of nicotine dependence; Z79.82 Long term (current) use of aspirin; Z79.899 Other long term (current) drug therapy; Z88.1 Allergy status to other antibiotic agents; Z88.5 Allergy status to narcotic agent; Z88.8 Allergy status to other drugs, medicaments and biological substances; Z95.818 Presence of other cardiac implants and grafts; Z96.652 Presence of left artificial knee joint
CPT/HCPCS: 36415; 80053; 83605; 85025; 87040; 73600; 73630; 99284; 96365; 96361; J0878

== ENCOUNTER → 2018-06-09 | Outpatient (CLI) | payer MEDICARE ==
[2018-06-09 14:44] LABS: Basophils % (A) 1 %; Eosinophils # (A) 0.3 k/uL (0-0.7); Eosinophils % (A) 5 %; HCT 39.1 % (39.0-53.0); HGB 12.6 gm/dL (13.0-17.5); Lymphocytes # (A) 1.4 k/uL (1.0-4.8); Lymphocytes % (A) 24 %; MCH 27.6 pg (25.0-35.0); MCHC 32.2 g/dL (31.0-37.0); MCV 85.8 fL (80.0-100.0); Monocytes # (A) 0.2 k/uL (0-1.0); Monocytes % (A) 4 %; Neutrophils # (A) 3.7 k/uL (1.3-7.7); Neutrophils % (A) 65 %; Platelet Count 168 k/uL (150-450); RBC 4.55 m/uL (4.30-5.90); RDW 14.7 % (11.5-15.5); WBC 5.8 k/uL (3.8-10.6)
[2018-06-09 15:48] LABS: Erythrocyte Sedimentation Rate 23 mm/hr (0-15)
[2018-06-09 19:23] LABS: ALT 26 U/L (10-49); AST 22 U/L (14-35); Albumin/Globulin Ratio 2.05 (1.20-2.10); Alkaline Phosphatase 60 U/L (41-126); C Reactive Protein <0.4 mg/dL (0.0-0.8); Calcium 9.1 mg/dL (8.7-10.3); Carbon Dioxide 26.7 mmol/L (21.6-31.8); Chloride 106 mmol/L (96-109); Glucose 131 mg/dL (70-110); Potassium 4.1 mmol/L (3.5-5.5); Sodium 138 mmol/L (135-145); Total Bilirubin 0.3 mg/dL (0.3-1.2); Total Protein 6.1 g/dL (6.2-8.2)
== END | disposition home or self-care (01) ==
LOC: LABWHC1 13:08
PROVIDERS: ATTEND Internal Medicine Infectious Disease
DX: M86.172 Other acute osteomyelitis, left ankle and foot (principal)
CPT/HCPCS: 36415; 80053; 85025; 85652; 86140

== ENCOUNTER → 2018-07-07 | Outpatient (CLI) | payer MEDICARE ==
[2018-07-07 12:15] LABS: Basophils % (A) 0 %; Eosinophils # (A) 0.2 k/uL (0-0.7); Eosinophils % (A) 3 %; HCT 33.6 % (39.0-53.0); HGB 10.8 gm/dL (13.0-17.5); Lymphocytes # (A) 1.4 k/uL (1.0-4.8); Lymphocytes % (A) 27 %; MCH 27.7 pg (25.0-35.0); MCHC 32.2 g/dL (31.0-37.0); MCV 85.9 fL (80.0-100.0); Mean Platelet Volume 7.7; Monocytes # (A) 0.2 k/uL (0-1.0); Monocytes % (A) 4 %; Neutrophils # (A) 3.3 k/uL (1.3-7.7); Neutrophils % (A) 63 %; RBC 3.92 m/uL (4.30-5.90); RDW 14.4 % (11.5-15.5); WBC 5.2 k/uL (3.8-10.6)
[2018-07-07 12:19] LABS: ALT 57 U/L (21-72); AST 39 U/L (17-59); Albumin 4.1 g/dL (3.5-5.0); Albumin/Globulin Ratio 1.5; Alkaline Phosphatase 44 U/L (38-126); Anion Gap 5 mmol/L; Blood Urea Nitrogen 27 mg/dL (9-20); Calcium 9.6 mg/dL (8.4-10.2); Carbon Dioxide 29 mmol/L (22-30); Chloride 107 mmol/L (98-107); Globulin 2.8 g/dL; Glucose 102 mg/dL (74-99); Potassium 4.7 mmol/L (3.5-5.1); Sodium 141 mmol/L (137-145); Total Bilirubin 0.4 mg/dL (0.2-1.3); Total Protein 6.9 g/dL (6.3-8.2)
[2018-07-07 12:45] LABS: Platelet Count 80 k/uL (150-450)
== END | disposition home or self-care (01) ==
LOC: LABWHC1 11:28
PROVIDERS: ATTEND Family Medicine
DX: D69.6 Thrombocytopenia, unspecified (principal); K92.1 Melena
CPT/HCPCS: 36415; 80053; 82272; 85025

== ENCOUNTER → 2018-07-12 | Outpatient (CLI) | payer MEDICARE ==
[2018-07-12 15:01] LABS: Basophils # (A) 0.1 k/uL (0-0.2); Basophils % (A) 1 %; Eosinophils # (A) 0.3 k/uL (0-0.7); Eosinophils % (A) 3 %; HCT 30.9 % (39.0-53.0); HGB 10.6 gm/dL (13.0-17.5); Lymphocytes # (A) 2.4 k/uL (1.0-4.8); Lymphocytes % (A) 27 %; MCH 28.7 pg (25.0-35.0); MCHC 34.3 g/dL (31.0-37.0); MCV 83.5 fL (80.0-100.0); Mean Platelet Volume 7.4; Monocytes # (A) 0.4 k/uL (0-1.0); Monocytes % (A) 5 %; Neutrophils # (A) 5.7 k/uL (1.3-7.7); Neutrophils % (A) 63 %; RDW 14.9 % (11.5-15.5)
[2018-07-12 15:09] LABS: Platelet Count 166 k/uL (150-450)
[2018-07-12 21:29] LABS: Anion Gap 10.8 mmol/L (4.00-12.00); Calcium 9.1 mg/dL (8.7-10.3); Carbon Dioxide 27.2 mmol/L (21.6-31.8); Potassium 4.6 mmol/L (3.5-5.5)
== END | disposition home or self-care (01) ==
LOC: LABWHC1 13:20
PROVIDERS: ATTEND Internal Medicine Infectious Disease
DX: M86.172 Other acute osteomyelitis, left ankle and foot (principal)
CPT/HCPCS: 36415; 80048; 85025

== ENCOUNTER 2018-07-14 06:46 | Day surgery (SDC) | payer MEDICARE ==
[2018-07-09 14:54] VITALS: BMI 31.6
[~2018-07-14 06:46] MED LIST changes: -BACITRACIN 50,000 UNIT, POLYMYXIN B 500,000 UNIT in SODIUM CHLORIDE 0.9% IRRIGATIO 1,00... IRRIGATION ONE; -FAMOTIDINE 20 MG/2 ML VIAL IV PRN; -HYDROmorphone 1 MG/ML 1 ML SYRINGE IVP PRN; -MIDAZOLAM 2 MG/2 ML VIAL IV PRN; +ONDANSETRON 4 MG/2 ML VIAL IVP ONE; -ONDANSETRON 4 MG/2 ML VIAL IVP PRN; -ceFAZolin 2 GM in SODIUM CHLORIDE 0.9% 100 ML IVPB ONE; +ceFAZolin IN SWFI 2 GM/20 ML SYRINGE IVP ONE; +fentaNYL (PF) 50 MCG/ML 2 ML AMP IV PRN
[2018-07-14] MEDS ORDERED: GLYCOPYRROLATE 0.2 MG/ML 2 ML VIAL ONE (08:31)
[2018-07-14] MEDS ORDERED: NEOSTIGMINE 1 MG/ML 10 ML VIAL ONE (08:31)
[2018-07-14] MEDS ORDERED: LIDOCAINE 1% INJ 10MG/ML (20 ML MDV) ONE (08:31)
[2018-07-14] MEDS ORDERED: fentaNYL (PF) 50 MCG/ML 2 ML AMP ONE (08:31)
[2018-07-14] MEDS ORDERED: ePHEDrine SULFATE/0.9% NACL/PF 50 MG/5 ML SYRINGE IV ONE (08:31)
[2018-07-14] MEDS ORDERED: PROPOFOL 10 MG/ML 20 ML VIAL IV ONE (08:31)
[2018-07-14] MEDS ORDERED: ROCURONIUM BROMIDE 10 MG/ML 10 ML VIAL IV ONE (08:31)
[2018-07-14] MEDS ORDERED: MIDAZOLAM 2 MG/2 ML VIAL ONE (08:31)
[2018-07-14] MEDS ORDERED: BUPIVACAINE (PF) 0.25% 30 ML VIAL SQ ONE ×2 (09:00)
[2018-07-14] MEDS ORDERED: LACTATED RINGERS 1,000 ML IV ONE (09:24)
--- NOTE | 2018-07-14 09:41 | P.OP ---
Date of Procedure: 07/14/18 Preoperative Diagnosis: 1. Deep infection following left first MTP fusion Postoperative Diagnosis: 1. Left first MTP infected nonunion Procedure(s) Performed: 1. Left foot deep hardware removal Anesthesia: LINDSEY Surgeon: Sandip Villa Compact Assembler #1: Alda Daniels Estimated Blood Loss (ml): 5 IV fluids (ml): 650 Pathology: other (Deep cultures) Condition: stable Disposition: PACU Indications for Procedure: The patient is a very pleasant 77-year-old male who is well-known to me as a patient. The patient initially presented to my office May with a complaint of left ankle pain. He had a corticosteroid injection as a diagnostic modality in his left ankle. He also complained of an arthritic hallux valgus and requested surgery for this after having failed nonsurgical treatment. He had an uncomplicated first MTP fusion. At the follow-up 2 weeks after surgery he complained that the long surgery was performed as he was under the impression that he was having ankle surgery. Unfortunately in the early postoperative period 3 weeks from surgery he went hunting and weight are boots. He developed a wound dehiscence and infection. Over the next several months he had recurrent infections requiring several admissions to the hospital, and infectious disease consultation and antibiotics. He has not tolerated antibiotics well and has had issues with his platelets following linezolid administration. He has clinical and x-ray evidence of healing of the fusion in the office. In direct consultation with Dr. Silverman we discussed continued suppressive antibiotics versus removing the hardware. The patient and his are hoping to get off of antibiotics and have requested a hardware removal. They're fully aware of the possibility that the fusion has gone on to a nonunion and what this would entail. A lengthy discussion on the potential risks and complications of surgery including but not limited to risk of anesthesia, superficial infection, deep infection, continued pain from a symptomatic nonunion, damage to local blood vessels or nerves, spread of infection, and dissemination of the infection and possibly loss of life or limb. Operative Findings: Is no evidence of deep infection. There is no purulence. There was some motion at the first MTP joint suggestive of a nonunion. Description of Procedure: The patient was identified in preoperative holding and the correct left leg was marked with my initials. I reviewed the consent form with the patient and his . All their questions were answered. The patient was then brought back to the operating room by anesthesia. He was positioned on the or table where general anesthetic and preoperative antibiotics were administered. All bony prominences were well-padded. A tourniquet was applied to the proximal aspect of the left leg. Left leg was then prepped and draped in the standard sterile fashion. Prior to starting surgery timeout was performed identifying the correct patient, operative extremity, and procedure. The patient's leg was then elevated, exsanguinated with an Esmarch bandage, and the tourniquet was inflated to 250 mmHg. I began by making an incision directly over the scar on the first MTP joint. Dissection was carried down carefully through subcutaneous tissue. The capsule over the first MTP joint was elevated. The plate and screws were identified and carefully removed. There was no evidence of purulence. There was some clear serous fluid that was swabbed from the screw tracts and around the plate sent for cultures. Deep tissue was also excised and sent for cultures. The wound was thoroughly irrigated using sterile saline and cystoscopy tubing. The joint appeared to be healthy with no evidence of deep purulence. There was a small amount of motion suggestive of an infected nonunion at the MTP joint. Final fluoroscopic images were taken showing complete removal of all hardware. The joint was once again thoroughly irrigated. The wound was closed in layers using monofilament suture. Following closure of the wound I verified that all instrument, sponge, and sharp counts were correct. 10 mL's of half percent Marcaine was injected around the incision. A sterile dressing consisting of brown quarter and stretchy Steri-Strips, Betadine soaked Adaptic, and 4 x 4 was applied. The leg was wrapped with a web roll and Gurdeep wrap. The tourniquet was let down. The patient was then transferred from the OR table to the [facility]. A tall cam boot was placed. He was then brought to PACU without the procedure well. Plan: Patient is going to be discharged home as an outpatient. He can weight- bear as tolerated in his protective boot. He is to leave his dressing on for 2 days. He is then to commence dressing changes. We will contact infectious disease to get the recommendations on long-term suppressive antibiotics given his history of infection and intolerance to previous antibiotic regimens.
[2018-07-14 09:55] VITALS: TEMP 97.3
[2018-07-14 10:03] VITALS: RESP 16
--- NOTE | 2018-07-14 10:03 | FL ---
Fluoroscopy History: HARDWARE REMOVAL 1 image scanned. Hardware removal LT great toe.
[2018-07-14] MEDS: fentaNYL (PF) 50 MCG/ML 2 ML AMP IVP PRN ×2 (10:11→10:15)
[2018-07-14] MEDS ORDERED: HYDROcodone/APAP 5-325MG 1 EACH TAB PO ONE (11:38)
[2018-07-14 11:58] VITALS: BP 131/68; PULSE 76
== END 2018-07-14 14:00 | disposition home or self-care (01) ==
LOC: OR 06:46
PROVIDERS: ATTEND Orthopaedic Surgery
DX: T84.59XA Infection and inflammatory reaction due to other internal joint prosthesis, initial encounter (principal); T84.84XA Pain due to internal orthopedic prosthetic devices, implants and grafts, initial encounter; M96.0 Pseudarthrosis after fusion or arthrodesis; M19.072 Primary osteoarthritis, left ankle and foot; H91.92 Unspecified hearing loss, left ear; E78.5 Hyperlipidemia, unspecified; I11.9 Hypertensive heart disease without heart failure; D64.9 Anemia, unspecified; I71.9 Aortic aneurysm of unspecified site, without rupture; I25.10 Atherosclerotic heart disease of native coronary artery without angina pectoris; G47.33 Obstructive sleep apnea (adult) (pediatric); N40.0 Benign prostatic hyperplasia without lower urinary tract symptoms; Z79.1 Long term (current) use of non-steroidal anti-inflammatories (NSAID); Z79.82 Long term (current) use of aspirin; Z79.899 Other long term (current) drug therapy; Z88.5 Allergy status to narcotic agent; Z88.1 Allergy status to other antibiotic agents; Z87.891 Personal history of nicotine dependence
CPT/HCPCS: 87070; 87205; 87075; 73660; 20680; J2250; J2710; J2405; J2001; J3010; J2704; J0690

== ENCOUNTER → 2019-03-21 | Outpatient (CLI) | payer MEDICARE ==
--- NOTE | 2019-03-21 15:06 | MR ---
EXAMINATION TYPE: MR shoulder RT wo con DATE OF EXAM: 03/21/2019 COMPARISON: Outside images of the right shoulder dated 03/07/2019 HISTORY: Right shoulder pain TECHNIQUE: Multiplanar, multisequence imaging of the right shoulder is performed without contrast. FINDINGS: Motion artifact is seen throughout the examination limiting evaluation. Susceptibility beau fact from prior rotator cuff repair is seen near the deltoid and in the humeral head. Rotator Cuff: There is a partial thickness bursal surface tear of the supraspinatus measuring 0.5 x 1 .6 cm. This is low-grade. There is also an articular surface tear of the supraspinatus and its enrober tender ior insertional fibers measuring 0.4 x 0.8 cm. As is also low-grade partial-thickness. There is an elongated intrasubstance tear of infraspinatus measuring 0.3 x 1.5 cm and anterior insert ional fiber articular surface low-grade partial-thickness tear measuring 0.4 x 0.5 cm. This is an art icular surface tear. There is moderate tendinopathy of the infraspinatus and supraspinatus. There is a small amount of flu id articulating between the supraspinatus and infraspinatus appearing as an intrasubstance tear of th e infraspinatus measuring 1.2 x 0.3 cm. The teres minor and subscapularis are unremarkable in signal and morphology. Acromioclavicular Joint: There is moderate acromioclavicular arthropathy seen with small adjacent cys ts. Acromioclavicular arthropathy is demonstrated as small marginal osteophytes, capsular hypertrophy and small downward projecting osteophytes. No significant downsloping of the acromion. No significan t supraspinatus impingement at this time. Glenohumeral Joint: There is glenohumeral chondral irregularity and mild joint space narrowing. Few s ubcortical cysts of the humeral head. Labrum: The labrum appears grossly intact given limitation of non-arthrogram study. Inferior labrum i s diminutive indicative of labral degeneration. Biceps Tendon: There is a split tear of the intra-articular portion of the biceps tendon with attenua tion indicative of severe tendinosis. Extra articular portion of the biceps tendon is located within the bicipital groove appropriately. Bone marrow signal: No focal abnormal marrow signal is appreciated. IMPRESSION: 1. Postsurgical change of the right shoulder with multiple partial-thickness tears of the rotator cuf f, possible re-tears although the prior MRI is not available for comparison. Partial-thickness bursal surface tear of the supraspinatus measures up to 1.6 cm, articular surface supraspinatus partial-thi ckness tear measures up to 0.8 cm, intrasubstance tear of the infraspinatus measures up to 1.5 cm wit h possible second intrasubstance tear situated between the supraspinatus and infraspinatus measuring up to 1.2 cm and low-grade partial-thickness tear of the anterior insertional fibers of the infraspin atus at the articular surface measuring up to 0.5 cm. 2. Split tear of the intra-articular portion of the long head of the biceps with severe tendinosis. 3. Moderate acromioclavicular arthropathy and mild glenohumeral arthropathy with chondrosis. 4. Labral degeneration of the inferior labrum.
== END | disposition home or self-care (01) ==
LOC: RADMRIMAIN 10:41
PROVIDERS: ATTEND Orthopaedic Surgery
DX: M75.111 Incomplete rotator cuff tear or rupture of right shoulder, not specified as traumatic (principal); S46.811A Strain of other muscles, fascia and tendons at shoulder and upper arm level, right arm, initial encounter; M19.011 Primary osteoarthritis, right shoulder; M94.8X1 Other specified disorders of cartilage, shoulder; M67.813 Other specified disorders of tendon, right shoulder; Z98.890 Other specified postprocedural states

== ENCOUNTER → 2020-02-28 | Outpatient (CLI) | payer MEDICARE ==
[2020-02-28 10:48] LABS: Appearance,Urine Clear (Clear); Bilirubin,Urine Negative (Negative); Blood,Urine Negative (Negative); Color,Urine Yellow; Glucose,Urine (UA) Negative (Negative); Ketones,Urine Negative (Negative); Leukocyte Esterase,Urine Negative (Negative); Nitrite,Urine Negative (Negative); PH, Urine 5.5 (5.0-8.0); Protein,Urine Trace (Negative); Specific Gravity,Urine 1.027 (1.001-1.035)
[2020-02-28 10:49] LABS: Basophils % (A) 1 %; Eosinophils # (A) 0.1 k/uL (0-0.7); Eosinophils % (A) 3 %; HCT 41.6 % (39.0-53.0); HGB 12.8 gm/dL (13.0-17.5); Lymphocytes # (A) 1.6 k/uL (1.0-4.8); Lymphocytes % (A) 29 %; MCHC 30.7 g/dL (31.0-37.0); Mean Platelet Volume 7.7; Monocytes # (A) 0.3 k/uL (0-1.0); Monocytes % (A) 5 %; Neutrophils # (A) 3.5 k/uL (1.3-7.7); Neutrophils % (A) 62 %; Platelet Count 146 k/uL (150-450); RBC 4.73 m/uL (4.30-5.90); RDW 13.9 % (11.5-15.5); WBC 5.6 k/uL (3.8-10.6)
[2020-02-28 17:35] LABS: Hemoglobin A1C 5.9 % (4.0-6.0)
[2020-02-28 18:20] LABS: African American GFR (CKD) 73.6 (60.0-200.0); Albumin 4.4 g/dL (3.80-4.90); Albumin/Globulin Ratio 2.2 (1.60-3.17); Anion Gap 9.5 mmol/L (4.00-12.00); BUN/Creat Ratio 18.18 Ratio (12.00-20.00); Calcium 9.5 mg/dL (8.7-10.3); Carbon Dioxide 27.5 mmol/L (21.6-31.8); Chol/HDL Ratio 4.27; LDL Cholesterol,Calculated 87.6 mg/dL (0.0-131.0); Magnesium 2.1 mg/dL (1.5-2.4); Non-African American GFR(CKD) 63.5 (60.0-200.0); Total Bilirubin 0.6 mg/dL (0.2-1.2); Total Protein 6.4 g/dL (6.2-8.2); VLDL Calculation 33.4 mg/dL (5.00-40.00)
== END | disposition home or self-care (01) ==
LOC: LABWHC1 10:01
PROVIDERS: ATTEND Family Medicine
DX: I10 Essential (primary) hypertension (principal); E78.5 Hyperlipidemia, unspecified; M13.0 Polyarthritis, unspecified; Z79.899 Other long term (current) drug therapy
CPT/HCPCS: 36415; 80053; 80061; 81003; 82550; 83036; 83615; 83735; 85025

== ENCOUNTER → 2020-04-17 | Outpatient (CLI) | payer MEDICARE ==
--- NOTE | 2020-04-17 12:06 | MR ---
EXAMINATION TYPE: MR knee RT wo con DATE OF EXAM: 04/17/2020 COMPARISON: 02/10/2020 HISTORY: Rt knee pain/injury TECHNIQUE: Multiplanar, multisequence imaging of the right knee is performed without IV contrast. FINDINGS: There is a significant narrowing of the medial compartment knee joint with evidence of grade III bertram dromalacia involving the articular cartilage. There is a pseudo extrusion of the medial meniscus with a complex tear involving the posterior horn and body of the medial meniscus. Linear tear involving t he anterior horn. Lateral mass meniscus demonstrates intrasubstance signal involving both the anterior and posterior ho rn suspicious for linear tears. The anterior cruciate, posterior cruciate, medial collateral, lateral collateral ligaments are intact . There is no evidence of significant marrow edema or contusion. Small amount of fluid is seen in the suprapatellar bursa. Retinaculum intact. There is thinning of the patellar cartilage particularly al lang the medial compartment compatible with grade II chondromalacia. Patellar and quadriceps tendons are intact. There is a tiny cyst within the popliteal fossa measuring approximately 1 cm. IMPRESSION: 1. Severe osteoarthritis with chondromalacia 2. Complex tear posterior horn and body medial meniscus with extension into the anterior horn. 3. Linear tears posterior and anterior horn lateral meniscus.
== END | disposition home or self-care (01) ==
LOC: RADMRIMAIN 10:08
PROVIDERS: ATTEND Orthopaedic Surgery
DX: S83.241A Other tear of medial meniscus, current injury, right knee, initial encounter (principal); S83.281A Other tear of lateral meniscus, current injury, right knee, initial encounter

== ENCOUNTER → 2020-04-19 | Outpatient (CLI) | payer MEDICARE | END | disposition home or self-care (01) | LOC: LABWHC1 13:48 | PROVIDERS: ATTEND Family Medicine | DX: Z20.828 Contact with and (suspected) exposure to other viral communicable diseases (principal); R05 Cough | CPT/HCPCS: U0003; C9803 ==

== ENCOUNTER → 2020-05-09 | Outpatient (CLI) | payer MEDICARE | END | disposition home or self-care (01) | LOC: LABWHC1 10:33 | PROVIDERS: ATTEND Nurse Practitioner Family | DX: Z20.828 Contact with and (suspected) exposure to other viral communicable diseases (principal) | CPT/HCPCS: U0003; C9803 ==

== ENCOUNTER → 2020-07-03 | Outpatient (CLI) | payer MEDICARE | END | disposition home or self-care (01) | LOC: LABPAT 11:51 | PROVIDERS: ATTEND Orthopaedic Surgery | DX: Z01.812 Encounter for preprocedural laboratory examination (principal) | CPT/HCPCS: 87070 ==

== ENCOUNTER → 2020-07-09 | Outpatient (CLI) | payer MEDICARE ==
--- NOTE | 2020-07-10 05:35 | CT ---
EXAMINATION TYPE: CT chest wo con DATE OF EXAM: 07/09/2020 COMPARISON: 12/11/2016 HISTORY: Cough x6 months, hx of exposure to asbestos. CT DLP: 504.9 mGycm Automated exposure control for dose reduction was used. Images were obtained from the thoracic inlet to the diaphragm without contrast. FINDINGS: There is no mediastinal adenopathy. There are a few paratracheal lymph nodes that measure less than 1 cm. There are no hilar masses. There is coronary artery calcification. Thoracic aorta is atheromatou s. 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 There are no hilar masses. There is no pleural effusion. There is no pericardial effusion. The lungs are clear of infiltrate. There is no evidence of a pulmonary mass. There are cysts on the right kidne y that measure up to 7 cm. There is some degenerative hypertrophic spurring in the thoracic spine. I see no compression fracture . Sternum is intact. The ribs are intact. IMPRESSION: Atherosclerotic vascular disease. No suspicious pulmonary mass. There is 4.4 cm aneurysm of the ascen ding aorta which is increased 2 mm compared to old exam. No evidence of any significant lung disease.
== END | disposition home or self-care (01) ==
LOC: RADCTMAIN 17:09
PROVIDERS: ATTEND Family Medicine
DX: I71.2 Thoracic aortic aneurysm, without rupture (principal); I25.10 Atherosclerotic heart disease of native coronary artery without angina pectoris; R05 Cough; Z77.090 Contact with and (suspected) exposure to asbestos
CPT/HCPCS: 71250

== ENCOUNTER 2020-07-24 08:34 | Observation (INO) | payer MEDICARE ==
[2020-07-19 14:58] VITALS: BMI 34.9
--- NOTE | 2020-07-23 09:43 | HP ---
HISTORY AND PHYSICAL CHIEF COMPLAINT: Right knee pain. HISTORY OF PRESENT ILLNESS: The patient is a 79-year-old retired gentleman who presents with right knee pain, worsening over the past 6 months. He notes his pain is 10/10. It was locking and giving out. He has tried a brace in addition to an injection without much relief. He has also tried medications. He notes daily pain significantly limits him. PAST MEDICAL HISTORY: Significant for reflux disease, hypercholesterolemia, and arthritis. PAST SURGICAL HISTORY: Significant for foot surgery, left total knee arthroplasty, right and left shoulder surgery, cervical fusion and lumbar fusion. CURRENT MEDICATIONS: 1. Famotidine. 2. Losartan. 3. Protonix. 4. Simvastatin. FAMILY HISTORY: Significant for cancer. SOCIAL HISTORY: Significant for previous tobacco use and social alcohol use. REVIEW OF SYSTEMS: Sixteen-point review of systems otherwise is reviewed and is noncontributory. ALLERGIES: He is allergic to ROCEPHIN, MORPHINE, VICODIN, INVANZ and LINEZOLID. PHYSICAL EXAMINATION: On examination, the patient is approximately 6 feet 1 inch, 235 pounds of endomorphic habitus. HEENT exam is nonfocal. Neck is supple. He has painless passive motion of the right hip. Straight leg raise is negative. Active motion right knee -10 to 115 degrees of flexion. He is tender about the medial joint line. He has a mild effusion. Collaterals are stable, Justin is negative, Vaishali's elicits medial pain. His distal neurovascular exam appears intact in the right lower extremity. Previous x-rays of the right knee obtained in the office show medial compartment osteoarthrosis. IMPRESSION: 1. Right knee osteoarthrosis. 2. Right knee medial meniscal tear. RECOMMENDATIONS: I talked to the patient at length regarding his condition and treatment options. At this point, he opts to proceed with surgery. We will plan to proceed with right total knee arthroplasty. Risks and benefits were discussed at length in layman's terms. We will institute DVT prophylaxis postoperatively. MMODL / IJN: [id number] /
[~2020-07-24 08:34] MED LIST changes: +ACETAMINOPHEN TAB 500 MG TAB PO PRN; -LACTATED RINGERS 1,000 ML IV SCH; -LIDOCAINE 1% 20 ML VIAL (10MG/ML) FOR IV START INTRADERMA PRN; -ONDANSETRON 4 MG/2 ML VIAL IVP ONE; +TRANEXAMIC ACID 1,000 MG in SODIUM CHLORIDE 0.9% 100 ML IVPB PRN; -ceFAZolin IN SWFI 2 GM/20 ML SYRINGE IVP ONE; -fentaNYL (PF) 50 MCG/ML 2 ML AMP IV PRN
[2020-07-24] MEDS ORDERED: ONDANSETRON 4 MG/2 ML VIAL ONE (09:08)
[2020-07-24] MEDS ORDERED: LACTATED RINGERS 1,000 ML IV ONE (09:52)
[2020-07-24] MEDS ORDERED: LIDOCAINE 1% (10MG/ML) FOR IV START INTRADERMA ONE (09:53)
[2020-07-24] MEDS ORDERED: DEXAMETHASONE SOD PHOSPHATE 4 MG/ML 1 ML VIAL IVP ONE (09:53)
[2020-07-24] MEDS ORDERED: fentaNYL (PF) 50 MCG/ML 2 ML AMP IV ONE (09:56)
[2020-07-24] MEDS ORDERED: MIDAZOLAM 2 MG/2 ML VIAL IV ONE (09:56)
[2020-07-24] MEDS ORDERED: TRANEXAMIC ACID 1,000 MG/10 ML VIAL ONE (10:26)
[2020-07-24] MEDS ORDERED: MIDAZOLAM 2 MG/2 ML VIAL ONE (10:26)
[2020-07-24] MEDS ORDERED: SODIUM CHLORIDE 0.9% 100 ML BAG ONE (10:26)
[2020-07-24] MEDS ORDERED: PROPOFOL 10 MG/ML 20 ML VIAL IV ONE (10:26)
[2020-07-24] MEDS ORDERED: fentaNYL (PF) 50 MCG/ML 2 ML AMP ONE (10:26)
[2020-07-24] MEDS ORDERED: ROPIVACAINE 0.2%-NS ON-Q PUMP 1,090 MG, EMPTY PAIN BALL 1 EACH MISCELLANE PRN (10:52)
--- NOTE | 2020-07-24 10:52 | P.ANPRN ---
Procedure Note - Anesthesia - Nerve Block Performed Right Adductor Canal Infusion Time Out Performed: Yes Date of Procedure: 07/24/20 Procedure Start Time: 09:55 Procedure Stop Time: 10:07 Location of Patient: PreOp Indication: Requested by Surgeon Specifically requested for management of pain by DrRosie: Jose Pickering Sedation Type: Sedate with meaningful contact maintained Preparation: Sterile Prep, Sterile Dressing Position: Supine Catheter: Indwelling Needle Types: Pajunk Needle Gauge: 18 Ultrasound used to visualize needle placement: Yes Ultrasound used to observe medication spread: Yes Injectate: 0.5% Ropivacaine (see comment for volume) (20 ml) Blood Aspirated: No Pain Paresthesia on Injection Noted: No Resistance on Injection: Normal Image Stored and Saved: Yes Events: Uneventful and Well Tolerated
[2020-07-24] MEDS ORDERED: NALOXONE 0.4 MG/ML 1 ML VIAL IV PRN (12:31)
[2020-07-24] MEDS ORDERED: MAGNESIUM HYDROXIDE 2,400 MG/10 ML CUP PO PRN (12:31)
[2020-07-24] MEDS ORDERED: ACETAMINOPHEN TAB 325 MG TAB PO PRN (12:31)
[2020-07-24] MEDS ORDERED: HYDROcodone/APAP 7.5-325MG 1 EACH TAB PO PRN (12:31)
--- NOTE | 2020-07-24 12:59 | P.OP ---
Date of Procedure: 07/24/20 Preoperative Diagnosis: Right knee severe tricompartmental osteoarthrosis Postoperative Diagnosis: Same Procedure(s) Performed: Right total knee arthroplastycementedcruciate retaining Implants: Frank triathlon size 7 cemented femoral component, size 7 cemented tibial component, 9 mm articular surface, 39 mm cemented patellar component. This was a cruciate retaining implant. Anesthesia: regional, local, spinal Surgeon: Jose Pickering Accredited Legal Secretary #1: Gino Vigil Estimated Blood Loss (ml): 50 Pathology: other (Bone fragments) Condition: stable Disposition: PACU Indications for Procedure: The patient is a 79-year-old male presents with progressive right knee pain secondary to osteoarthrosis by previous conservative measures. He discussion of the risks and benefits of operative intervention versus continued conservative measures was made with the patient. He opted to proceed with surgery. Operative risks to include infection, neurovascular injury, fracture, development of blood clots, possible component loosening, possible component failure and need for subsequent procedures were discussed. Informed consent was obtained. Operative Findings: As below Description of Procedure: The patient was brought to the operating room, and after induction of spinal anesthesia the right lower extremity was prepped and draped in a normal fashion. The tourniquet was inflated to 270 mmHg. A longitudinal incision extending 3 finger breaths above the superior pole of the patella extending to the medial aspect the tibial tubercle was then made. The skin and subcutaneous tissues were divided sharply. Electrocautery was used for hemostasis. A medial parapatellar arthrotomy was then performed. The medial soft tissues to include the superficial and deep portions of the medial collateral ligament as well as the medial hamstring tendons were elevated subperiosteally. The proximal medial tibia osteophytes were carefully removed. The patella was everted. The knee was flexed. A portion of the retropatellar fat pad was excised sharply. The anterior cruciate ligament was sacrificed. A starting hole was made in the distal femur 1 cm anterior to the posterior cruciate origin. An intramedullary femoral guide was gently inserted planning on 5 valgus distal cut with 9 mm distal resection. The cutting block was pinned in place. The distal cut was then made. The posterior referencing sizing guide was utilized. 3 of external rotation was built into the system and verified off the trans- epicondylar axis and the posterior condyles. I felt size 7 was most appropriate. The cutting block was pinned in place. The anterior, posterior, and chamfer cuts were then made. The bone fragments were removed. The trial size 7 femoral component was then placed and was fully seated. There was good anterior to posterior and medial to lateral fit. The distal peg holes were then drilled. The trial component was then removed. Attention was then paid towards preparing the proximal tibia. An extra medullary guide was utilized in line with the tibial shaft and second metatarsal distally. A 3 posterior slope was planned. I planned on 2 mm resection from the medial compartment. The cutting block was pinned in place. The proximal tibial cut was then made. The bone was removed in one fragment. The remnants of the medial and lateral menisci were excised the capsule junction with electrocautery. The tibia sized most appropriately at size 7. The posterior osteophytes off the distal femur were carefully removed with a curved osteotome. The trial tibial and femoral components were placed along with a 9 millimeters articular surface. I was able to obtain full flexion and extension with good stability with varus and valgus stress. After several flexion and extension cycles, the tibial rotation was marked with electrocautery in line with the medial one third of the tibial tubercle. Attention was then paid towards preparing the patella. A patella reamer was utilized taking this down to 14 mm of bone stock. A good flush cut was made. The patella sized most appropriately at 39 millimeters. The peg holes were then drilled. The trial component was placed. The knee was taken through a range of motion. I had good patellofemoral tracking with no hands technique. The trial components were then removed. The tibia was prepared in the appropriate rotation with appropriate drill and keel punch. The flexion and extension gaps were checked and felt to be symmetric. The posterior soft tissues were injected with ropivacaine. The bony surfaces were prepared with pulsatile lavage and dried. The deep tibial component was then cemented in place and was fully seated. Excess cement was removed. The femoral component was cemented in place and was fully seated. Again excess cement was removed. The trial 9 millimeters surface was then inserted in the knee was put in full extension. The patella component was cemented in place. After the cement had sufficiently hardened, the knee was again taken through a range of motion. Again there was good stability in flexion and extension with varus and valgus stress. The trial articular surface was then removed. The final articular surface was placed and was impacted. Care was taken to avoid any soft tissue interposition. Pulsatile lavage was again utilized. The tourniquet was deflated with approximately 75 minutes total tourniquet time. There was minimal drainage therefore a deep drain was not placed. The medial parapatellar arthrotomy was then closed with #2 Ethibond suture. The subcutaneous tissues were reapproximated interrupted 2-0 Vicryl sutures. The skin was reapproximated with 3-0 subarticular strata fix suture. Skin tape and adhesive was applied. A sterile dressing was applied. The patient was then awoken from sedation and transferred to recovery room in good condition. Blood loss was estimated at 50 milliliters. No complications were incurred. Sponge and needle counts were correct at the end the case. Cesar ANDREA assisted during the major components this case to include exposure, bone resection, and implantation.
--- NOTE | 2020-07-24 13:20 | XR ---
EXAMINATION TYPE: XR knee limited RT DATE OF EXAM: 07/24/2020 COMPARISON: NONE HISTORY: 79-year-old male evaluation for postoperative abnormality and alignment TECHNIQUE: 2 views FINDINGS: Images show placement of right total knee arthroplasty. Both distal femoral and proximal tibial compo nents of the prosthesis appear well seated without periprosthetic fracture. Alignment grossly anatomi c. Anterior soft tissue swelling with scattered soft tissue air as well as intra-articular air relate d to recent operation. IMPRESSION: Uncomplicated postoperative appearance right total knee arthroplasty.
[2020-07-24] MEDS ORDERED: LORATADINE 10 MG TAB PO PRN (14:53)
[2020-07-24] MEDS ORDERED: DICLOFENAC SODIUM GEL 100 GM TUBE TOPICAL PRN (14:53)
--- NOTE | 2020-07-24 15:27 | P.CONS ---
History of Present Illness - Reason for Consult Consult date: 07/24/20 med mgmt - Chief Complaint med mgmt - History of Present Illness 79 year old man with history of HTN/HLD, ALEJANDRA, PUD, BPH presented for R TKA. Medicine consulted for med management. Pt has no complaints at this time. He denies: fevers, chills, nausea/vomiting, chest/abd pain, palps, syncope, dyspnea, dysuria, dyschezia, numbness/weakness of extremities. He is HDS, afebrile on my evaluation. No current labs to review. Review of Systems All Systems reviewed and pertinent positives and negatives noted in HPI, all other symptoms are negative Past Medical History Past Medical History: Coronary Artery Disease (CAD), Eye Disorder, Hearing Disorder / Deafness, Hyperlipidemia, Hypertension, Osteoarthritis (OA), Prostate Disorder, Sleep Apnea/CPAP/BIPAP Additional Past Medical History / Comment(s): AAA, stable. ALEJANDRA no CPAP, benign polyps, hx stomach ulcer, BPH, possible nephrolithiaisis, sinus problems, macular degeneration, very [place]/wears aids. Hx asbestosis exposure. History of Any Multi-Drug Resistant Organisms: None Reported Past Surgical History: Appendectomy, Back Surgery, Heart Catheterization, Joint Replacement, Orthopedic Surgery, Tonsillectomy Additional Past Surgical History / Comment(s): lumbar and cervical fusions w/ last cervical fusion 11/05/16, left knee replaced, guera rotator cuff, guera cataract sx w/ implants, cardiac cath-treated medically, EGD/colonoscopy/polypectomies, R great toe w/ pin, bilateral tennis elbow surgery, left foot bunionectomy, Lt great toe 05/2020. TRK 07/24/2020 Past Anesthesia/Blood Transfusion Reactions: No Reported Reaction Past Psychological History: No Psychological Hx Reported Additional Psychological History / Comment(s): Pt resides with his spouse. He is independent. Smoking Status: Former smoker Past Alcohol Use History: Occasional Additional Past Alcohol Use History / Comment(s): smoking in his teens, quit in 1986. Past Drug Use History: None Reported - Past Family History Mother Family Medical History: Cancer Additional Family Medical History / Comment(s): Mother of colon cancer at age 75 Father Family Medical History: Chest Pain / Angina, Respiratory Disorder Additional Family Medical History / Comment(s): Father had black lung (worked in coal mines). He at the age of 94 yrs. Medications and Allergies Home Medications Medication Instructions Recorded Confirmed Type Losartan [Cozaar] 50 mg PO HS 10/27/16 07/24/20 History Simvastatin [Zocor] 20 mg PO HS 10/27/16 07/24/20 History Acetaminophen [Tylenol Extra 500 - 1,000 mg PO DIRECTED PRN 07/19/20 07/24/20 History Strength] Cetirizine HCl [Zyrtec] 10 mg PO DAILY PRN 07/19/20 07/24/20 History Diclofenac Sodium [Voltaren Gel] 1 applic TOPICAL DIRECTED PRN 07/19/20 07/24/20 History Temazepam [Restoril] 7.5 mg PO HS 07/19/20 07/24/20 History Vit C/E/Zn/Coppr/Lutein/Zeaxan 1 each PO DAILY 07/19/20 07/24/20 History [Preservision Areds 2 Softgel] Allergies Allergy/AdvReac Type Severity Reaction Status Date / Time morphine Allergy Severe Itching Verified 07/24/20 09:17 ceftriaxone [From Rocephin] Allergy Rash/Hives Verified 07/24/20 09:17 ertapenem [From Invanz] Allergy Itching Verified 07/24/20 09:17 hydrocodone [From Vicodin] Allergy Itching Verified 07/24/20 09:17 linezolid AdvReac stomach Verified 07/24/20 09:17 pain NSAIDS (Non-Steroidal AdvReac Instructed Verified 07/24/20 09:17 Anti-Inflamma to avoid D/T hx stomach ulcer Physical Exam Osteopathic Statement: *. No significant issues noted on an osteopathic structural exam other than those noted in the History and Physical/Consult. Vitals: Vital Signs Temp Pulse Pulse Resp BP Pulse Ox 07/24/20 14:01 97.2 F L 64 18 132/73 97 07/24/20 13:42 62 16 131/69 99 07/24/20 13:27 66 16 132/69 98 07/24/20 13:12 69 16 118/61 96 07/24/20 12:57 97.5 F L 68 16 120/75 95 07/24/20 10:15 66 16 127/75 97 07/24/20 09:54 98.3 F 71 16 150/76 96 Intake and Output 07/24/20 07/24/20 07/24/20 06:59 14:59 22:59 Intake Total 1050 Output Total 50 Balance 1000 Intake: IV 1050 Output: Estimated Blood Loss 50 Other: Weight 114.3 kg Gen: awake, alert HEENT: normocephalic, atraumatic, good hearing acuity, moist mucous membranes Resp: good air exchange, breathing comfortably with no accessory muscle use, clear to auscultation bilaterally CVS: good distal perfusion x 4, regular rate and rhythm without murmurs GI: soft, NTTP, ND : no SPT, no CVAT, childs catheter not present MSK: no pitting edema, no clubbing Neuro: non-focal, moving all extremities Psych: cooperative, euthymic mood Assessment and Plan Assessment: 1. Hypertension 2. Hyperlipidemia 3. BPH 4. ALEJANDRA 5. PUD 6. R TKA 79 year old man with history of HTN/HLD, BPH, ALEJANDRA, PUD presented for elective TKA. Pt is doing well post-operatively, with stable medical issues. Plan: - monitor on telemetry - repeat BMP, Mg, CBC in the AM - continue losartan, statin, cetirizine, tylenol - continue preservision - continue diclofenac gel - discontinuing home restoril as patient has ALEJANDRA and does not report using it at home. Full Code enoxaparin 40mg daily
[2020-07-24] MEDS: HYDROcodone/APAP 7.5-325MG 1 EACH TAB PO PRN (16:12)
[2020-07-24] MEDS: ATORVASTATIN 10 MG TAB PO SCH (20:07)
[2020-07-24] MEDS: SENNOSIDES-DOCUSATE SODIUM 1 EACH TAB PO SCH (20:07)
[2020-07-24] MEDS: LOSARTAN 50 MG TAB PO SCH (20:07)
[2020-07-24] MEDS ORDERED: TEMAZEPAM 7.5 MG CAP PO SCH (21:00)
[2020-07-25] MEDS: HYDROmorphone 0.5 MG/0.5 ML SYRINGE IVP PRN ×2 (04:53→15:36)
[2020-07-25] MEDS ORDERED: ROPIVACAINE 246.25 MG, EPINEPHrine 0.5 MG, KETOROLAC 30 MG, cloNIDine HCL/PF 80 MCG, WA... MISCELLANE PRN ×5 (05:00)
--- NOTE | 2020-07-25 06:43 | P.PN ---
Progress Note - Text Progress Note Date: 07/25/20 Patient was seen at bedside at 630 AM. Patient is postop day 1 from right total knee replacement with adductor canal catheter placed for pain . Ropivacaine 0.2% infusion running at 8 ml per hour. VAS score is 2. Patient denies side effects. Lower extremity sensation and motor function is intact. Patient has ambulated. Dressing clean dry and intact over catheter site
[2020-07-25] MEDS: VIT A,C & E-LUTEIN-MINERALS 1 EACH TAB PO SCH (07:36)
[2020-07-25] MEDS: ENOXAPARIN 40 MG/0.4 ML SYRINGE SQ SCH (07:36)
[2020-07-25] MEDS: HYDROcodone/APAP 7.5-325MG 1 EACH TAB PO PRN ×3 (08:42→21:36)
[2020-07-25 09:23] LABS: Basophils # (A) 0.02 X 10*3/uL (0.00-0.10); Basophils % (A) 0.2 %; Eosinophils # (A) 0.05 X 10*3/uL (0.04-0.35); Eosinophils % (A) 0.4 %; HCT 33.2 % (39.6-50.0); HGB 10.7 g/dL (13.0-17.0); Lymphocytes # (A) 2.02 X 10*3/uL (0.90-5.00); MCH 28.8 pg (27.0-32.0); MCHC 32.2 g/dL (32.0-37.0); MCV 89.2 fL (80.0-97.0); Mean Platelet Volume 10.5 fL (9.5-12.2); Monocytes # (A) 0.98 X 10*3/uL (0.20-1.00); Monocytes % (A) 8.3 %; Neutrophils # (A) 8.74 X 10*3/uL (1.80-7.70); Neutrophils % (A) 73.7 %; Platelet Count 139 X 10*3/uL (140-440); RBC 3.72 X 10*6/uL (4.40-5.60); RDW 14.1 % (11.5-14.5); WBC 11.86 X 10*3/uL (4.50-10.00)
[2020-07-25 09:43] LABS: African American GFR (CKD) 66.3 (60.0-200.0); Anion Gap 5.3 mmol/L (4.00-12.00); Calcium 8.8 mg/dL (8.7-10.3); Carbon Dioxide 27.7 mmol/L (21.6-31.8); Magnesium 2.2 mg/dL (1.5-2.4); Non-African American GFR(CKD) 57.2 (60.0-200.0); Potassium 4.7 mmol/L (3.5-5.5)
--- NOTE | 2020-07-25 11:07 | P.PN ---
Subjective Progress Note Date: 07/25/20 Principal diagnosis: status post right total knee arthroplasty Patient is evaluated at bedside today, resting in his hospital bed. I did see the patient working with physical therapy today, I had a conversation with physical therapist. She stated that he had a very difficult time doing stairs. He is having increasing pain today, he notes more anterior aspect of the knee. Currently denies any headaches, lightheadedness, chest pain or shortness of breath. Objective - Vital Signs Vital signs: Vital Signs Temp 98.1 F 07/25/20 08:00 Pulse 53 L 07/25/20 08:00 Resp 20 07/25/20 08:00 BP 127/68 07/25/20 08:00 Pulse Ox 93 L 07/25/20 08:00 Intake & Output 07/24/20 07/25/20 07/25/20 18:59 06:59 18:59 Intake Total 1530 480 480 Output Total 50 1150 Balance 1480 -670 480 Weight 114.3 kg Intake: IV 1050 Oral 480 480 480 Output: Urine 1150 Straight 850 Estimated Blood Loss 50 Other: # Voids 1 - Exam Right lower extremity: Incision is clean, dry, and intact. The exofin fusion tape is in good condition. There is minimal soft tissue swelling and ecchymosis surrounding the medial and lateral aspects of the incision. Calf is soft, no tenderness with palpation. Plantar flexion, dorsiflexion, EHL, FHL are intact. Sensory exam to light touch throughout the extremity is intact, dorsal pedis pulses 2+. - Labs CBC & Chem 7: 07/25/20 06:56 07/25/20 06:56 Labs: Abnormal Lab Results - Last 24 Hours (Table) 07/25/20 07/25/20 Range/Units 06:56 06:56 WBC 11.86 H (4.50-10.00) X 10*3/uL RBC 3.72 L (4.40-5.60) X 10*6/uL Hgb 10.7 L (13.0-17.0) g/dL Hct 33.2 L (39.6-50.0) % Plt Count 139 L (140-440) X 10*3/uL Immature Gran # 0.05 H (0.00-0.04) X 10*3/uL Neutrophils # 8.74 H (1.80-7.70) X 10*3/uL Est GFR (CKD-EPI)NonAf 57.2 L (60.0-200.0) Assessment and Plan Assessment: Status post right total knee arthroplasty Plan: Pain control, continue [place] 7.5 mg/325 mg. Okay to use IV medications for breakthrough DVT prophylaxis, continue subcu medication. We'll plan for subcu medication at discharge, patient has a history of an ulcer from previous use of NSAIDs Ice and elevate often Continue working with physical therapy, utilize walker with ambulation Encourage incentive spirometer Medical recommendations Discharge planning: Hopeful discharged home tomorrow Time with Patient: Less than 30
--- NOTE | 2020-07-25 16:51 | P.PN ---
Subjective Progress Note Date: 07/25/20 (Delayed charting seen at 1045) Principal diagnosis: knee pain Patient is a 70-year-old male who presented for elective right total knee arthroplasty. He tolerated the procedure well but was having significant pain postoperatively. Apparently the patient also had left foot surgery in May 2020 and has been using and knee scooter at home. Patient seen and examined at bedside. Denies any chest pain, shortness breath, nausea, or vomiting. He complains of right knee pain. Apparently yesterday he had some numbness of his genital area and required straight cath 1 however this has resolved. He denies any nausea or vomiting. He has not been having any constipation yet. He reports that his knee pain is worse with walking and better with rest. He is also having some swelling and pain of his left foot after having a recent surgery. General: non toxic, mild distress secondary to pain., appears at stated age Derm: warm, dry Head: atraumatic, normocephalic, symmetric Eyes: EOMI, no lid lag, anicteric sclera Mouth: no lip lesion, mucus membranes moist Cardiovascular: S1S2 reg with grade 2 murmur, positive posterior tibial pulse bilateral Lungs: Decreased breath sounds bilateral, no rhonchi, no rales , no accessory muscle use Abdominal: soft, nontender to palpation, no guarding, no appreciable organomegaly Ext: no gross muscle atrophy, mild swelling right knee joint, no contractures Neuro: CN II-XI grossly intact, no focal neuro deficits Psych: Alert, oriented, appropriate affect Patient is a 70-year-old male status post right total knee arthroplasty. Management per orthopedic surgery. Acute blood loss anemia as anticipated outcome of surgery, thrombocytopenia -Repeat CBC in a.m. -Should improve over time without any specific intervention Coronary artery disease -Statin Hypertension -controlled -Continue with Cozaar Dyslipidemia -Statin therapy Obesity with BMI 34.2 -Increase exercise secondary to treatment of his knee pain Thank you for allowing us to participate in the care of this pleasant patient. Do not hesitate to contact us with questions. Someone can be reached from the [facility] hospitalist group all hours of the day at [phone] or via perfect serve. Objective - Vital Signs Vital signs: Vital Signs Temp 97.2 F L 07/25/20 14:00 Pulse 70 07/25/20 14:00 Resp 20 07/25/20 14:00 BP 148/72 07/25/20 14:00 Pulse Ox 95 07/25/20 14:00 Intake & Output 07/24/20 07/25/20 07/25/20 18:59 06:59 18:59 Intake Total 1530 480 960 Output Total 50 1150 Balance 1480 -670 960 Weight 114.3 kg Intake: IV 1050 Oral 480 480 960 Output: Urine 1150 Straight 850 Estimated Blood Loss 50 Other: # Voids 1 - Labs CBC & Chem 7: 07/25/20 06:56 07/25/20 06:56 Labs: Abnormal Lab Results - Last 24 Hours (Table) 07/25/20 07/25/20 Range/Units 06:56 06:56 WBC 11.86 H (4.50-10.00) X 10*3/uL RBC 3.72 L (4.40-5.60) X 10*6/uL Hgb 10.7 L (13.0-17.0) g/dL Hct 33.2 L (39.6-50.0) % Plt Count 139 L (140-440) X 10*3/uL Immature Gran # 0.05 H (0.00-0.04) X 10*3/uL Neutrophils # 8.74 H (1.80-7.70) X 10*3/uL Est GFR (CKD-EPI)NonAf 57.2 L (60.0-200.0)
[2020-07-25] MEDS: SENNOSIDES-DOCUSATE SODIUM 1 EACH TAB PO SCH (20:19)
[2020-07-25] MEDS: LOSARTAN 50 MG TAB PO SCH (20:19)
[2020-07-25] MEDS: ATORVASTATIN 10 MG TAB PO SCH (20:19)
[2020-07-26] MEDS: traMADol 50 MG TAB PO PRN ×3 (00:06→15:11)
[2020-07-26] MEDS: HYDROcodone/APAP 7.5-325MG 1 EACH TAB PO PRN ×2 (04:56→12:52)
[2020-07-26] MEDS: HYDROmorphone 0.5 MG/0.5 ML SYRINGE IVP PRN (08:11)
[2020-07-26 08:12] LABS: HCT 34.2 % (39.0-53.0); HGB 10.8 gm/dL (13.0-17.5); MCH 27.8 pg (25.0-35.0); MCHC 31.6 g/dL (31.0-37.0); MCV 88.1 fL (80.0-100.0); Mean Platelet Volume 7.8; Platelet Count 137 k/uL (150-450); RBC 3.88 m/uL (4.30-5.90); RDW 14.2 % (11.5-15.5); WBC 9.8 k/uL (3.8-10.6)
--- NOTE | 2020-07-26 09:37 | P.PN ---
Subjective Progress Note Date: 07/26/20 Principal diagnosis: status post right total knee arthroplasty Patient is evaluated at bedside today, resting in his hospital bed. Patient states he is moving better today than he was yesterday. He still notes mostly discomfort when he is ambulating. He is passing a lot of gas, he's not had a bowel movement. He is urinating without difficulties. Currently denies any headaches, lightheadedness, chest pain or shortness of breath. Objective - Vital Signs Vital signs: Vital Signs Temp 97.7 F 07/26/20 07:49 Pulse 61 07/26/20 07:49 Resp 20 07/26/20 07:49 BP 135/71 07/26/20 07:49 Pulse Ox 96 07/26/20 07:49 Intake & Output 07/25/20 07/26/20 07/26/20 18:59 06:59 18:59 Intake Total 960 480 Output Total 1000 Balance 960 -520 Intake: Oral 960 480 Output: Urine 1000 Other: # Voids 3 - Exam Right lower extremity: Incision is clean, dry, and intact. The exofin fusion tape is in good condition. There is minimal soft tissue swelling and ecchymosis surrounding the medial and lateral aspects of the incision. Calf is soft, no tenderness with palpation. Plantar flexion, dorsiflexion, EHL, FHL are intact. Sensory exam to light touch throughout the extremity is intact, dorsal pedis pulses 2+. - Labs CBC & Chem 7: 07/26/20 07:51 07/25/20 06:56 Labs: Abnormal Lab Results - Last 24 Hours (Table) 07/25/20 07/26/20 Range/Units 06:56 07:51 RBC 3.88 L (4.30-5.90) m/uL Hgb 10.8 L (13.0-17.5) gm/dL Hct 34.2 L (39.0-53.0) % Plt Count 137 L (150-450) k/uL Est GFR (CKD-EPI)NonAf 57.2 L (60.0-200.0) Assessment and Plan Assessment: Status post right total knee arthroplasty Plan: Pain control, plan for discharge home on Chelsea 7.5 mg/325 mg DVT prophylaxis, plan for Lovenox 40 mg daily for 2 weeks at discharge Ice and elevate often Continue working with physical therapy, utilize walker with ambulation Encourage incentive spirometer Medical recommendations Discharge planning: Plan for discharge today Time with Patient: Less than 30
--- NOTE | 2020-07-26 09:41 | P.DS ---
Providers Date of admission: 07/24/2020 Expected date of discharge: 07/26/20 Attending physician: Jose Pickering Consults: 07/24/20 12:31 Consult Physician Routine Consulting Provider: Em Em Reason/Comments: medical management Do you want consulting provider notified?: Yes Primary care physician: Em Em Hospital Course: Date of admission: 07/24/2020 Date of discharge: 07/26/2020 Admission diagnosis: Status post right total knee arthroplasty Discharge diagnosis: Same Attending physician: Dr. Pickering Surgical procedures: Right total knee arthroplasty Brief history: Patient is a 79-year-old male with a history of progressive primary right knee osteoarthritis. At this point patient has failed conservative treatment measures and has opted to proceed with a elective right total knee arthroplasty. Hospital course: Details of patient's surgery can be found in operative report. Patient tolerated the procedure well and was subsequently transported to orthopedic floor. Patient's orthopeidc and medical care was provided daily. Patient had daily laboratory tests performed for evaluation of overall blood counts. Patient had daily physical therapy to include strengthening range of motion as well as education with walker ambulation. Patient was treated with Lovenox for their postoperative DVT prophylaxis during their inpatient stay. Patient was noted to have a relatively uneventful postoperative course. Patient reported satisfactory pain control with oral pain medications by postoperative day 0. Patient showed satisfactory progress with physical therapy. Patient moved steadily through the program and had no difficulty meeting the goals by postoperative day 2. Given patient's otherwise satisfactory course and having met physical therapy goals, plan is to discharge patient home on postoperative day 2. Discharge condition/disposition: Patient will be discharged home in stable condition. Discharge medications: Instructions are given on resumption of patient's normal daily medications per primary care recommendation, in addition patient will be prescribed Ava 7.5 mg/325 mg, Colace 100 mg, MiraLAX 17 g, Lovenox 40 mg. Discharge instructions: 1. Wound care and infection precautions, keep incision dry and covered while showering, no lotions, creams, moisturizers. No soaking, tubs, pools, hottubs. Do not scrub over the incision. 2. Weight-bear as tolerated with walker / cane until follow-up. 3. Ice and elevate when necessary. Do not exceed 20 minutes per hour with ice pack. 4. Utilize compression sleeve until seen at first follow up appointment. 5. Visiting nursing care. 6. Home physical therapy . 7. Pain meds and anticoagulants per prescription. 8. Pain medication has potential to cause constipation. Increase oral fluid and fiber intake. Contact primary care provider if you have not had a bowel movement within 48 hours after discharge 9. No anti-inflammatory medication until discussed at first post operative visit, this including Motrin, Aleve, Mobic, Diclofenac 10. Follow up in office at 2 weeks postop with Cesar Vigil PA-C 11. Follow up with your primary care doctor 7-10 days after discharge. 12. Contact [facility] with any questions, . Procedures: Right total knee arthroplasty Patient Condition at Discharge: Good Plan - Discharge Summary Discharge Rx Participant: No New Discharge Prescriptions: New Docusate [Colace] 100 mg PO DAILY #30 capsule Enoxaparin [Lovenox] 40 mg SQ DAILY #12 syringe polyethylene glycoL 3350 [Miralax] 17 gm PO DAILY PRN #20 packet PRN Reason: Constipation HYDROcodone/APAP 7.5-325MG [Ava 7.5] 1 - 2 each PO Q6HR PRN #42 tab PRN Reason: Pain Continue Simvastatin [Zocor] 20 mg PO HS Losartan [Cozaar] 50 mg PO HS Acetaminophen [Tylenol Extra Strength] 500 - 1,000 mg PO DIRECTED PRN PRN Reason: Pain Vit C/E/Zn/Coppr/Lutein/Zeaxan [Preservision Areds 2 Softgel] 1 each PO DAILY Cetirizine HCl [Zyrtec] 10 mg PO DAILY PRN PRN Reason: allergy sx Diclofenac Sodium [Voltaren Gel] 1 applic TOPICAL DIRECTED PRN PRN Reason: Pain Discontinued Temazepam [Restoril] 7.5 mg PO HS Discharge Medication List Losartan [Cozaar] 50 mg PO HS 10/27/16 [History] Simvastatin [Zocor] 20 mg PO HS 10/27/16 [History] Acetaminophen [Tylenol Extra Strength] 500 - 1,000 mg PO DIRECTED PRN 07/09 06/28 [History] Cetirizine HCl [Zyrtec] 10 mg PO DAILY PRN 07/19/20 [History] Diclofenac Sodium [Voltaren Gel] 1 applic TOPICAL DIRECTED PRN 07/19/20 [History] Vit C/E/Zn/Coppr/Lutein/Zeaxan [Preservision Areds 2 Softgel] 1 each PO DAILY 07/19/20 [History] Docusate [Colace] 100 mg PO DAILY #30 capsule 07/26/20 [Rx] Enoxaparin [Lovenox] 40 mg SQ DAILY #12 syringe 07/26/20 [Rx] HYDROcodone/APAP 7.5-325MG [Ava 7.5] 1 - 2 each PO Q6HR PRN #42 tab 07/26/20 [Rx] polyethylene glycoL 3350 [Miralax] 17 gm PO DAILY PRN #20 packet 07/26/20 [Rx] Follow up Appointment(s)/Referral(s): [facility],Equipment [NON-STAFF] - (*Please call [facility] once home to arrange delivery of Continuous Passive Motion (CPM) machine*) [facility], [NON-STAFF] - As Needed Gino Vigil PAC [PHYSICIAN COMMUNICATIONS MANAGER] - 08/08/20 2:50 pm Em Em MD [Primary Care Provider] - 08/01/20 1:00 pm Patient Instructions/Handouts: *Surgery [facility] - On-Q Pain Pump Discharge Instructions, Precautions after Total Joint Replacement Surgery (DC), Joint Replacement Surgery (DC) Activity/Diet/Wound Care/Special Instructions: Orthopedic Discharge Instructions: 1. Wound care and infection precautions, keep incision dry and covered while showering, no lotions, creams, moisturizers. No soaking, pools, hot tubs. Do not scrub over incision. 2. Weight-bear as tolerated with walker / cane until follow-up. 3. Ice and elevate when necessary. Do not exceed 20 minutes per hour with ice pack. 4. Utilize compression sleeve until seen at first follow up appointment. 5. Pain meds and anticoagulants per prescription. 6. Pain medication has potential to cause constipation. Increase oral fluid and fiber intake. Contact primary care provider if you have not had a bowel movement within 48 hours after discharge. 7. No anti-inflammatory medication until discussed at first post operative visit, this including Motrin, Aleve, Mobic, Diclofenac. 8. Follow up in office at 2 weeks postop with Cesar Vigil PA-C 9. Follow up with your primary care doctor 7-10 days after discharge. 10. Contact [facility] with any questions, . Do not take Restoril while on pain medications, this can lead to accidental overdose. Discharge Disposition: HOME WITH HOME HEALTH SERVICES
[2020-07-26] MEDS: ENOXAPARIN 40 MG/0.4 ML SYRINGE SQ SCH (09:44)
[2020-07-26] MEDS: VIT A,C & E-LUTEIN-MINERALS 1 EACH TAB PO SCH (09:44)
--- NOTE | 2020-07-26 11:18 | P.PN ---
Subjective Progress Note Date: 07/26/20 Principal diagnosis: knee pain Patient is a 70-year-old male who presented for elective right total knee arthroplasty. He tolerated the procedure well but was having significant pain postoperatively. Apparently the patient also had left foot surgery in May 2020 and has been using and knee scooter at home. Patient seen and examined at bedside. He continues to have some right knee pain. He has been able to get up to the bathroom. He denies any nausea, vomiting, chest pain, or shortness of breath. He is worried about going home with his cannot physically help him due to her rheumatoid arthritis, however she helps all his pills she is a retired nurse. General: non toxic, No distress, appears at stated age Derm: warm, dry Head: atraumatic, normocephalic, symmetric Eyes: EOMI, no lid lag, anicteric sclera Mouth: no lip lesion, mucus membranes moist Cardiovascular: S1S2 reg with grade 2 murmur, positive posterior tibial pulse bilateral Lungs: Decreased breath sounds bilateral, no rhonchi, no rales , no accessory muscle use Abdominal: soft, nontender to palpation, no guarding, no appreciable organomegaly Ext: no gross muscle atrophy, mild swelling right knee joint, no contractures Neuro: CN II-XI grossly intact, no focal neuro deficits Psych: Alert, oriented, appropriate affect Patient is a 70-year-old male status post right total knee arthroplasty. Management per orthopedic surgery. Acute blood loss anemia as anticipated outcome of surgery, thrombocytopenia -stable -Should improve over time without any specific intervention Coronary artery disease -Statin - not on ASA due to hx of ulcer Hypertension -controlled -Continue with Cozaar Dyslipidemia -Statin therapy Obesity with BMI 34.2 -Increase exercise secondary to treatment of his knee pain Medically optimized of discharge, discharge med rec addressed. Thank you for allowing us to participate in the care of this pleasant patient. Do not hesitate to contact us with questions. Someone can be reached from the [facility] hospitalist group all hours of the day at [phone] or via perfect serve. Objective - Vital Signs Vital signs: Vital Signs Temp 97.7 F 07/26/20 07:49 Pulse 61 07/26/20 07:49 Resp 20 07/26/20 07:49 BP 135/71 07/26/20 07:49 Pulse Ox 96 07/26/20 07:49 Intake & Output 07/25/20 07/26/20 07/26/20 18:59 06:59 18:59 Intake Total 960 480 Output Total 1000 Balance 960 -520 Intake: Oral 960 480 Output: Urine 1000 Other: # Voids 3 - Labs CBC & Chem 7: 07/26/20 07:51 07/25/20 06:56 Labs: Abnormal Lab Results - Last 24 Hours (Table) 07/25/20 07/25/20 07/26/20 Range/Units 06:56 06:56 07:51 WBC 11.86 H (4.50-10.00) X 10*3/uL RBC 3.72 L 3.88 L (4.40-5.60) X 10*6/uL Hgb 10.7 L 10.8 L (13.0-17.0) g/dL Hct 33.2 L 34.2 L (39.6-50.0) % Plt Count 139 L 137 L (140-440) X 10*3/uL Immature Gran # 0.05 H (0.00-0.04) X 10*3/uL Neutrophils # 8.74 H (1.80-7.70) X 10*3/uL Est GFR (CKD-EPI)NonAf 57.2 L (60.0-200.0)
[2020-07-26 15:04] VITALS: BP 144/73; PULSE 57; RESP 20; TEMP 98.4
== END 2020-07-26 16:56 | disposition home health service (06) ==
LOC: OR 08:34 → 4SSUR 12:52 → OR 07-26 07:31 → 4SSUR 07-26 07:31 → UNDOADMOB 07-26 07:31 → 4SSUR 07-26 07:31 → UNDODISOB 07-26 16:56
PROVIDERS: ADMIT Orthopaedic Surgery; ATTEND Orthopaedic Surgery
DX: M17.11 Unilateral primary osteoarthritis, right knee (principal); M23.203 Derangement of unspecified medial meniscus due to old tear or injury, right knee; I10 Essential (primary) hypertension; E78.00 Pure hypercholesterolemia, unspecified; E78.5 Hyperlipidemia, unspecified; I25.9 Chronic ischemic heart disease, unspecified; I35.1 Nonrheumatic aortic (valve) insufficiency; R94.39 Abnormal result of other cardiovascular function study; I71.4 Abdominal aortic aneurysm, without rupture; I25.10 Atherosclerotic heart disease of native coronary artery without angina pectoris; I71.2 Thoracic aortic aneurysm, without rupture; H35.30 Unspecified macular degeneration; M54.2 Cervicalgia; G47.00 Insomnia, unspecified; G47.33 Obstructive sleep apnea (adult) (pediatric); N40.0 Benign prostatic hyperplasia without lower urinary tract symptoms; D62 Acute posthemorrhagic anemia; D69.6 Thrombocytopenia, unspecified; E66.9 Obesity, unspecified; H91.90 Unspecified hearing loss, unspecified ear; M06.9 Rheumatoid arthritis, unspecified; Z82.49 Family history of ischemic heart disease and other diseases of the circulatory system; Z68.34 Body mass index [BMI] 34.0-34.9, adult; Z80.0 Family history of malignant neoplasm of digestive organs; Z87.11 Personal history of peptic ulcer disease; Z87.891 Personal history of nicotine dependence; Z98.1 Arthrodesis status; Z98.42 Cataract extraction status, left eye; Z98.41 Cataract extraction status, right eye; Z96.1 Presence of intraocular lens; Z77.090 Contact with and (suspected) exposure to asbestos; Z90.89 Acquired absence of other organs; Z83.6 Family history of other diseases of the respiratory system; Z79.899 Other long term (current) drug therapy; Z88.5 Allergy status to narcotic agent; Z88.1 Allergy status to other antibiotic agents; Z98.890 Other specified postprocedural states; Z96.652 Presence of left artificial knee joint
CPT/HCPCS: 27447; 97116 ×2; 97162; 64448; 76942; 80048; 83735; 85025; 85027; 88300; 73560; G0378; C1713; C1776; J2250; J0171; J1100; J0690 ×2; J2405; J1650 ×2; J3010; J1885; J2795 ×2; J2704; J0735; J1170 ×2

== ENCOUNTER → 2022-05-14 | Outpatient (CLI) | payer MEDICARE | END | disposition home or self-care (01) | LOC: LABWHC1 13:54 | PROVIDERS: ATTEND Urology | DX: C61 Malignant neoplasm of prostate (principal) | CPT/HCPCS: 36415; 84153 ==

== ENCOUNTER → 2022-05-20 | Outpatient (CLI) | payer MEDICARE ==
--- NOTE | 2022-05-21 22:49 | MR ---
EXAMINATION TYPE: MR cervical spine wo con DATE OF EXAM: 05/20/2022 INDICATION: Patient age:Male; 81 years old; Reason for study: M54.12 RADICULOPATHY, CERVICAL REGION; PHH. Neck pain, numbness in hands, hx fusion . COMPARISON: C-spine radiograph 05/09/2022. TECHNIQUE: Multi planar, multi sequence imaging was performed utilizing: T1-weighted, T2-weighted, an d turbo inversion recovery imaging of the cervical spine. IV Contrast: None FINDINGS: Alignment: The cervical vertebral bodies have preserved heights. Postsurgical straightening of the sp ine. Bones: Bone signal is within normal limits. Multilevel degenerative disc disease is noted and m ost pronounced at the vertebral levels. Cord: The spinal cord is unremarkable with regards to their signal intensity and morphology. Discs: Multilevel surgically absent discs extending from C4-C5, C5-C6 and C6-C7. C2-C3: No significant disc pathology. The spinal canal is patent. No neural foraminal stenosis. C3-C4: No significant disc pathology. The spinal canal is patent. Bilateral facet and uncovertebral joint arthropathy are present with moderate bilateral neural foraminal stenosis. C4-C5: The spinal canal is patent. Bilateral facet and uncovertebral joint arthropathy are present w ith mild bilateral neural foraminal stenosis. C5-C6: The spinal canal is patent. Bilateral facet and uncovertebral joint arthropathy are present w ith mild bilateral neural foraminal stenosis. C6-C7: The spinal canal is patent. Bilateral facet and uncovertebral joint arthropathy are present w ith moderate bilateral neural foraminal stenosis. C7-T1: No significant disc pathology. The spinal canal is patent. No neural foraminal stenosis. Other: None. IMPRESSION: 1. No evidence for disc herniation or significant spinal canal stenosis. 2. Multilevel disc degeneration with associated osteoarthritic changes neural foraminal stenosis thro ughout the spine worse at C3-C4 and C6-C7 bilaterally.
== END | disposition home or self-care (01) ==
LOC: RADMRIMAIN 18:23
PROVIDERS: ATTEND Orthopaedic Surgery
DX: M50.11 Cervical disc disorder with radiculopathy, high cervical region (principal); M48.02 Spinal stenosis, cervical region; M99.71 Connective tissue and disc stenosis of intervertebral foramina of cervical region
CPT/HCPCS: 72141

== ENCOUNTER → 2022-06-30 | Outpatient (CLI) | payer MEDICARE ==
[2022-06-30 18:37] LABS: Basophils # (A) 0.07 X 10*3/uL (0.00-0.10); Basophils % (A) 0.7 %; Eosinophils # (A) 0.26 X 10*3/uL (0.04-0.35); Eosinophils % (A) 2.7 %; HCT 39.9 % (39.6-50.0); HGB 12.4 g/dL (13.0-17.0); Immature Grans, Automated 0.5 %; Lymphocytes # (A) 2.14 X 10*3/uL (0.90-5.00); Lymphocytes % (A) 22.5 %; MCH 27.7 pg (27.0-32.0); MCHC 31.1 g/dL (32.0-37.0); MCV 89.1 fL (80.0-97.0); Mean Platelet Volume 10.7 fL (9.5-12.2); Monocytes # (A) 0.56 X 10*3/uL (0.20-1.00); Monocytes % (A) 5.9 %; NRBC Per 100 WBC 0 /100 WBCS (0.0-0.0); Neutrophils # (A) 6.42 X 10*3/uL (1.80-7.70); Neutrophils % (A) 67.7 %; Platelet Count 204 X 10*3/uL (140-440); RBC 4.48 X 10*6/uL (4.40-5.60); RDW 15.5 % (11.5-14.5)
[2022-07-01 10:24] LABS: African American GFR (CKD) 81.4 (60.0-200.0); Anion Gap 12.3 mmol/L (10.00-18.00); BUN/Creat Ratio 24.7 Ratio (12.00-20.00); Blood Urea Nitrogen 24.7 mg/dL (9.0-27.0); Calcium 9.7 mg/dL (8.7-10.3); Carbon Dioxide 26.7 mmol/L (20.0-27.5); Non-African American GFR(CKD) 70.3 (60.0-200.0); Potassium 4.3 mmol/L (3.5-5.5)
== END | disposition home or self-care (01) ==
LOC: LABPAT 13:16
PROVIDERS: ATTEND Orthopaedic Surgery Hand Surgery
DX: Z01.812 Encounter for preprocedural laboratory examination (principal); G56.01 Carpal tunnel syndrome, right upper limb; G56.21 Lesion of ulnar nerve, right upper limb; I44.0 Atrioventricular block, first degree; R94.31 Abnormal electrocardiogram [ECG] [EKG]
CPT/HCPCS: 36415; 80048; 85025; 93005

== ENCOUNTER → 2022-07-02 | Outpatient (CLI) | payer MEDICARE ==
--- NOTE | 2022-07-02 11:45 | FL ---
EXAMINATION TYPE: FL UGI air w esophagus DATE OF EXAM: 07/02/2022 COMPARISON: NONE HISTORY: GERD TECHNIQUE: A double contrast UGI study is performed. A total of 17 seconds of fluoroscopic time was utilized during procedure and 138 images obtained. FINDINGS: The esophagus shows normal motility and emptying into the stomach. No evidence of hiatal hernia or s tricture noted. The stomach shows normal distensibility, peristalsis, and mucosal folds. No evidence of any mass or ulcer disease. No significant gastroesophageal reflux was seen during real time performance of this study. The duodenal bulb, sweep, and proximal small bowel loops are unremarkable. Cervical fusion are redemo nstrated. IMPRESSION: Normal upper GI study.
== END | disposition home or self-care (01) ==
LOC: RADUSWWP 10:49
PROVIDERS: ATTEND Surgery
DX: K21.9 Gastro-esophageal reflux disease without esophagitis (principal)
CPT/HCPCS: 74246

== ENCOUNTER 2022-09-10 10:16 | Day surgery (SDC) | payer MEDICARE ==
--- NOTE | 2022-09-08 10:38 | P.HPOR ---
History of Present Illness H&P Date: 09/08/22 Chief Complaint: Left carpal tunnel syndrome/cubital tunnel syndrome Subjective: This is a 81 year old male that presents today for a post-operative visit after undergoing a right endoscopic carpal tunnel release and right open cubital tunnel release on 07/23/2022. He is doing very well and has noticed improvement in his numbness and tingling and strength in the hand. He states he would like to schedule his left carpal tunnel release and left cubital tunnel release in the near future. Physical Examination: RUE: AIN/PIN/Radial/Ulnar/Median motor intact. Radial/Ulnar/Median SILT. 2+/4 Radial/Ulnar pulses palpated. volar wrist incision and medial elbow incision well approximated with sutures intact at the medial elbow incision. Able to make full fist. LUE: AIN/PIN/Radial/Ulnar/Median motor intact. Radial/Ulnar/Median SILT. 2+/4 Radial/Ulnar pulses palpated. Positive Durkan's compression. Positive tinels at elbow. Impression: 1.) S/P Right endoscopic carpal tunnel release and right open cubital tunnel release 2.) Left carpal tunnel syndrome 3.) Left cubital tunnel syndrome Plan: Diagnosis and treatment options were discussed with the patient. responding well to his right-sided surgeries. He may continue to use the hand as tolerated. Sutures are removed from the elbow in the office today. He is tentatively scheduled for a left endoscopic versus open carpal tunnel release and left open cubital tunnel release in the near future. Risks and benefits of surgery including bleeding, infection, damage to surrounding tissue, need for further surgery, possible need to convert to open procedure, residual numbness were discussed and the patient wished to go forward with surgery. The patient is agreeable with this plan. -Vish Whitney DO Orthopedic Hand/Upper Extremity Surgeon Past Medical History Past Medical History: Coronary Artery Disease (CAD), Cancer, Eye Disorder, GERD /Reflux, GI Bleed, Hearing Disorder / Deafness, Hyperlipidemia, Memory Impairment, Osteoarthritis (OA), Prostate Disorder, Sleep Apnea/CPAP/BIPAP, Vascular Disorder Additional Past Medical History / Comment(s): Aortic aneurysm (small) being monitor, muscle spasms, benign colon polyps, past stomach ulcers, lower GI bleed d/t diverticulitis, chronic pain, possible nephrolithiasis, sinus problems, BPH, prostate cancer (3 positive biopsies), beginning stages of bilateral macular degeneration. History of Any Multi-Drug Resistant Organisms: None Reported Past Surgical History: Appendectomy, Back Surgery, Heart Catheterization, Joint Replacement, Orthopedic Surgery, Tonsillectomy Additional Past Surgical History / Comment(s): Recent R carpal tunnel release/R carpal tunnel release/R elbow cubital release, lumbar and cervical fusions x 3, left/ right knee replaced, guera rotator cuff, guera cataract sx w/ implants, cardiac cath-treated medically, EGD/colonoscopy/polypectomies, R great toe w/ pin, L great toe bunionectomy/hardware which became infected then removed and replaced, bilateral tennis elbow surgery. Past Anesthesia/Blood Transfusion Reactions: No Reported Reaction Additional Past Anesthesia/Blood Transfusion Reaction / Comment(s): Pt has never had a blood transfusion Smoking Status: Former smoker - Past Family History Mother Family Medical History: Cancer Additional Family Medical History / Comment(s): Mother of colon cancer at age 75 Father Family Medical History: Chest Pain / Angina, Respiratory Disorder Additional Family Medical History / Comment(s): Father had black lung (worked in [email or web address]). He at the age of 94 yrs. Medications and Allergies Home Medications Medication Instructions Recorded Confirmed Type Vit C/E/Zn/Coppr/Lutein/Zeaxan 2 cap PO BID 07/19/20 09/05/22 History [Preservision Areds 2 Softgel] Losartan [Cozaar] 50 mg PO HS 30 Days #30 tab 03/17/22 09/05/22 Rx Cyclobenzaprine [Flexeril] 5 mg PO BID 07/18/22 09/05/22 History Multivit-Min/FA/Lycopen/Lutein 1 each PO 1200 07/18/22 09/05/22 History [Centrum Silver Men Tablet] Naproxen Sodium [Aleve] 220 mg PO 1200 07/18/22 09/05/22 History Omeprazole 40 mg PO BID 07/18/22 09/05/22 History HYDROcodone/APAP 5-325MG [[place]coe 1 tab PO Q6HR PRN 3 Days #24 tab 07/23/22 09/05/22 Rx 5-325] Allergies Allergy/AdvReac Type Severity Reaction Status Date / Time morphine Allergy Severe Itching Verified 09/05/22 08:47 acetaminophen [From Vicodin] Allergy Itching Verified 09/05/22 08:47 ceftriaxone [From Rocephin] Allergy Rash/Hives Verified 09/05/22 08:47 ertapenem [From Invanz] Allergy Itching Verified 09/05/22 08:47 hydrocodone [From Vicodin] Allergy Itching Verified 09/05/22 08:47 linezolid AdvReac stomach Verified 09/05/22 08:47 pain NSAIDS (Non-Steroidal AdvReac Instructed Verified 09/05/22 08:47 Anti-Inflamma to avoid D/T hx stomach ulcer Physical Examination Osteopathic Statement: *. No significant issues noted on an osteopathic structural exam other than those noted in the History and Physical/Consult.
[~2022-09-10 10:16] MED LIST changes: -ACETAMINOPHEN TAB 500 MG TAB PO PRN; +Pre Op ABX Message 1 EACH MISC MISCELLANE ONE; -TRANEXAMIC ACID 1,000 MG in SODIUM CHLORIDE 0.9% 100 ML IVPB PRN
[2022-09-10] MEDS ORDERED: LACTATED RINGERS 1,000 ML IV SCH (10:32)
[2022-09-10] MEDS ORDERED: LIDOCAINE 1% (10MG/ML) FOR IV START INTRADERMA PRN (10:32)
[2022-09-10] MEDS ORDERED: ONDANSETRON 4 MG/2 ML VIAL IVP ONE (10:32)
[2022-09-10] MEDS ORDERED: fentaNYL (PF) 50 MCG/ML 2 ML AMP IV PRN (10:32)
[2022-09-10] MEDS ORDERED: SUCCINYLCHOLINE CHLORIDE 200 MG/10 ML VIAL IV ONE (11:45)
[2022-09-10] MEDS ORDERED: fentaNYL (PF) 50 MCG/ML 2 ML AMP ONE (11:45)
[2022-09-10] MEDS ORDERED: CALCIUM GLUCONATE IN NACL 2 GM/100 ML IVPB ONE (11:45)
[2022-09-10] MEDS ORDERED: ePHEDrine 50 MG/ML 1 ML VIAL ONE (11:45)
[2022-09-10] MEDS ORDERED: LIDOCAINE 2% INJ 20 MG/ML (2 ML VIAL) ONE (11:45)
[2022-09-10] MEDS ORDERED: MIDAZOLAM 2 MG/2 ML VIAL ONE (11:45)
[2022-09-10] MEDS ORDERED: PROPOFOL 10 MG/ML 20 ML VIAL IV ONE (11:45)
[2022-09-10] MEDS ORDERED: BUPIVACAINE (PF) 0.5% 30 ML VIAL SQ ONE ×3 (11:49→12:45)
[2022-09-10] MEDS ORDERED: LIDOCAINE 1% INJ 10MG/ML (10 ML MDV) SQ ONE (11:50)
--- NOTE | 2022-09-10 12:51 | P.OP ---
Date of Procedure: 09/10/22 Preoperative Diagnosis: 1.) Left carpal tunnel syndrome 2.) Left cubital tunnel syndrome Postoperative Diagnosis: 1.) Left carpal tunnel syndrome 2.) Left cubital tunnel syndrome Procedure(s) Performed: 1.) Left endoscopic carpal tunnel release 2.) Left open cubital tunnel syndrome, in situ Anesthesia: LINDSEY Surgeon: Vish Whitney [employer]erial Installer #1: Roosevelt Hebert Estimated Blood Loss (ml): 0 Pathology: none sent Condition: stable Disposition: PACU Description of Procedure: This is a 81 year old male who presented today for a left endoscopic carpal tunnel release and open cubital tunnel release after having failed conservative treatment. Risks and benefits of surgery were discussed with the patient including bleeding, damage to surrounding tissue, infection, need for further surgery as well as risks of anesthesia including pulmonary embolism and even melissa th and the patient wished to proceed with surgical intervention. The patient was seen in the pre-operative area by myself. Consent and H&P were completed and updated. The correct extremity was marked in the pre-operative area by myself and all other questions were answered. Operative Narrative: The patient was brought to the operating room by the department of anesthesia. They remained on the portable stretcher and a rolling hand table was brought to the side of the operative extremity. Pre-operative time out was performed indicating the correct patient, procedure and laterality. All in the room agreed. Pre-operative antibiotics were given prior to skin incision. The patient was then drifted off to sleep by the department of anesthesia. A nonsterile tourniquet was then applied to the operative extremity and the left upper extremity was then prepped and draped in normal sterile fashion. The operative extremity was the exsanguinated with an esmarch bandage and the tourniquet was inflated to 250mmHg. 15 blade scalpel was utilized to make a transverse incision on the palmar skin just ulnar to the palmaris longus tendon at the level of the distal wrist crease. Ragnell retractor was then placed radially and blunt dissection was performed to reveal the distal forearm fascia. This was lifted with fine Tl pick ups and Littler tenotomy scissors were then used to open the forearm fascia transversely and a double skin hook was then placed. Hamate finder was placed into the carpal tunnel and then sequential sized dilators were inserted followed by the synovial elevator to separate the flexor tenosynovium from the undersurface of the transverse carpal ligament and a washboard texture was felt. The [employer] endoscopic carpal tunnel release system gun was the then inserted into the carpal tunnel hugging the deep portion of the transverse carpal ligament in line with the base of the ring finger. Transverse fibers of the ligament were directly visualized. Pressure was applied on the palm to reveal the distal extent of the transverse carpal ligament. The blade was then deployed and the distal half of the transverse carpal ligament was released. The scope was then brought distal again and remaining transverse fibers were incised with the blade. The proximal half of the transverse carpal ligament was then divided and again the scope was advanced distal and remaining transverse fibers were incised with the blade. The radial and ulnar leaflets were directly visualized and mobile consistent with complete release. Tenotomy scissors were then utilized to release the remaining distal forearm fascia under direct visualization taking care to preserve the palmar cutaneous branch of the median nerve. Attention was brought to the medial elbow. 15 blade scalpel was used to incise skin in between the medial epicondyle and olecranon in a curvlinear and longitudinal fashion. Blunt dissection was taken down through subcutaneous tissue with tenotomy scissors and branches of the MABCN were identified and protected. Dissection was carried proximally and the ulnar nerve was identified and released in it's entirety to the the intermuscular septum. Dissection was then carried distally and montes de oca's ligament was released at the medial epicondyle, the nerve appeared compressed at this location. Dissection was then carried out further distal and the fascia of the two heads of the FCU were incised and the ulnar nerve was decompressed with Dunning and tenotomy scissors and appeared to be tension free. The elbow was the flexed and extended and the ulnar nerve appeared to be stable in a tension free manner 20 0.5% bupivacaine was injected into the subcutaneous tissues. Skin closure was performed with interrupted 4-0 Monocryl sutures followed by running 4-0 Monocryl sutures, tourniquet was then let down and the hand had immediate perfusion. The patient was then woken by the department of anesthesia and transferred to PACU in stable condition. Vish Whitney D.O. Orthopedic Hand/Upper Extremity Surgeon
[2022-09-10 13:03] VITALS: TEMP 97.5
[2022-09-10 14:10] VITALS: PULSE 64
[2022-09-10 14:21] VITALS: BP 150/94; RESP 15
== END 2022-09-10 14:45 | disposition home or self-care (01) ==
LOC: OR 10:16
PROVIDERS: ATTEND Orthopaedic Surgery Hand Surgery
DX: G56.02 Carpal tunnel syndrome, left upper limb (principal); G56.22 Lesion of ulnar nerve, left upper limb; I25.10 Atherosclerotic heart disease of native coronary artery without angina pectoris; K21.9 Gastro-esophageal reflux disease without esophagitis; E78.5 Hyperlipidemia, unspecified; G47.30 Sleep apnea, unspecified; Z90.49 Acquired absence of other specified parts of digestive tract; Z95.5 Presence of coronary angioplasty implant and graft; Z90.89 Acquired absence of other organs; Z98.890 Other specified postprocedural states; Z87.891 Personal history of nicotine dependence; Z80.0 Family history of malignant neoplasm of digestive organs; Z88.5 Allergy status to narcotic agent; Z88.1 Allergy status to other antibiotic agents; Z88.6 Allergy status to analgesic agent; Z79.899 Other long term (current) drug therapy
CPT/HCPCS: 29848; 64718; J2250; J0330; J2405; J3010; J2704; J2001

== ENCOUNTER → 2023-11-04 | Outpatient (CLI) | payer MEDICARE ==
--- NOTE | 2023-11-04 20:30 | CT ---
EXAMINATION TYPE: CT chest wo con DATE OF EXAM: 11/04/2023 COMPARISON: 07/09/2020 HISTORY: 82-year-old male R06.02 shortness of breath, R05.3 chronic cough TECHNIQUE: Contiguous axial scanning of the chest without IV contrast. Coronal/sagittal reconstructio ns performed. CT DLP: 484.8mGycm. Automatic exposure control utilized for a dose reduction. FINDINGS: The heart is normal size without pericardial effusion. Extensive three-vessel coronary artery calcifi cations are present. Aneurysm ascending aorta at 4.4 cm, unchanged. Mild atherosclerotic arch calcifications with conventional arch vessel branching anatomy. Aneurysm upper descending thoracic aorta 4.1 cm, unchanged. Aneurysm mid descending thoracic aorta 3.4 cm, unchanged. Aneurysm at the thoracoabdominal junction 3.7 cm increased from 3.5 cm, previously. Minimal emphysematous change. No consolidation or pleural effusion. Punctate 2 mm left upper lobe pulmonary nodule, axial image 17 is unchanged. Punctate 3 mm lateral left lower lobe pulmonary nodule, axial image 39 is unchanged. 4 mm lateral left basilar pulmonary nodule, axillary and 44 is unchanged. Some strandy atelectasis/scarring at the lung bases is unchanged. Visualized upper abdomen shows multiple right renal cysts measuring up to 7.9 cm. A few small left li abdias lobe cysts measuring up to 1 cm. Bones: Extensive dictation throughout the thoracic spine with accentuated midthoracic kyphosis. IMPRESSION: 1. Minimal emphysematous change. A few scattered pulmonary nodules measuring up to 4 mm are unchanged and benign. 2. Strandy scarring or atelectasis at the lung bases. 3. Extensive three-vessel coronary artery calcifications.
== END | disposition home or self-care (01) ==
LOC: RADCTMAIN 13:37
PROVIDERS: ATTEND Family Medicine
DX: J43.9 Emphysema, unspecified (principal); I25.10 Atherosclerotic heart disease of native coronary artery without angina pectoris; R91.8 Other nonspecific abnormal finding of lung field; Z86.11 Personal history of tuberculosis
CPT/HCPCS: 71250

== ENCOUNTER → 2024-10-21 | Outpatient (CLI) | payer MEDICARE ==
[2024-10-21 12:01] LABS: African American GFR (CKD) 58 (>60 ml/min/1.73 sqM); Blood Urea Nitrogen 25 mg/dL (9-20); Non-African American GFR(CKD) 50 (>60 ml/min/1.73 sqM)
--- NOTE | 2024-10-21 15:39 | CT ---
EXAMINATION TYPE: CT abdomen pelvis wo/w con CT DLP: 2708 mGycm, Automated exposure control for dose reduction was used. DATE OF EXAM: 10/21/2024 2:07 PM COMPARISON: CT chest 11/04/2023 CLINICAL INDICATION:Male, 83 years old with history of C61 PROSTATE CANCER; F/U PROSTATE CA TECHNIQUE: Standard CT of the abdomen and pelvis before and after the uneventful administration of 100 mL of Isovue-370 intravenously. Oral contrast administered. Coronal and sagittal reformats were p erformed. FINDINGS: LOWER CHEST: Visualized lung bases are clear. ABDOMEN LIVER: Couple of left hepatic lobe cysts measuring up to 1.5 cm. GALLBLADDER AND BILE DUCTS: Unremarkable. PANCREAS: Unremarkable. SPLEEN: Unremarkable. ADRENAL GLANDS: Unremarkable. KIDNEYS AND URETERS: No evidence of hydronephrosis or renal calculus. The kidneys enhance symmetrical ly. Multiple right renal cysts with largest measuring up to 8.5 cm. These appear simple. Additional l eft renal cortical simple appearing 1.4 cm cyst. No follow-up recommended for the cyst. PELVIS BLADDER: Incompletely distended but grossly unremarkable. REPRODUCTIVE: Prostate is enlarged in size measuring 5.3 cm in transverse dimension. ABDOMEN & PELVIS STOMACH AND BOWEL: Stomach and duodenum are unremarkable. Enteric contrast reaches the distal small b owel. Distal colonic diverticulosis without evidence for acute diverticulitis. No evidence of bowel o bstruction. PERITONEUM: No evidence of pneumoperitoneum or free fluid. VASCULATURE: Mild to moderate atherosclerotic calcification of the aorta and its branches. Fusiform m id abdominal aortic aneurysm measuring up to 4.3 cm. MUSCULOSKELETAL: No acute osseous abnormalities. Postsurgical changes with bilateral pedicle screws a nd rods involving L5-S1 with fixed grade 1 anterolisthesis. Mild multilevel degenerative disc disease . No aggressive osseous lesion. No suspicious sclerotic lesion. LYMPH NODES: No enlarged lymph nodes greater than 1 centimeter short axis. SOFT TISSUE/ABDOMINAL WALL: Fat filled right inguinal hernia. IMPRESSION: 1. No acute abdominal/pelvic process. 2. No CT evidence for metastatic disease. 3. Prostatomegaly. 4. Mid abdominal aortic aneurysm measuring up to 4.3 cm. Annual surveillance is recommended. 5. Colonic diverticulosis without evidence for acute diverticulitis. [facility], , 10/21/2024 3:36 PM
== END | disposition home or self-care (01) ==
LOC: RADCTMAIN 10:57
PROVIDERS: ATTEND Radiology Radiation Oncology
DX: C61 Malignant neoplasm of prostate (principal); N40.0 Benign prostatic hyperplasia without lower urinary tract symptoms; I71.40 Abdominal aortic aneurysm, without rupture, unspecified; K57.30 Diverticulosis of large intestine without perforation or abscess without bleeding
CPT/HCPCS: 82565; 84520; 74178; 36415; Q9967

== ENCOUNTER → 2024-10-24 | Outpatient (CLI) | payer MEDICARE ==
--- NOTE | 2024-10-24 15:39 | NM ---
EXAMINATION TYPE: NM bone scan whole body DATE OF EXAM: 10/24/2024 COMPARISON: CT abdomen and pelvis 3 days earlier CLINICAL INDICATION: Male, 83 years old with history of C61 MALIGNANT NEOPLASM OF PROSTATE; Delayed whole-body scanning was performed following the injection of 23.1 mCi Tc 99m MDP. Images acq uired 3 hours post injection. FINDINGS: No suspicious increased radiotracer uptake to suggest osseous metastatic disease. Lucency from surgic al change at the bilateral knees is identified. There is increased radiotracer uptake likely reflecti ng degenerative change at the sternoclavicular joints bilaterally more prominent on the left noted. IMPRESSION: No scintigraphic evidence for metastatic disease to the bone. [facility], , 10/24/2024 3:37 PM
== END | disposition home or self-care (01) ==
LOC: RADNMMAIN 10:32
PROVIDERS: ATTEND Radiology Radiation Oncology
DX: C61 Malignant neoplasm of prostate (principal)
CPT/HCPCS: 78306; A9503